=== PATIENT | male | born 1955 | race Caucasian/White ===

== ENCOUNTER 2016-09-16 12:28 | Emergency (ER) | payer OTHER ==
[~2016-09-16] VITALS: Wt 78.0 kg
[~2016-09-16 12:28] MED LIST: FERR325C PO; HYDR-906 PO; OMEP20CA16 PO; ONDA4TAB8 PO; PEG1POWD PO; PROP10TA6 PO; RANI150T9 PO; SUCR1TAB56 PO
[2016-09-16 16:00] LABS: ALBUMIN 3.6 g/dl (3.3-4.9)
[2016-09-16 16:01] LABS: POTASSIUM 4.5 mmol/L (3.5-5.1)
[2016-09-16 16:02] LABS: HEMATOCRIT 38.9 % (42.0-52.0); HEMOGLOBIN 13.5 g/dl (14.0-18.0); MEAN CORPUSCULAR HEMOGLOBIN 32.1 pg (29.0-33.0); MEAN CORPUSCULAR HGB CONC 34.7 g/dl (32.0-37.0); MEAN CORPUSCULAR VOLUME 92.4 fl (82.0-101.0); MEAN PLATELET VOLUME 8.8 fl (7.4-10.4); PLATELET COUNT 57 10^3/UL (140-440); RED BLOOD COUNT 4.21 10^6/ul (4.70-6.10); RED CELL DISTRIBUTION WIDTH 15.3 % (11.5-14.5); UNCORRECTED WBC 4.5 10^3/ul (4.8-10.8); WHITE BLOOD COUNT 4.5 10^3/ul (4.8-10.8)
--- NOTE | 2016-09-16 16:02 | ERD ---
ER Documentation Chief Complaint Date/Time DATE: 09/16/16 TIME: 15:34 Chief Complaint R EY SWELLING X 3 DAYS HPI This is a 60-year-old who male presents to ED with bilateral eye swelling for 3 days. Eye swelling and redness has been constant. Patient denies using eye drops or any other medication for relief. Denies allergies to the environment. Patient has a history of cirrhosis from alcohol and hypertension for 7 years. Patient states his chest and the back of his head have felt warm for 3 days. Complains of bilateral temporal headache. Patient denies history of cardiac abnormality. Patient has mild pain in the right upper quadrant. He was last hospitalized 2 months ago from his cirrhosis. Denies nausea, vomiting, diarrhea , fever, dizziness or fainting ROS All systems reviewed and are negative except as per history of present illness. Medications Home Meds Active Scripts Azithromycin* (Zithromax*) 250 Mg Tablet, 250 MG PO .ZPACK DIRECTED, #6 TAB TAKE 500 MG (2 TABS) THE FIRST DAY THEN 250 MG (1 TAB) DAYS 2-5 Prov:MODE FRIAS PA-C 09/16/16 Polymyxin B Sulfate-TMP* (Polymyxin B-TMP Eye Drops*) 10 Ml Drops, 1 DROP BOTH EYES QID for 7 Days, EA Prov:MODE FRIAS PA-C 09/16/16 Tramadol HCl (Tramadol HCl) 50 Mg Tablet, 50 MG PO Q4 Y for PAIN, #15 TAB Prov:MODE FRIAS PA-C 09/16/16 Ranitidine Hcl* (Zantac*) 150 Mg Tablet, 150 MG PO BID Y for EPIGASTRIC PAIN, # 30 TAB Prov:MODE ALVES 05/18/16 Sucralfate* (Carafate*) 1 Gm Tab, 1 GM PO QID, #30 TAB Prov:MODE ALVES 05/18/16 Peg 3350/Na Sulf,Bicarb,Cl/KCl (Golytely Packet) 1 Each Powd.pack, 1 EACH PO DAILY for CONSTIPATION, #1 Prov:ANGIE PATEL MD 04/24/16 Ondansetron Hcl* (Zofran*) 4 Mg Tablet, 4 MG PO TID, #30 TAB Prov:ANGIE PATEL MD 04/24/16 Hydrocodone/Acetaminophen ([place] 5-325 Tablet) 1 Each Tablet, 1 TAB PO TID Y for PAIN, #12 TAB Prov:ANGIE PATEL MD 04/24/16 Reported Medications Omeprazole* (Omeprazole*) 20 Mg Capsule.dr, 20 MG PO DAILY, #30 CAP 10/01/15 Propranolol Hcl* (Propranolol Hcl*) 10 Mg Tablet, 10 MG PO BID, TAB 10/01/15 Ferrous Sulfate (Iron) 325 Mg Capsr, 325 MG PO BID 11/05/14 Allergies Allergies: Coded Allergies: Penicillins (Verified Allergy, Unknown, rash, 09/16/16) PMhx/Soc History of Surgery: Yes (GALLBALDDER REMOVAL 2008, HERNIA REPAIR 2008) Anesthesia Reaction: No Hx Neurological Disorder: No Hx Respiratory Disorders: No Hx Cardiac Disorders: Yes (htn) Hx Psychiatric Problems: No Hx Miscellaneous Medical Probl: No Hx Alcohol Use: Yes Hx Substance Use: No Hx Tobacco Use: No Smoking Status: Former smoker FmHx Family history is noncontributory to chief complaint Family History: diabetes Physical Exam Vitals Vital Signs Date Time Temp Pulse Resp B/P Pulse Ox O2 Delivery O2 Flow Rate FiO2 09/16/16 12:32 98.0 74 18 161/66 99 Physical Exam INITIAL VITAL SIGNS: Reviewed by me. GENERAL: Alert and interactive. No acute distress. HEAD: Head is normocephalic and atraumatic. EYES: EOMI. Bilateral erythema and conjunctiva injection. ENT: Moist mucosa. NECK: Supple. Full range of motion. RESPIRATORY: Normal respiratory effort. Clear breath sounds bilaterally. No wheezing, rales, or rhonchi. CV: Regular rate and rhythm. Normal S1 S2. No S3 or S4. No murmurs. ABDOMEN: Soft, Slight abdominal distention, no signs of ascites, non-tender. No guarding. No rebound. No masses. EXTREMITIES: No deformity. SKIN: Warm and dry. NEUROLOGIC: Alert and oriented x 4. Speech is normal. Moves all extremities equally. No motor or sensory deficits noted. Result Diagram: 09/16/16 1525 09/16/16 1525 Results 24 hrs Laboratory Tests Test 09/16/16 15:25 Alanine Aminotransferase (ALT/SGPT) 35IU/L Albumin 3.6g/dl Albumin/Globulin Ratio 1.12 Alkaline Phosphatase 81IU/L Anion Gap 16 Anisocytosis 1+ Aspartate Amino Transf (AST/SGOT) 34IU/L Blood Morphology Comment Blood Urea Nitrogen 10mg/dl Calcium Level 8.9mg/dl Carbon Dioxide Level 24mmol/L Chloride Level 105mmol/L Creatinine 0.64mg/dl Direct Bilirubin 0.00mg/dl Eosinophils # 0.110^3/ul Eosinophils % 3.0% Globulin 3.20g/dl Glucose Level 176mg/dl Hematocrit 38.9% Hemoglobin 13.5g/dl Indirect Bilirubin 0.6mg/dl Lipase 122U/L Lymphocytes # 0.910^3/ul Lymphocytes % 20.0% Macrocytosis RARE Mean Corpuscular Hemoglobin 32.1pg Mean Corpuscular Hemoglobin Concent 34.7g/dl Mean Corpuscular Volume 92.4fl Mean Platelet Volume 8.8fl Monocytes # 0.310^3/ul Monocytes % 6.0% Neutrophils # 3.210^3/ul Neutrophils % 71.0% Platelet Count 5710^3/UL Platelet Estimate PLT APPEAR DECREASED Potassium Level 4.5mmol/L Red Blood Count 4.2110^6/ul Red Cell Distribution Width 15.3% Sodium Level 140mmol/L Total Bilirubin 0.6mg/dl Total Protein 6.8g/dl White Blood Count 4.510^3/ul Procedures/MDM EMERGENCY DEPARTMENT COURSE / MEDICAL DECISION MAKING: This is a 60-year-old male who comes to the emergency room secondary to complaints of bilateral eye swelling, and chest "warmness" for 3 days. Patient has a history of cirrhosis and hypertension. The patient was given in the department. On re-evaluation, the patient was feeling improved. Lab results reviewed and showed slightly lowered platelets but no other significant acute abnormalities. Radiology: PROCEDURE: XR Chest. CLINICAL INDICATION: Chest pain TECHNIQUE: Single PA chest COMPARISON: 11/05/2014 FINDINGS: The cardiomediastinal silhouette is within normal limits of size .. Increased air space opacity in the medial aspect of the right lower lobe this may represent atelectasis or infiltrate. Lungs are otherwise clear without pleural effusion or focal consolidation. No pneumothorax. The osseous structures and soft tissues are unremarkable. IMPRESSION: 1. Increased air space opacity in the medial aspect of the right lower lobe. Atelectasis versus infiltrate.. PROCEDURE: US Abdomen (right upper quadrant). CLINICAL INDICATION: Abdominal pain. TECHNIQUE: Multiple real-time longitudinal and transverse images of the right upper quadrant of the abdomen were acquired utilizing a curved array transducer. Images were reviewed on a high-resolution PACS workstation. COMPARISON: Correlation with CT from 04/24/2016 FINDINGS: The liver is normal in size and demonstrates coarsened echotexture without focal mass or intrahepatic biliary dilatation. The gallbladder surgically absent. No intra or extrahepatic biliary dilatation is seen. The common bile duct measures 3.8 mm in maximal dimension. The visualized portions of the pancreas are unremarkable with obscuration of the tail of the pancreas. No free fluid is identified. The right kidney measures 11.0 cm in length. There is normal echogenicity within the right kidney. There is no perinephric fluid collection. No hydronephrosis, mass, or calculus is seen. IMPRESSION: 1. Coarsened hepatic echotexture suggesting chronic hepatic parenchymal disease. 2. Status post cholecystectomy. EKG: Normal sinus rhythm with a rate of 66 bpm. Normal EKG The primary diagnosis is pneumonia. Secondary diagnosis is conjunctivitis. I have low suspicion for cardiac ischemia or cardiopulmonary abnormalities due to normal EKG. I have low suspicion for orbital cellulitis, pancreatitis, or other emergent conditions at this time. Discharge: I have discussed the lab results and diagnostic findings with the patient and answered any questions or concerns. The patient was discharged with a prescription for Polytrim ophthalmic drops. The patient was advised to followup with their PMD in 1-2 days and to return to the Emergency Department if there are any new or worsening symptoms. The patient understood and agreed with the diagnosis, treatment and plan. The patient is stable for discharge at this time. Departure Diagnosis: Primary Impression: Pneumonia Additional Impression: Conjunctivitis Condition: Stable Patient Instructions: Conjunctivitis Caused by Infection Additional Instructions: Follow-up with your primary care physician within 1 week. Return to the emergency department immediately should you have any new or worsening symptoms, uncontrolled fevers, or other unexplained symptoms. Take all medications as directed. MODE FRIAS PA-C Sep 16, 2016 15:46
[2016-09-16 16:03] LABS: BILIRUBIN,INDIRECT 0.6 mg/dl (0-1.1); BILIRUBIN,TOTAL 0.6 mg/dl (0.2-1.3); CREATININE 0.64 mg/dl (0.61-1.24)
[2016-09-16 16:04] LABS: ALBUMIN/GLOBULIN RATIO 1.12; CALCIUM 8.9 mg/dl (8.4-10.2); TOTAL PROTEIN 6.8 g/dl (6.1-8.1)
--- NOTE | 2016-09-16 16:13 | RADRPT ---
PROCEDURE: XR Chest. CLINICAL INDICATION: Chest pain TECHNIQUE: Single PA chest COMPARISON: 11/05/2014 FINDINGS: The cardiomediastinal silhouette is within normal limits of size .. Increased air space opacity in t he medial aspect of the right lower lobe this may represent atelectasis or infiltrate. Lungs are ot herwise clear without pleural effusion or focal consolidation. No pneumothorax. The osseous struct ures and soft tissues are unremarkable. IMPRESSION: 1. Increased air space opacity in the medial aspect of the right lower lobe. Atelectasis versus inf iltrate.. RPTAT:AAJJ Jeramy Barba Physician Date Time Electronically viewed and signed by Physician Rossana on 09/16/2016 16:13 JAQUAN/
[2016-09-16 16:21] LABS: CONDITION 1; LH ANALYZER COMMENTS 1
[2016-09-16 16:51] LABS: EOSINOPHILS # 0.1 10^3/ul (0.0-0.5); LYMPHOCYTES # 0.9 10^3/ul (0.8-2.9); MONOCYTE # 0.3 10^3/ul (0.3-0.9); NEUTROPHIL # 3.2 10^3/ul (1.6-7.5)
--- NOTE | 2016-09-16 16:51 | RADRPT ---
PROCEDURE: US Abdomen (right upper quadrant). CLINICAL INDICATION: Abdominal pain. TECHNIQUE: Multiple real-time longitudinal and transverse images of the right upper quadrant of th e abdomen were acquired utilizing a curved array transducer. Images were reviewed on a high-resoluti on PACS workstation. COMPARISON: Correlation with CT from 04/24/2016 FINDINGS: The liver is normal in size and demonstrates coarsened echotexture without focal mass or intrahepati c biliary dilatation. The gallbladder surgically absent. No intra or extrahepatic biliary dilata tion is seen. The common bile duct measures 3.8 mm in maximal dimension. The visualized portions o f the pancreas are unremarkable with obscuration of the tail of the pancreas. No free fluid is iden tified. The right kidney measures 11.0 cm in length. There is normal echogenicity within the right kidney. There is no perinephric fluid collection. No hydronephrosis, mass, or calculus is seen. IMPRESSION: 1. Coarsened hepatic echotexture suggesting chronic hepatic parenchymal disease. 2. Status post cholecystectomy. RPTAT: JJ .Evans Gutierrez MD, Date Time Electronically viewed and signed by .Evans Gutierrez MD, on 09/16/2016 16:51 .A/
[2016-09-16 16:52] LABS: ANISOCYTOSIS 1+; PLATELET ESTIMATE PLT APPEAR DECREASED
[2016-09-16] MEDS ORDERED: POLY10DR19 BOTH EYES (17:04)
[2016-09-16] MEDS ORDERED: TRAM50TA2 PO (17:04)
[2016-09-16] MEDS ORDERED: AZIT250T94 PO (17:06)
== END 2016-09-16 17:19 | disposition home or self-care (01) ==
LOC: FTE 12:28
DX: J18.9 Pneumonia, unspecified organism (principal); H10.9 Unspecified conjunctivitis; I10 Essential (primary) hypertension; Z87.891 Personal history of nicotine dependence
CPT/HCPCS: 71010; 76705; 80053; 83690; 85025; 93005; Z7502

== ENCOUNTER 2017-02-19 08:46 | Emergency (ER) | payer OTHER ==
[~2017-02-19] VITALS: Ht 175.3 cm; Wt 83.8 kg
[~2017-02-19 08:46] MED LIST changes: +AZIT250T94 PO; +POLY10DR19 BOTH EYES; +TRAM50TA2 PO
[2017-02-19 08:49] VITALS: Ht 175.3 cm; Wt 83.8 kg
[2017-02-19] MEDS ORDERED: ONDANSETRON 4 MG INJ IV STA (08:59)
[2017-02-19] MEDS ORDERED: morphine 4 MG/ML VIAL IV STA (08:59)
[2017-02-19 09:39] LABS: ADD SCAN DIFF NO
[2017-02-19 09:53] LABS: ABNORMAL IP MESSAGE 1; HEMATOCRIT 37.9 % (42.0-52.0); HEMOGLOBIN 13.3 g/dl (14.0-18.0); MEAN CORPUSCULAR HEMOGLOBIN 31.7 pg (29.0-33.0); MEAN CORPUSCULAR HGB CONC 35.1 g/dl (32.0-37.0); MEAN CORPUSCULAR VOLUME 90.2 fl (82.0-101.0); MEAN PLATELET VOLUME 11.5 fl (7.4-10.4); RED CELL DISTRIBUTION WIDTH 14.7 % (11.5-14.5); WHITE BLOOD COUNT 3.1 10^3/ul (4.8-10.8)
--- NOTE | 2017-02-19 09:55 | RADRPT ---
PROCEDURE: CT Abdomen and Pelvis without contrast. CLINICAL INDICATION: Abdominal pain, and distension. TECHNIQUE: CT scan of the abdomen and pelvis without contrast was performed on a multidetector hig h-resolution CT scanner. The patient was scanned without intravenous contrast. Coronal and sagittal reformatted images were obtained from the axial source images. Images were reviewed on a high-resol [employer] PACS workstation. The total exam CTDI equals 15.46 mGy and the total exam DLP equals 1047.91 m Gy-cm. One or more of the following dose reduction techniques were used: Automated exposure control. Adjustment of the mA and/or kV according to patient size. Use of iterative reconstruction technique. COMPARISON: CT abdomen and pelvis 04/24/2016 FINDINGS: CT abdomen: The lung bases are remarkable for subsegmental atelectasis in the right lung base. The heart size i s normal, without pericardial thickening or effusion. There is an atrophic right anterior hepatic lobe with diffuse fatty infiltration and nodular contour in keeping with cirrhosis. There is marked splenomegaly. Small-caliber para esophageal and upper abdominal varices are again noted. Splenorenal shunt appears more prominent on the current study. Th ere is small volume abdominopelvic ascites. The stomach is partially collapsed, but is grossly unremarkable. The pancreas as visualized is norm al. The gallbladder is surgically absent. There is no evidence for biliary dilatation. The adrenal glands are symmetric and normal. The kidneys are symmetrically unremarkable as well. No renal puja culus or obstructive uropathy or mass lesion is seen. The aorta is of normal caliber. There is no retroperitoneal lymphadenopathy. The patricia hepatis reg ion is clear. The bowel and mesentery, as visualized, are equally unremarkable. There is a small hi atal hernia. CT pelvis: There are fat and fluid containing bilateral inguinal scrotal hernias right being more prominent. T he small bowel loops situated within the pelvis are unremarkable. The pelvic organs are normal. Th e pelvic sidewalls and inguinal regions are clear. The sigmoid colon and rectum are remarkable for sigmoid diverticulosis. No mass, lymphadenopathy, or free fluid is seen. No acute inflammation is seen. The surrounding osseous structures are remarkable for degenerative spondylosis of the spine. No osteolytic or osteoblastic lesion is detected. IMPRESSION: 1. Morphologic changes of cirrhosis. 2. Stigmata of portal hypertension with evidence of marked splenomegaly, small volume abdominopelvi c ascites, small-caliber para esophageal and upper abdominal varices. Interval increase in caliber of the splenorenal shunt. 3. Sigmoid diverticulosis without evidence of acute diverticulitis. 4. Fat and fluid containing bilateral inguinal scrotal hernias. 5. Status post cholecystectomy. No biliary ductal dilatation. 6. Small hiatal hernia. RPTAT: BB .Jose Hughes MD, MD Date Time Electronically viewed and signed by .Jose Hughes MD, on 02/19/2017 09:55 .O/
[2017-02-19 10:00] LABS: PLATELET COUNT 24 10^3/UL (140-415)
[2017-02-19 10:05] LABS: INR 1.29; PROTIME 16.2 Sec (12.2-14.2); PT RATIO 1.3
[2017-02-19 10:06] LABS: PARTIAL THROMBOPLASTIN TIME 32.7 Sec (25.0-35.0)
[2017-02-19 10:10] LABS: ALBUMIN 4.2 g/dl (3.3-4.9); ALBUMIN/GLOBULIN RATIO 1.55; CALCIUM 8.3 mg/dl (8.4-10.2); CREATININE 0.6 mg/dl (0.61-1.24); POTASSIUM 3.6 mmol/L (3.5-5.1); TOTAL PROTEIN 6.9 g/dl (6.1-8.1)
[2017-02-19 10:12] LABS: ADD UMIC YES; UR ASCORBIC ACID NEGATIVE (NEGATIVE); UR BILIRUBIN (Dip) NEGATIVE (NEGATIVE); UR BLOOD (Dip) 2+ mg/dL (NEGATIVE); UR CLARITY CLEAR (CLEAR); UR COLOR YELLOW (YELLOW); UR GLUCOSE (Dip) NEGATIVE (NEGATIVE); UR KETONES (Dip) TRACE mg/dL (NEGATIVE); UR LEUKOCYTE ESTERASE (Dip) NEGATIVE Leu/ul (NEGATIVE); UR NITRITE (Dip) NEGATIVE (NEGATIVE); UR RBC 1 /HPF (0-5); UR SPECIFIC GRAVITY (Dip) 1.005 (1.003-1.030); UR TOTAL PROTEIN (Dip) NEGATIVE (NEGATIVE); UR UROBILINOGEN (Dip) NEGATIVE (NEGATIVE)
--- NOTE | 2017-02-19 10:36 | ERD ---
ER Documentation Chief Complaint Date/Time DATE: 02/19/17 TIME: 10:34 Chief Complaint Needs paracentesis HPI This is a 61-year-old male with a history of liver cirrhosis who presents to the emergency room for evaluation of abdominal discomfort, and mild distention. He states his symptoms have been present for 1 weeks duration. He denies fevers associated with this, denies any nausea, vomiting or diarrhea. The patient denies any aggravating or relieving factors for his symptoms and came to the emergency room today for evaluation. Patient does state that he has had a paracentesis in the past and states that he thinks he might need another one. ROS All systems reviewed and are negative except as per history of present illness. Medications Home Meds Active Scripts Azithromycin* (Zithromax*) 250 Mg Tablet, 250 MG PO .ZPACK DIRECTED, #6 TAB TAKE 500 MG (2 TABS) THE FIRST DAY THEN 250 MG (1 TAB) DAYS 2-5 Prov:MODE FRIAS PA-C 09/16/16 Polymyxin B Sulfate-TMP* (Polymyxin B-TMP Eye Drops*) 10 Ml Drops, 1 DROP BOTH EYES QID for 7 Days, EA Prov:MODE FRIAS PA-C 09/16/16 Tramadol HCl (Tramadol HCl) 50 Mg Tablet, 50 MG PO Q4 Y for PAIN, #15 TAB Prov:MODE FRIAS PA-C 09/16/16 Ranitidine Hcl* (Zantac*) 150 Mg Tablet, 150 MG PO BID Y for EPIGASTRIC PAIN, # 30 TAB Prov:MODE ALVES 05/18/16 Sucralfate* (Carafate*) 1 Gm Tab, 1 GM PO QID, #30 TAB Prov:MODE ALVES 05/18/16 Peg 3350/Na Sulf,Bicarb,Cl/KCl (Golytely Packet) 1 Each Powd.pack, 1 EACH PO DAILY for CONSTIPATION, #1 Prov:ANGIE PATEL MD 04/24/16 Ondansetron Hcl* (Zofran*) 4 Mg Tablet, 4 MG PO TID, #30 TAB Prov:ANGIE PATEL MD 04/24/16 Hydrocodone/Acetaminophen ([place] 5-325 Tablet) 1 Each Tablet, 1 TAB PO TID Y for PAIN, #12 TAB Prov:ANGIE PATEL MD 04/24/16 Reported Medications Omeprazole* (Omeprazole*) 20 Mg Capsule.dr, 20 MG PO DAILY, #30 CAP 10/01/15 Propranolol Hcl* (Propranolol Hcl*) 10 Mg Tablet, 10 MG PO BID, TAB 10/01/15 Ferrous Sulfate (Iron) 325 Mg Capsr, 325 MG PO BID 11/05/14 Allergies Allergies: Coded Allergies: Penicillins (Verified Allergy, Unknown, rash, 02/19/17) PMhx/Soc History of Surgery: Yes (GALLBALDDER REMOVAL 2008, HERNIA REPAIR 2008) Anesthesia Reaction: No Hx Neurological Disorder: No Hx Respiratory Disorders: No Hx Cardiac Disorders: Yes (htn) Hx Psychiatric Problems: No Hx Miscellaneous Medical Probl: No Hx Alcohol Use: Yes Hx Substance Use: No Hx Tobacco Use: No Smoking Status: Never smoker Physical Exam Vitals Vital Signs Date Time Temp Pulse Resp B/P Pulse Ox O2 Delivery O2 Flow Rate FiO2 02/19/17 08:49 98.1 82 18 187/89 96 Physical Exam INITIAL VITAL SIGNS: Reviewed by me GENERAL: The patient is well developed and appropriate for usual state of health in no apparent distress HEENT: Pupils equal, round, and reactive to light. EOMI. There is no scleral icterus. NECK: C-spine is soft and supple, there is no meningismus. There is no cervical lymphadenopathy. LUNGS: Clear to auscultation bilaterally. There are no rales, wheezes or rhonchi. HEART: Regular rate and rhythm, no murmurs, clicks, rubs or gallops. ABDOMEN: Epigastric tenderness to palpation, mild distention, otherwise nontender there are bowel sounds in all four quadrants. No rebound or guarding. EXTREMITIES: There is no peripheral cyanosis or edema. No focal swelling or erythema. NEUROLOGICAL: The patient moves all four extremities with 5/5 strength. Cranial nerves II - XII are intact. Normal gait. Alert and oriented SKIN: There is no apparent rash or petechiae. HEME/LYMPHATIC: There is no evidence of excessive bruising or lymphedema. PSYCHIATRIC: The patient does not appear anxious or depressed. Result Diagram: 02/19/17 0920 02/19/17 0920 Results 24 hrs Laboratory Tests Test 02/19/17 09:20 02/19/17 09:30 White Blood Count 3.110^3/ul Red Blood Count 4.2010^6/ul Hemoglobin 13.3g/dl Hematocrit 37.9% Mean Corpuscular Volume 90.2fl Mean Corpuscular Hemoglobin 31.7pg Mean Corpuscular Hemoglobin Concent 35.1g/dl Red Cell Distribution Width 14.7% Platelet Count 2410^3/UL Mean Platelet Volume 11.5fl Prothrombin Time 16.2Sec Prothrombin Time Ratio 1.3 INR International Normalized Ratio 1.29 Activated Partial Thromboplast Time 32.7Sec Sodium Level 137mmol/L Potassium Level 3.6mmol/L Chloride Level 103mmol/L Carbon Dioxide Level 22mmol/L Anion Gap 16 Blood Urea Nitrogen 6mg/dl Creatinine 0.60mg/dl Glucose Level 96mg/dl Calcium Level 8.3mg/dl Total Bilirubin 2.0mg/dl Direct Bilirubin 0.00mg/dl Indirect Bilirubin 2.0mg/dl Aspartate Amino Transf (AST/SGOT) 110IU/L Alanine Aminotransferase (ALT/SGPT) 77IU/L Alkaline Phosphatase 78IU/L Total Protein 6.9g/dl Albumin 4.2g/dl Globulin 2.70g/dl Albumin/Globulin Ratio 1.55 Lipase 96U/L Urine Color YELLOW Urine Clarity CLEAR Urine pH 6.0 Urine Specific [place] 1.005 Urine Ketones TRACEmg/dL Urine Nitrite NEGATIVEmg/dL Urine Bilirubin NEGATIVEmg/dL Urine Urobilinogen NEGATIVEmg/dL Urine Leukocyte Esterase NEGATIVELeu/ul Urine Microscopic RBC 1/HPF Urine Microscopic WBC 0/HPF Urine Hemoglobin 2+mg/dL Urine Glucose NEGATIVEmg/dL Urine Total Protein NEGATIVEmg/dl Current Medications Medications (Trade) Dose Ordered Sig/Landon Route PRN Reason Start Time Stop Time Status Last Admin Dose Admin Morphine Sulfate (morphine) 4 mg ONCE STAT IV 02/19/17 08:59 02/19/17 09:00 DC 02/19/17 09:27 Ondansetron HCl (Zofran Inj) 4 mg ONCE STAT IV 02/19/17 08:59 02/19/17 09:00 DC 02/19/17 09:27 Procedures/MDM CT abdomen pelvis without: 1. Morphologic changes of cirrhosis. 2. Stigmata of portal hypertension with evidence of marked splenomegaly, small volume abdominopelvic ascites, small-caliber para esophageal and upper abdominal varices. Interval increase in caliber of the splenorenal shunt. 3. Sigmoid diverticulosis without evidence of acute diverticulitis. 4. Fat and fluid containing bilateral inguinal scrotal hernias. 5. Status post cholecystectomy. No biliary ductal dilatation. 6. Small hiatal hernia. This 61-year-old male presents to the emergency room for evaluation of abdominal distention. When I evaluated this patient he was only mildly distended and had epigastric tenderness to palpation. Lab work was obtained and lab work does show pancytopenia with thrombocytopenia. CT of the abdomen pelvis was also obtained to rule out an obstruction and a CT of the abdomen and pelvis does not show any obstruction and does not show large amount of ascites which can be drained with paracentesis. This patient is afebrile. His pain is controlled with morphine in the ER and he will be discharged at this time with a prescription for [place] for breakthrough pain. Departure Diagnosis: Primary Impression: Pancytopenia Additional Impressions: Abdominal pain Liver cirrhosis Condition: Stable ARMEN JEONG DO Feb 19, 2017 10:36
[2017-02-19] MEDS ORDERED: HYDR-906 PO (10:37)
[2017-02-19 11:05] VITALS: BP 142/76; PULSE 78; RESP 18; TEMP 98.1
[2017-02-19 12:07] LABS: EOSINOPHILS # 0.2 10^3/ul (0.0-0.5); LYMPHOCYTES # 0.3 10^3/ul (0.8-2.9); MONOCYTE # 0.1 10^3/ul (0.3-0.9); NEUTROPHIL # 2.4 10^3/ul (1.6-7.5); PLATELET ESTIMATE PLT APPEAR DECREASED
== END 2017-02-19 11:10 | disposition home or self-care (01) ==
LOC: E/R 08:46
DX: D61.818 Other pancytopenia (principal); K74.60 Unspecified cirrhosis of liver; I10 Essential (primary) hypertension
CPT/HCPCS: 74176; 80053; 81001; 83690; 85025; 85610; 85730; J2270; J2405; 36415; 96374; 96375

== ENCOUNTER 2018-09-03 09:15 | Emergency (ER) | payer OTHER ==
[~2018-09-03] VITALS: Wt 79.0 kg
[~2018-09-03 09:15] MED LIST changes: +AZIT250T PO; -AZIT250T94 PO; +HYDR-4011 PO; -HYDR-906 PO; +RANI150T35 PO; -RANI150T9 PO
[2018-09-03 09:22] VITALS: BP 146/66; PULSE 77; RESP 18
[2018-09-03] MEDS ORDERED: AZIT250T PO (09:43)
[2018-09-03] MEDS ORDERED: D-ME473S2 PO (09:43)
--- NOTE | 2018-09-03 09:45 | ERD ---
ER Documentation Chief Complaint Chief Complaint COUGH X 2 WEEKS HPI 62-year-old male presents with worsening productive cough for the last 2 weeks. Denies shortness of breath, chest pain, fevers. Denies any leg swelling, hemoptysis. ROS All systems reviewed and are negative except as per history of present illness. Medications Home Meds Active Scripts Dextromethorphan Hb-Promethazine Hcl* (Promethazine DM* Syrup) 473 Ml Syrup, 5 ML PO Q6 PRN for COUGH for 5 Days, ML Prov:MARIOLA HEATH MD 09/03/18 Azithromycin* (Zithromax*) 250 Mg Tablet, 250 MG PO .ZPACK DIRECTED, #6 TAB TAKE 500 MG (2 TABS) THE FIRST DAY THEN 250 MG (1 TAB) DAYS 2-5 Prov:MARIOLA HEATH MD 09/03/18 Hydrocodone/Acetaminophen ([place] 5-325 Tablet) 1 Each Tablet, 1 TAB PO Q6H PRN for PAIN, #20 TAB Prov:ARMEN JEONG DO 02/19/17 Azithromycin* (Zithromax*) 250 Mg Tablet, 250 MG PO .ZPACK DIRECTED, #6 TAB TAKE 500 MG (2 TABS) THE FIRST DAY THEN 250 MG (1 TAB) DAYS 2-5 Prov:MODE FIRAS PA-C 09/16/16 Polymyxin B Sulfate-TMP* (Polymyxin B-TMP Eye Drops*) 10 Ml Drops, 1 DROP BOTH EYES QID for 7 Days, EA Prov:MODE FRIAS PA-C 09/16/16 Tramadol HCl (Tramadol HCl) 50 Mg Tablet, 50 MG PO Q4 PRN for PAIN, #15 TAB Prov:MOED FRIAS PA-C 09/16/16 Ranitidine Hcl* (Zantac*) 150 Mg Tablet, 150 MG PO BID PRN for EPIGASTRIC PAIN, #30 TAB Prov:MODE ALVES 05/18/16 Sucralfate* (Carafate*) 1 Gm Tab, 1 GM PO QID, #30 TAB Prov:MODE ALVES 05/18/16 Peg 3350/Na Sulf,Bicarb,Cl/KCl (Golytely Packet) 1 Each Powd.pack, 1 EACH PO DAILY for CONSTIPATION, #1 Prov:ANGIE PATEL MD 04/24/16 Ondansetron Hcl* (Zofran*) 4 Mg Tablet, 4 MG PO TID, #30 TAB Prov:ANGIE PATEL MD 04/24/16 Hydrocodone/Acetaminophen ([place] 5-325 Tablet) 1 Each Tablet, 1 TAB PO TID PRN for PAIN, #12 TAB Prov:ANGIE PATEL MD 04/24/16 Reported Medications Omeprazole* (Omeprazole*) 20 Mg Capsule.dr, 20 MG PO DAILY, #30 CAP 10/01/15 Propranolol Hcl* (Propranolol Hcl*) 10 Mg Tablet, 10 MG PO BID, TAB 10/01/15 Ferrous Sulfate (Iron) 325 Mg Capsr, 325 MG PO BID 11/05/14 Allergies Allergies: Coded Allergies: Penicillins (Verified Allergy, Unknown, rash, 02/19/17) PMhx/Soc History of Surgery: Yes (GALLBALDDER REMOVAL 2008, HERNIA REPAIR 2008) Anesthesia Reaction: No Hx Neurological Disorder: No Hx Respiratory Disorders: No Hx Cardiac Disorders: Yes (htn) Hx Psychiatric Problems: No Hx Miscellaneous Medical Probl: No Hx Alcohol Use: Yes Hx Substance Use: No Hx Tobacco Use: No FmHx Family History: No diabetes, No coronary disease, No other Physical Exam Vitals Vital Signs Date Temp Pulse Resp B/P (MAP) Pulse Ox O2 O2 Flow FiO2 Time Delivery Rate 09/03/18 98.1 77 18 146/66 99 09:22 (92) Physical Exam Const: No acute distress Head: Atraumatic Eyes: Normal Conjunctiva ENT: Normal External Ears, Nose and Mouth. TMs and oropharynx normal. Neck: Full range of motion. No meningismus. No JVD. Resp: Clear to auscultation bilaterally with no rales, wheezing or retractions. Slight rhonchi. Cardio: Regular rate and rhythm, no murmurs Abd: Soft, non tender, non distended. Normal bowel sounds Skin: No petechiae or rashes Back: No midline or flank tenderness Ext: No cyanosis, or edema. No calf swelling or Homans sign. Neur: Awake and alert Psych: Normal Mood and Affect Procedures/MDM Patient presents with productive cough over the last 2-3 weeks. He has no signs of hypoxemia, rest or distress, signs of abdominal pain, chest pain, pneumonia on exam. Given duration per patient request we will treat empirically with Zit hromax, promethazine DM, primary care follow-up and return precautions. The patient was stable with no new complaints during the ER course. Clinically, there is no current evidence to suggest meningitis, sepsis, acute abdomen, pneumonia, stroke, acute coronary syndrome, pulmonary embolism, aortic dissection or any other emergent condition appearing to require further evaluation or hospitalization. Patient counseled regarding my diagnostic impression and care plan. Prior to discharge all questions answered. Pt agrees with treatment plan and understands strict return precautions. Pt is instructed to follow up with primary care provider within 24-48 hours. Precautionary instructions provided including instructions to return to the ER if not improving or for any worsening or changing symptoms or concerns. Departure Diagnosis: Primary Impression: Cough Condition: Stable Patient Instructions: Bronchitis, Antiobiotic Treatment (Adult) Referrals: [facility] (PCP) Additional Instructions: Recheck for new or worsening symptoms with primary care doctor. MARIOLA HEATH MD Sep 03, 2018 09:45
== END 2018-09-03 10:16 | disposition home or self-care (01) ==
LOC: FTE 09:15
DX: R05 Cough (principal); I10 Essential (primary) hypertension
CPT/HCPCS: 99283

== ENCOUNTER 2019-02-19 15:18 | Inpatient (IN) | payer OTHER ==
[~2019-02-19] VITALS: Ht 170.2 cm; Wt 82.0 kg
[~2019-02-19 15:18] MED LIST changes: +ATEN-51 PO; +D-ME473S2 PO; +FURO20TA3 PO; +LACT20SO2 PO; +MULTI PO; +PANT40TA4 PO; +PROP20TA4 PO; +SPIR50TA PO
--- NOTE | 2019-02-19 15:43 | ERD ---
ER Documentation Chief Complaint Chief Complaint AP SINCE LAST NIGHT HPI 63-year-old male history of hypertension, liver cirrhosis, esophageal varices status post ligation and GI bleed presents to the ED complaining of a 1 day hist ory of crampy, generalized, moderate, nonradiating abdominal pain. He denies nausea, vomiting, diarrhea or constipation. No hematemesis, hematochezia or melanotic stools. No relieving or exacerbating factors. No chest pain, palpitations or shortness of breath. Denies dysuria, polyuria, hematuria or flank pain. No fevers or chills. ROS All systems reviewed and are negative except as per history of present illness. Medications Home Meds Reported Medications Sucralfate* (Carafate*) 1 Gm Tab, 1 GM PO AC MEALS AND BEDTIME, TAB 02/19/19 Spironolactone* (Aldactone*) 50 Mg Tablet, 50 MG PO DAILY, #30 TAB 02/19/19 Pantoprazole* (Pantoprazole*) 40 Mg Tablet.dr, 40 MG PO AC BREAKFAST, TAB 02/19/19 Multivitamins* (Theragran*) 1 Tab Tab, 1 TAB PO DAILY, TAB 02/19/19 Furosemide* (Furosemide*) 20 Mg Tablet, 20 MG PO DAILY, #60 TAB 02/19/19 Atenolol* (Atenolol*) 25 Mg Tablet, 25 MG PO DAILY, #30 TAB 02/19/19 Hydrocodone/Acetaminophen ([place] 5-325 Tablet) 1 Each Tablet, 1 EACH PO Q4H WHILE AWAKE, TAB 02/19/19 Discontinued Reported Medications Omeprazole* (Omeprazole*) 20 Mg Capsule.dr, 20 MG PO DAILY, #30 CAP 10/01/15 Propranolol Hcl* (Propranolol Hcl*) 10 Mg Tablet, 10 MG PO BID, TAB 10/01/15 Ferrous Sulfate (Iron) 325 Mg Capsr, 325 MG PO BID 11/05/14 Discontinued Scripts Dextromethorphan Hb-Promethazine Hcl* (Promethazine DM* Syrup) 473 Ml Syrup, 5 ML PO Q6 PRN for COUGH for 5 Days, ML Prov:MARIOLA HEATH MD 09/03/18 Azithromycin* (Zithromax*) 250 Mg Tablet, 250 MG PO .GT DIRECTED, #6 TAB TAKE 500 MG (2 TABS) THE FIRST DAY THEN 250 MG (1 TAB) DAYS 2-5 Prov:MARIOLA HEATH MD 09/03/18 Hydrocodone/Acetaminophen ([place] 5-325 Tablet) 1 Each Tablet, 1 TAB PO Q6H PRN for PAIN, #20 TAB Prov:ARMEN JEONG DO 02/19/17 Azithromycin* (Zithromax*) 250 Mg Tablet, 250 MG PO .GT DIRECTED, #6 TAB TAKE 500 MG (2 TABS) THE FIRST DAY THEN 250 MG (1 TAB) DAYS 2-5 Prov:MODE FRIAS PA-C 09/16/16 Polymyxin B Sulfate-TMP* (Polymyxin B-TMP Eye Drops*) 10 Ml Drops, 1 DROP BOTH EYES QID for 7 Days, EA Prov:MODE FRIAS PA-C 09/16/16 Tramadol HCl (Tramadol HCl) 50 Mg Tablet, 50 MG PO Q4 PRN for PAIN, #15 TAB Prov:MODE FRIAS PA-C 09/16/16 Ranitidine Hcl* (Zantac*) 150 Mg Tablet, 150 MG PO BID PRN for EPIGASTRIC PAIN, #30 TAB Prov:MODE ALVES 05/18/16 Sucralfate* (Carafate*) 1 Gm Tab, 1 GM PO QID, #30 TAB Prov:MODE ALVES 05/18/16 Peg 3350/Na Sulf,Bicarb,Cl/KCl (Golytely Packet) 1 Each Powd.pack, 1 EACH PO DAILY for CONSTIPATION, #1 Prov:ANGIE PATEL MD 04/24/16 Ondansetron Hcl* (Zofran*) 4 Mg Tablet, 4 MG PO TID, #30 TAB Prov:ANGIE PATEL MD 04/24/16 Hydrocodone/Acetaminophen ([place] 5-325 Tablet) 1 Each Tablet, 1 TAB PO TID PRN for PAIN, #12 TAB Prov:ANGIE PATEL MD 04/24/16 Allergies Allergies: Coded Allergies: Penicillins (Verified Allergy, Unknown, rash, 02/19/19) PMhx/Soc History of Surgery: Yes (GALLBALDDER REMOVAL 2008, HERNIA REPAIR 2008) Anesthesia Reaction: No Hx Neurological Disorder: No Hx Respiratory Disorders: No Hx Cardiac Disorders: Yes (htn) Hx Psychiatric Problems: No Hx Miscellaneous Medical Probl: No Hx Alcohol Use: Yes (stopped 2015) Hx Substance Use: No Hx Tobacco Use: No FmHx No cancer or stroke Physical Exam Vitals Temp: 98.1. Pulse: 105. Respirations: 18. Blood pressure: 163/79. O2 saturation 99% on room air. Physical Exam Const: Alert, moderate distress Head: Atraumatic Eyes: Normal Conjunctiva. Sclera anicteric. ENT: Normal External Ears, Nose and Mouth. Mucous membranes moist. No erythema or exudate. Neck: Full range of motion. Nontender. No JVD. Resp: Breath sounds are minimally decreased at the bases but otherwise clear to auscultation bilaterally without rales rhonchi wheezes. Cardio: Regular rate and rhythm, no murmurs Abd: Soft, distended, diffusely tender without rebound or guarding. No masses. Skin: No petechiae or rashes Back: No midline or CVA tenderness. Ext: No cyanosis, or edema. No calf swelling or tenderness. Neur: Alert and oriented. Cranial nerves II through XII are grossly intact. Motor and sensory equal bilaterally. No focal deficit. Psych: Normal Mood and Affect Result Diagram: 02/24/19 0549 02/24/19 0549 Results 24 hrs Laboratory Tests Test 02/19/19 15:55 02/19/19 15:57 02/19/19 17:12 Phosphorus Level 3.7 mg/dl Magnesium Level 1.4 mg/dl White Blood Count 9.0 10^3/ul Red Blood Count 4.15 10^6/ul Hemoglobin 12.4 g/dl Hematocrit 36.6 % Mean Corpuscular Volume 88.2 fl Mean Corpuscular Hemoglobin 29.9 pg Mean Corpuscular 33.9 g/dl Hemoglobin Concent Red Cell Distribution Width 14.3 % Platelet Count 32 10^3/UL Mean Platelet Volume 12.5 fl Immature Granulocytes % 0.700 % Neutrophils % % Segmented Neutrophils 76 % % (Manual) Band Neutrophils % (Manual) 7 % Lymphocytes % % Lymphocytes % (Manual) 11 % Monocytes % % Monocytes % (Manual) 5 % Eosinophils % % Basophils % % Basophils % (Manual) 1 % Nucleated Red Blood Cells % 0.0 /100WBC Immature Granulocytes # 0.060 10^3/ul Neutrophils # 10^3/ul Neutrophils # (Manual) 6.9 10^3/ul Band Neutrophils # 0.6 10^3/ul Lymphocytes (Manual) 0.9 10^3/ul Lymphocytes # 10^3/ul Monocytes # 10^3/ul Monocytes # (Manual) 0.4 10^3/ul Eosinophils # 10^3/ul Basophils # 10^3/ul Basophils # (Manual) 0.0 10^3/ul Nucleated Red Blood Cells # 10^3/ul Pathologist Review (Hematology) Platelet Estimate SIG DECREASED Urine Color YELLOW Urine Clarity CLEAR Urine pH 5.0 Urine Specific [place] 1.036 Urine Ketones NEGATIVE mg/dL Urine Nitrite NEGATIVE mg/dL Urine Bilirubin NEGATIVE mg/dL Urine Urobilinogen NEGATIVE mg/dL Urine Leukocyte Esterase NEGATIVE Rohini/ul Urine Microscopic RBC 2 /HPF Urine Microscopic WBC 0 /HPF Urine Mucus FEW /HPF Urine Hemoglobin 2+ mg/dL Urine Glucose 3+ mg/dL Urine Total Protein NEGATIVE mg/dl Path Consult LINNEA RUTHERFORD MD Signing Pathologist Sodium Level 137 mmol/L Potassium Level 3.6 mmol/L Chloride Level 107 mmol/L Carbon Dioxide Level 17 mmol/L Anion Gap 13 Blood Urea Nitrogen 13 mg/dl Creatinine 0.76 mg/dl Est Glomerular Filtrat > 60 mL/min Rate mL/min Glucose Level 402 mg/dl Calcium Level 8.8 mg/dl Total Bilirubin 2.1 mg/dl Direct Bilirubin 0.00 mg/dl Indirect Bilirubin 2.1 mg/dl Aspartate Amino 30 IU/L Transf (AST/SGOT) Alanine 37 IU/L Aminotransferase (ALT/SGPT) Alkaline Phosphatase 54 IU/L Total Protein 6.8 g/dl Albumin 3.5 g/dl Globulin 3.30 g/dl Albumin/Globulin Ratio 1.06 Lipase 51 U/L Bedside Glucose 334 mg/dL Current Medications Medications Dose Sig/Landon Start Time Status Last (Trade) Ordered Route PRN Stop Time Admin Dose Reason Admin Morphine 2 mg ONCE STAT 02/19/19 DC 02/19/19 Sulfate IV 15:56 16:19 (morphine) 02/19/19 15:57 Ondansetron 4 mg ONCE STAT 02/19/19 DC 02/19/19 HCl (Zofran IV 15:56 16:19 Inj) 02/19/19 15:57 Sodium 790 ml @ ONCE ONCE 02/19/19 DC 02/19/19 Chloride 790 mls/hr IV 17:00 17:07 02/19/19 17:59 IV Flush 10 ml STK-MED 02/19/19 DC 02/19/19 (NS 10 ml) ONCE .ROUTE 16:40 16:40 02/19/19 16:41 Sodium 100 ml @ ud STK-MED 02/19/19 DC 02/19/19 Chloride ONCE .ROUTE 16:40 16:40 02/19/19 16:41 Iohexol 150 ml STK-MED 02/19/19 DC 02/19/19 (Omnipaque ONCE .ROUTE 16:40 16:40 300mg/ ml) 02/19/19 16:41 Procedures/MDM DOCUMENTS REVIEWED: ED nurse, prior ED, prior records IMAGING: Chest AP portable: Atelectasis at the bases but no effusions or infiltrates. No mediastinal widening. My interpretation. PROCEDURE: Abdominal ultrasound CLINICAL INDICATION: Abdominal pain and distension TECHNIQUE: Axial and longitudinal chin scale images of the four abdominal quadrants COMPARISON: None FINDINGS: Four quadrant abdominal ultrasound demonstrates no evidence of ascites. IMPRESSION: No ascites visualized RPTAT: HH .Mirza Eisenberg MD, MD Date Time Electronically viewed and signed by .Mirza Eisenberg MD, MD on 02/19/2019 16:49 .W/ PROCEDURE: CT abdomen and pelvis with contrast. CLINICAL INDICATION: Abdominal Pain TECHNIQUE: CT scan of the abdomen and pelvis without oral contrast was per formed and is reconstructed at 2.5 mm contiguous axial intervals from the dome of the diaphragm to the inferior pubic rami.. The patient was scanned with intravenous contrast. Sagittal and coronal reformatted images were obtained from the axial source images. The calculated radiation dose measures 971 mGy centimeters. The CTDI measures 14 mGy. Individualized dose optimization technique was used for the performance of this exam. This included 1. Automated exposure control. 2. Adjustment of the mA and / or kV according to the patient's size. 3. Use of iterative reconstructed technique. DICOM images are available. COMPARISON: CT abdomen pelvis August 27, 2017 FINDINGS: The lung bases are clear of any infiltrate or nodule. There is elevation right hemidiaphragm with atelectasis on the diaphragmatic aspect of the right middle lobe and the right lower lobe. Noted are coronary artery calcifications. No effusion is seen. The right lobe of the liver inch shrunken and there is hypertrophy of the left lobe. Noted is a nodular contour to the liver compatible with cirrhosis. There is heterogeneous diminished attenuation. No discrete mass or ductal dilatation is present. The patient is post cholecystectomy and presumed pathologically and there is trace pneumobilia within non dilated ducts. Noted is chronic occlusion of the portal vein with cavernous transformation. There are extensive varices in the upper abdomen consistent with portal hypertension. Noted is marked splenomegaly. No adrenal or pancreatic abnormalities present. Kidneys enhance symmetrically and are of normal size and contour. No hydronephrosis, calculus or mass Is seen. Ureters are of normal course and caliber with no stone. No bladder mass or stone is present. Prostate and seminal vesicles appear normal. There is no aneurysm. No adenopathy is present. No bowel mass or obstruction is present. The appendix is normal. No phlegmon, or pneumoperitoneum is visualized. There is trace ascites. Noted is a right inguinal hernia containing nonobstructed small bowel. The osseous structures are intact. IMPRESSION: No evidence of urolithiasis, obstructive uropathy, diverticulitis or savannah endicitis. Cirrhotic liver. Post cholecystectomy. 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 Extensive upper abdominal and para esophageal varices. Splenomegaly with trace ascites consistent with portal hypertension. Right inguinal hernia containing nonobstructed small bowel. Elevated right hemidiaphragm. Atelectasis diaphragmatic aspect right middle lobe and right lower lobe. Vascular calcifications. .Richard Horvath MD, MD Date Time Electronically viewed and signed by .Richard Horvath MD, on 02/19/2019 17:25 .A/ [employer] DECISION [employer]KIN-year-old male history of hypertension, liver cirrhosis, esophageal varices status post ligation and GI bleed presents to the ED complaining of a 1 day history of abdominal pain. CBC reveals thromboc ytopenia consistent with prior results but no significant anemia or leukocytosis. Chemistry significant for hyperglycemia of 402 mg/dL but no electrolyte abnormalities, renal insufficiency LFTs significant for hyperbilirubinemia or anion gap acidosis. Bilirubin of 2.1 but no transaminitis. Lipase is not elevated or consistent with pancreatitis. Coagulopathy with elevated PT. Chest x-ray negative for pneumonia, congestive heart failure or pleural effusions. Abdominal ultrasound reveals no evidence of significant ascites. CT of the abdomen and pelvis to evaluate for an acute intra-abdominal process including bowel perforation, obstructive uropathy, appendicitis, abdominal aortic aneurysm, colitis and mesenteric ischemia reveals extensive varices, portal vein thrombosis with cavernous transformation and mild ascites but no acute process. Pain decreased with intravenous analgesics and antiemetics. Patient presents with abdominal pain of uncertain etiology. Admit to [facility] for further evaluation and management. PATIENT CARE TRANSITIONED: Time: 18:40, Dr. Brenna Velez. Counseled patient regarding diagnosis, diagnostic results and plan for admission. Departure Diagnosis: Primary Impression: Portal vein thrombosis Additional Impressions: Acute generalized abdominal pain Esophageal varices Esophageal varices type: unspecified type Esophageal varices bleeding: without bleeding Qualified Codes: I85.00 - Esophageal varices without bleeding Liver cirrhosis Hepatic cirrhosis type: alcoholic cirrhosis Ascites presence: with ascites Qualified Codes: K70.31 - Alcoholic cirrhosis of liver with ascites Thrombocytopenia Condition: Serious RICHI TAMEZ MD Feb 19, 2019 15:43
[2019-02-19] MEDS ORDERED: ONDANSETRON 4 MG INJ IV STA (15:56)
[2019-02-19] MEDS ORDERED: morphine 2 MG INJ IV STA (15:56)
[2019-02-19] MEDS ORDERED: SOD CHLORIDE 0.9% 100 ML ONE (16:40)
[2019-02-19] MEDS ORDERED: IOHEXOL 300MG/ML 150 ML BTL ONE (16:40)
[2019-02-19] MEDS ORDERED: SOD CHLORIDE 0.9% 790 ML IV ONE (17:00)
[2019-02-19] MEDS ORDERED: ONDANSETRON 4 MG INJ IV PRN ×2 (19:00→20:00)
[2019-02-19] MEDS ORDERED: ACETAMINOPHEN 325 MG TAB PO PRN ×2 (19:00→20:00)
[2019-02-19] MEDS ORDERED: NACL 0.9% 3 ML SYG IV SCH (20:00)
[2019-02-19] MEDS ORDERED: DEXTROSE 50% 50 ML SYRINGE IV PRN ×2 (20:00)
[2019-02-19] MEDS ORDERED: GLUCOSE GEL 15 GRAM TUBE PO PRN ×2 (20:00)
[2019-02-19] MEDS ORDERED: GLUCOSE GEL 15 GRAM TUBE BUCCAL PRN (20:00)
[2019-02-19] MEDS ORDERED: GLUCAGON 1 MG INJ IM PRN (20:00)
[2019-02-19 21:55] VITALS: Ht 170.2 cm; Wt 82.0 kg
[2019-02-19 22:00] VITALS: BP 145/70; PULSE 71; RESP 18
[2019-02-19] MEDS: morphine 2 MG INJ IV PRN (22:18)
[2019-02-19] MEDS: FAMOTIDINE 20 MG INJ IV SCH (22:44)
[2019-02-20] VITALS (7 sets, daily range): BP systolic 115–142; BP diastolic 64–77; PULSE 69–74; RESP 15–18
[2019-02-20] MEDS: ACCU-CHEK XX SCH (02:00)
[2019-02-20] MEDS: INSULIN ASPART [NOVOLOG] 3 ML PEN SC SCH ×3 (08:43→17:55)
[2019-02-20] MEDS ORDERED: ENOXAPARIN 30 MG/0.3 ML SYG SC SCH (09:00)
[2019-02-20] MEDS: morphine 2 MG INJ IV PRN ×2 (09:02→14:54)
[2019-02-20] MEDS: FAMOTIDINE 20 MG INJ IV SCH ×2 (09:04→21:16)
--- NOTE | 2019-02-20 16:18 | HP ---
Date/Time of Note Date/Time of Note DATE: 02/20/19 TIME: 16:03 Assessment/Plan VTE Prophylaxis Risk score (from [facility] [place]0 risk: 2 SCD applied (from [facility] [place]): Yes Pharmacological prophylaxis: NA/contraindicated Pharm contraindication: liver dx Lines/Catheters IV Catheter Type (from [facility]): Peripheral IV Assessment/Plan Assessment/Plan -Alcoholic liver cirrhosis with ascites, continue atenolol Lasix and spironolactone. Dr. Hernandez is asked to see patient in gastroenterology consultation. -Ascites, will order paracentesis. -Portal hypertension -History of esophageal varices -Anemia, rule out GI bleed, will obtain stool for OB, continue to monitor H&H. Further recommendations based on clinical course. Plan of care discussed with Dr. Cai. Result Diagram: 02/20/19 0551 02/20/19 0551 Results 24hrs Laboratory Tests Test 02/19/19 17:12 02/19/19 22:13 02/20/19 02:14 02/20/19 05:51 Bedside Glucose 334 H 171 127 White Blood Count 4.4 #L Red Blood Count 3.84 L Hemoglobin 11.1 L Hematocrit 34.6 L Mean Corpuscular 90.1 Volume Mean Corpuscular 28.9 L Hemoglobin Mean Corpuscular 32.1 Hemoglobin Concent Red Cell 14.5 Distribution Width Platelet Count 30 L Mean Platelet Volume 13.5 H Immature 0.500 H Granulocytes % Neutrophils % 74.9 Lymphocytes % 16.2 Monocytes % 6.4 Eosinophils % 1.8 Basophils % 0.2 Nucleated Red Blood 0.0 Cells % Immature 0.020 Granulocytes # Neutrophils # 3.3 Lymphocytes # 0.7 L Monocytes # 0.3 Eosinophils # 0.1 Basophils # 0.0 Nucleated Red Blood 0.0 Cells # Sodium Level 139 Potassium Level 3.7 Chloride Level 110 Carbon Dioxide Level 22 Anion Gap 7 Blood Urea Nitrogen 14 Creatinine 0.71 Est Glomerular > 60 Filtrat Rate mL/min Glucose Level 152 # Hemoglobin A1c 5.8 Calcium Level 7.9 L Total Bilirubin 2.2 H Direct Bilirubin 0.00 Indirect Bilirubin 2.2 H Aspartate Amino 23 Transf (AST/SGOT) Alanine 38 Aminotransferase (AL T/SGPT) Alkaline Phosphatase 47 Total Protein 5.7 #L Albumin 2.7 L Globulin 3.00 Albumin/Globulin 0.90 Ratio Test 02/20/19 08:01 02/20/19 11:52 Bedside Glucose 230 H 150 HPI/ROS Admit Date/Time Admit Date/Time Feb 19, 2019 at 18:50 Hx of Present Illness The patient is a 63-year-old gentleman with history of alcoholic liver cirrhosis, hypertension history of esophageal varices status post ligation 4 years ago. Patient presented to emergency room with complaints of significant abdominal pain patient developed on Wednesday and one episode of nonbloody emesis. Patient denies any fever, chills, denies any chest pain denies shortness of breath denies any bilateral lower extremity swelling. 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 Patient stated he has been compliant with his medication. Patient denies hematemesis, denies melena , denies hematochezia. Patient is admitted for further evaluation and management. ROS 12 point review of system is negative except for that mentioned in HPI PMH/Family/Social Past Medical History Medical History: hypertension, other (Alcoholic liver cirrhosis) Medications Current Medications IV Flush (NS 3 ml) 3 ml PER PROTOCOL IV ; Start 02/19/19 at 20:00 Ondansetron HCl (Zofran Inj) 4 mg Q6H PRN IV NAUSEA/VOMITING Last administered on 02/20/19at 09:02; Admin Dose 4 MG; Start 02/19/19 at 20:00 Acetaminophen (Tylenol Tab) 650 mg Q6H PRN PO .PAIN 1-3 OR TEMP; Start 02/19/19 at 20:00 Morphine Sulfate (morphine) 2 mg Q4H PRN IV .SEVERE PAIN 7-10 Last administered on 02/20/19at 14:54; Admin Dose 2 MG; Start 02/19/19 at 20:00 Famotidine (Pepcid Iv) 20 mg Q12 IV Last administered on 02/20/19at 09:04; Admin Dose 20 MG; Start 02/19/19 at 21:00 Enoxaparin Sodium (Lovenox) 30 mg DAILY SC ; Start 02/20/19 at 09:00 Diagnostic Test (Pha) (Accu-Chek) 1 ea 02 XX ; Start 02/20/19 at 02:00 Insulin Aspart (Novolog Insulin Pen) 5 unit WITH MEALS SC Last administered on 02/20/19at 12:07; Admin Dose 5 UNIT; Start 02/20/19 at 07:55 Miscellaneous Information 1 ea NOTE XX ; Start 02/19/19 at 20:00 Glucose (Glutose) 15 gm Q15M PRN PO DECREASED GLUCOSE; Start 02/19/19 at 20:00 Glucose (Glutose) 22.5 gm Q15M PRN PO DECREASED GLUCOSE; Start 02/19/19 at 20:00 Dextrose (D50w Syringe) 25 ml Q15M PRN IV DECREASED GLUCOSE; Start 02/19/19 at 20:00 Dextrose (D50w Syringe) 50 ml Q15M PRN IV DECREASED GLUCOSE; Start 02/19/19 at 20:00 Glucagon (Glucagen) 1 mg Q15M PRN IM DECREASED GLUCOSE; Start 02/19/19 at 20:00 Glucose (Glutose) 15 gm Q15M PRN BUCCAL DECREASED GLUCOSE; Start 02/19/19 at 20:00 Coded Allergies: Penicillins (Verified Allergy, Unknown, rash, 02/19/19) Past Surgical History Past Surgical Hx: cholecystectomy Family History Significant Family History: no pertinent family hx Social History Alcohol Use: other (Former arc of alcohol drinker) Smoking Status: Never smoker Drug Use: none Exam/Review of Systems Vital Signs Vitals Vital Signs Date Temp Pulse Resp B/P (MAP) Pulse Ox O2 O2 Flow FiO2 Time Delivery Rate 02/20/19 98.2 69 18 142/77 96 15:45 (98) 02/19/19 Room Air 22:00 Intake and Output 02/19/19 02/19/19 02/20/19 1515:00 23:00 07:00 OutputOutput Total 300 ml BalanceBalance -300 ml Exam Constitutional: alert, oriented Head: normocephalic Neck: supple Respiratory: clear to auscultation Cardiovascular: regular rate and rhythm Gastrointestinal: soft, distended, tender Musculoskeletal: nl extremities to inspection Extremities: normal pulses Neurological: nl mental status Skin: nl BRENNA Holguin Feb 20, 2019 16:13
[2019-02-20] MEDS: SPIRONOLACTONE 50 MG TAB PO SCH (18:00)
[2019-02-20] MEDS: FUROSEMIDE 20 MG TAB PO SCH (18:00)
[2019-02-20] MEDS: SUCRALFATE 1 GM TAB PO SCH ×2 (18:00→21:16)
[2019-02-21] MEDS: ACCU-CHEK XX SCH (02:00)
[2019-02-21 04:00] VITALS: BP 116/58; PULSE 63; RESP 19
[2019-02-21 07:26] VITALS: BP 146/77; PULSE 62; RESP 17
[2019-02-21] MEDS: FAMOTIDINE 20 MG INJ IV SCH ×2 (08:52→20:35)
[2019-02-21] MEDS: morphine 2 MG INJ IV PRN ×3 (08:52→18:13)
[2019-02-21] MEDS: SPIRONOLACTONE 50 MG TAB PO SCH (08:53)
[2019-02-21] MEDS: ATENOLOL 25 MG TAB PO SCH (08:53)
[2019-02-21] MEDS: SUCRALFATE 1 GM TAB PO SCH ×4 (08:53→20:34)
[2019-02-21] MEDS: FUROSEMIDE 20 MG TAB PO SCH (08:54)
[2019-02-21] MEDS: INSULIN ASPART [NOVOLOG] 3 ML PEN SC SCH ×3 (09:00→17:46)
[2019-02-21] MEDS: PANTOPRAZOLE (EC) 40 MG TAB PO SCH (09:11)
[2019-02-21 11:11] VITALS: BP 116/67; PULSE 56; RESP 16
--- NOTE | 2019-02-21 11:57 | CONS ---
Assessment/Plan Assessment/Plan Hospital Course (Demo Recall) 63 yo male 1. Portal vein thrombosis 2. Alcoholic Liver cirrhosis with portal htn 3. Extensive esophageal varices seen on Ct 4. Anemia, mild -anemia work up 5. Rt inguinal hernia containing non obstructed small bowel. CT abd: No evidence of urolithiasis, obstructive uropathy, diverticulitis or appendicitis. Cirrhotic liver. Post cholecystectomy. 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 Extensive upper abdominal and para esophageal varices. Splenomegaly with trace ascites consistent with portal hypertension. Right inguinal hernia containing nonobstructed small bowel. Elevated right hemidiaphragm. Atelectasis diaphragmatic aspect right middle lobe and right lower lobe. Vascular calcifications. Plan: Vascular surgery consult and anti coagulants for thrombosis AFP, ammonia, anemia work up Continue beta willie, and diuretics PPI Monitor HH and for active GI bleeding Pt examined and plan of care d/w Dr Hernandez Consultation Date/Type/Reason Admit Date/Time Feb 19, 2019 at 18:50 Date/Time of Note DATE: 02/21/19 TIME: 11:35 Hx of Present Illness 63 yo male with alcoholic liver cirrhosis, htn, esophageal varices presented to ER with c/o abdominal pain with one episode of emesis. Pt began having worsening abdominal pain on Wednesday. He vomited once, no coffee ground or hematemesis. BM this am, brown in color, soft. No signs of GI bleeding. Pt states he has not had any issues with ascites for many years. States abd pain is better but now in other areas of his body and abdomen. Denies fevers or chills. Denies dizziness and SOB. Does c/o waking at night due to snoring and he needs to take a deep breath. HH 11.6/34.6. PLatelets 31. Lfts wnl. WBC wnl. Past Medical History Medical History: hypertension, other (Alcoholic liver cirrhosis) Home Meds Reported Medications Sucralfate* (Carafate*) 1 Gm Tab, 1 GM PO AC MEALS AND BEDTIME, TAB 02/19/19 Spironolactone* (Aldactone*) 50 Mg Tablet, 50 MG PO DAILY, #30 TAB 02/19/19 Pantoprazole* (Pantoprazole*) 40 Mg Tablet., 40 MG PO AC BREAKFAST, TAB 02/19/19 Multivitamins* (Theragran*) 1 Tab Tab, 1 TAB PO DAILY, TAB 02/19/19 Furosemide* (Furosemide*) 20 Mg Tablet, 20 MG PO DAILY, #60 TAB 02/19/19 Atenolol* (Atenolol*) 25 Mg Tablet, 25 MG PO DAILY, #30 TAB 02/19/19 Hydrocodone/Acetaminophen ([place] 5-325 Tablet) 1 Each Tablet, 1 EACH PO Q4H WHILE AWAKE, TAB 02/19/19 Discontinued Reported Medications Omeprazole* (Omeprazole*) 20 Mg Capsule.dr, 20 MG PO DAILY, #30 CAP 10/01/15 Propranolol Hcl* (Propranolol Hcl*) 10 Mg Tablet, 10 MG PO BID, TAB 10/01/15 Ferrous Sulfate (Iron) 325 Mg Capsr, 325 MG PO BID 11/05/14 Discontinued Scripts Dextromethorphan Hb-Promethazine Hcl* (Promethazine DM* Syrup) 473 Ml Syrup, 5 ML PO Q6 PRN for COUGH for 5 Days, ML Prov:MARIOLA HEATH MD 09/03/18 Azithromycin* (Zithromax*) 250 Mg Tablet, 250 MG PO .[place]andyPAKATIA DIRECTED, #6 TAB TAKE 500 MG (2 TABS) THE FIRST DAY THEN 250 MG (1 TAB) DAYS 2-5 Prov:MARIOLA HEATH MD 09/03/18 Hydrocodone/Acetaminophen ([place] 5-325 Tablet) 1 Each Tablet, 1 TAB PO Q6H PRN for PAIN, #20 TAB Prov:ARMEN JEONG DO 02/19/17 Azithromycin* (Zithromax*) 250 Mg Tablet, 250 MG PO .[place]ATIA DIRECTED, #6 TAB TAKE 500 MG (2 TABS) THE FIRST DAY THEN 250 MG (1 TAB) DAYS 2-5 Prov:MODE FRIAS PA-C 09/16/16 Polymyxin B Sulfate-TMP* (Polymyxin B-TMP Eye Drops*) 10 Ml Drops, 1 DROP BOTH EYES QID for 7 Days, EA Prov:MODE FRIAS PA-C 09/16/16 Tramadol HCl (Tramadol HCl) 50 Mg Tablet, 50 MG PO Q4 PRN for PAIN, #15 TAB Prov:MODE FRIAS PA-C 09/16/16 Ranitidine Hcl* (Zantac*) 150 Mg Tablet, 150 MG PO BID PRN for EPIGASTRIC PAIN, #30 TAB Prov:MODE ALVES 05/18/16 Sucralfate* (Carafate*) 1 Gm Tab, 1 GM PO QID, #30 TAB Prov:ALEMOPALMODE Thelma 05/18/16 Peg 3350/Na Sulf,Bicarb,Cl/KCl (Golytely Packet) 1 Each Powd.pack, 1 EACH PO DAILY for CONSTIPATION, #1 Prov:ANGIE PATEL MD 04/24/16 Ondansetron Hcl* (Zofran*) 4 Mg Tablet, 4 MG PO TID, #30 TAB Prov:ANGIE PATEL MD 04/24/16 Hydrocodone/Acetaminophen ([place] 5-325 Tablet) 1 Each Tablet, 1 TAB PO TID PRN for PAIN, #12 TAB Prov:ANGIE PATEL MD 04/24/16 Medications Current Medications IV Flush (NS 3 ml) 3 ml PER PROTOCOL IV ; Start 02/19/19 at 20:00 Ondansetron HCl (Zofran Inj) 4 mg Q6H PRN IV NAUSEA/VOMITING Last administered on 02/20/19at 09:02; Admin Dose 4 MG; Start 02/19/19 at 20:00 Acetaminophen (Tylenol Tab) 650 mg Q6H PRN PO .PAIN 1-3 OR TEMP; Start 02/19/19 at 20:00 Morphine Sulfate (morphine) 2 mg Q4H PRN IV .SEVERE PAIN 7-10 Last administered on 02/21/19at 08:52; Admin Dose 2 MG; Start 02/19/19 at 20:00 Famotidine (Pepcid Iv) 20 mg Q12 IV Last administered on 02/21/19at 08:52; Admin Dose 20 MG; Start 02/19/19 at 21:00 Diagnostic Test (Pha) (Accu-Chek) 1 ea 02 XX ; Start 02/20/19 at 02:00 Insulin Aspart (Novolog Insulin Pen) 5 unit WITH MEALS SC Last administered on 02/21/19at 09:00; Admin Dose 5 UNIT; Start 02/20/19 at 07:55 Miscellaneous Information 1 ea NOTE XX ; Start 02/19/19 at 20:00 Glucose (Glutose) 15 gm Q15M PRN PO DECREASED GLUCOSE; Start 02/19/19 at 20:00 Glucose (Glutose) 22.5 gm Q15M PRN PO DECREASED GLUCOSE; Start 02/19/19 at 20:00 Dextrose (D50w Syringe) 25 ml Q15M PRN IV DECREASED GLUCOSE; Start 02/19/19 at 20:00 Dextrose (D50w Syringe) 50 ml Q15M PRN IV DECREASED GLUCOSE; Start 02/19/19 at 20:00 Glucagon (Glucagen) 1 mg Q15M PRN IM DECREASED GLUCOSE; Start 02/19/19 at 20:00 Glucose (Glutose) 15 gm Q15M PRN BUCCAL DECREASED GLUCOSE; Start 02/19/19 at 20:00 Atenolol (Tenormin) 25 mg DAILY PO Last administered on 02/21/19at 08:53; Admin Dose 25 MG; Start 02/21/19 at 09:00 Furosemide (Lasix) 20 mg DAILY PO Last administered on 02/21/19at 08:54; Admin Dose 20 MG; Start 02/20/19 at 16:30 Acetaminophen/ Hydrocodone Bitart ([place] (5/325)) 1 tab Q4H WHILE AWAKE PRN PO PAIN LEVEL 6-10; Start 02/20/19 at 16:30 Pantoprazole (Protonix Tab) 40 mg AC BREAKFAST PO Last administered on 02/21/19at 09:11; Admin Dose 40 MG; Start 02/21/19 at 07:25 Spironolactone (Aldactone) 50 mg DAILY PO Last administered on 02/21/19at 08:53; Admin Dose 50 MG; Start 02/20/19 at 16:30 Sucralfate (Carafate) 1 gm AC MEALS AND BEDTIME PO Last administered on 02/21/19at 11:29; Admin Dose 1 GM; Start 02/20/19 at 17:25 Allergies: Coded Allergies: Penicillins (Verified Allergy, Unknown, rash, 02/19/19) Past Surgical History Past Surgical Hx: cholecystectomy Social History Alcohol Use: other (Former arc of alcohol drinker) Smoking Status: Never smoker Drug Use: none Exam/Review of Systems Exam Vitals Vital Signs Date Temp Pulse Resp B/P (MAP) Pulse Ox O2 O2 Flow FiO2 Time Delivery Rate 02/21/19 97.5 56 16 116/67 98 11:11 (83) 02/19/19 Room Air 22:00 Intake and Output 02/20/19 02/20/19 02/21/19 1515:00 23:00 07:00 IntakeIntake Total 800 ml OutputOutput Total 250 ml 450 ml BalanceBalance -250 ml -450 ml 800 ml Constitutional: alert, oriented, well developed Psych: no complaints Head: normocephalic Eyes: PERRL Respiratory: clear to auscultation, normal air movement Cardiovascular: regular rate and rhythm Gastrointestinal: soft, bowel sounds, tender Musculoskeletal: nl extremities to inspection Extremities: edema (mild pitting edema in BLE) Neurological: nl mental status, nl speech Results Result Diagram: 02/21/19 0554 02/21/19 0554 Results 24hrs Laboratory Tests Test 02/20/19 11:52 02/20/19 17:52 02/21/19 05:54 02/21/19 11:26 Bedside Glucose 150 128 185 White Blood Count 2.7 #L Red Blood Count 3.86 L Hemoglobin 11.6 L Hematocrit 34.6 L Mean Corpuscular 89.6 Volume Mean Corpuscular 30.1 Hemoglobin Mean Corpuscular 33.5 Hemoglobin Concent Red Cell 13.9 Distribution Width Platelet Count 31 L Mean Platelet Volume 12.2 H Immature 0.400 Granulocytes % Neutrophils % 64.6 Lymphocytes % 22.6 Monocytes % 6.9 Eosinophils % 5.1 Basophils % 0.4 Nucleated Red Blood 0.0 Cells % Immature 0.010 Granulocytes # Neutrophils # 1.8 Lymphocytes # 0.6 L Monocytes # 0.2 L Eosinophils # 0.1 Basophils # 0.0 Nucleated Red Blood 0.0 Cells # Prothrombin Time 16.6 H Prothrombin Time 1.3 Ratio INR International 1.33 Normalized Ratio Activated 35.7 H Partial Thromboplast Time Thrombin Time 14.7 Sodium Level 136 Potassium Level 3.6 Chloride Level 107 Carbon Dioxide Level 22 Anion Gap 7 Blood Urea Nitrogen 12 Creatinine 0.74 Est Glomerular > 60 Filtrat Rate mL/min Glucose Level 179 Calcium Level 8.2 L Total Bilirubin 1.1 Direct Bilirubin 0.00 Indirect Bilirubin 1.1 Aspartate Amino 23 Transf (AST/SGOT) Alanine 40 Aminotransferase (AL T/SGPT) Alkaline Phosphatase 50 Total Protein 5.8 L Albumin 2.7 L Globulin 3.10 Albumin/Globulin 0.87 Ratio Medications Medication Current Medications IV Flush (NS 3 ml) 3 ml PER PROTOCOL IV ; Start 02/19/19 at 20:00 Ondansetron HCl (Zofran Inj) 4 mg Q6H PRN IV NAUSEA/VOMITING Last administered on 02/20/19at 09:02; Admin Dose 4 MG; Start 02/19/19 at 20:00 Acetaminophen (Tylenol Tab) 650 mg Q6H PRN PO .PAIN 1-3 OR TEMP; Start 02/19/19 at 20:00 Morphine Sulfate (morphine) 2 mg Q4H PRN IV .SEVERE PAIN 7-10 Last administered on 02/21/19at 08:52; Admin Dose 2 MG; Start 02/19/19 at 20:00 Famotidine (Pepcid Iv) 20 mg Q12 IV Last administered on 02/21/19at 08:52; Admin Dose 20 MG; Start 02/19/19 at 21:00 Diagnostic Test (Pha) (Accu-Chek) 1 ea 02 XX ; Start 02/20/19 at 02:00 Insulin Aspart (Novolog Insulin Pen) 5 unit WITH MEALS SC Last administered on 02/21/19at 09:00; Admin Dose 5 UNIT; Start 02/20/19 at 07:55 Miscellaneous Information 1 ea NOTE XX ; Start 02/19/19 at 20:00 Glucose (Glutose) 15 gm Q15M PRN PO DECREASED GLUCOSE; Start 02/19/19 at 20:00 Glucose (Glutose) 22.5 gm Q15M PRN PO DECREASED GLUCOSE; Start 02/19/19 at 20:00 Dextrose (D50w Syringe) 25 ml Q15M PRN IV DECREASED GLUCOSE; Start 02/19/19 at 20:00 Dextrose (D50w Syringe) 50 ml Q15M PRN IV DECREASED GLUCOSE; Start 02/19/19 at 20:00 Glucagon (Glucagen) 1 mg Q15M PRN IM DECREASED GLUCOSE; Start 02/19/19 at 20:00 Glucose (Glutose) 15 gm Q15M PRN BUCCAL DECREASED GLUCOSE; Start 02/19/19 at 20:00 Atenolol (Tenormin) 25 mg DAILY PO Last administered on 02/21/19at 08:53; Admin Dose 25 MG; Start 02/21/19 at 09:00 Furosemide (Lasix) 20 mg DAILY PO Last administered on 7/16/19at 08:54; Admin Dose 20 MG; Start 02/20/19 at 16:30 Acetaminophen/ Hydrocodone Bitart ([place] (5/325)) 1 tab Q4H WHILE AWAKE PRN PO PAIN LEVEL 6-10; Start 02/20/19 at 16:30 Pantoprazole (Protonix Tab) 40 mg AC BREAKFAST PO Last administered on 02/21/19 09:11; Admin Dose 40 MG; Start 02/21/19 at 07:25 Spironolactone (Aldactone) 50 mg DAILY PO Last administered on 02/21/19 08:53; Admin Dose 50 MG; Start 02/20/19 at 16:30 Sucralfate (Carafate) 1 gm AC MEALS AND BEDTIME PO Last administered on 02/21/19 11:29; Admin Dose 1 GM; Start 02/20/19 at 17:25 BLANCA ARRIOLA Feb 21, 2019 11:47
[2019-02-21 15:11] VITALS: BP 141/66; PULSE 61; RESP 17
[2019-02-21 19:44] VITALS: BP 127/69; PULSE 57; RESP 17
--- NOTE | 2019-02-21 20:15 | PN ---
Date/Time of Note Date/Time of Note DATE: 02/21/19 TIME: 20:07 Assessment/Plan VTE Prophylaxis Risk score (from Ns)>0 risk: 0 SCD applied (from Ns): Yes Pharmacological prophylaxis: NA/contraindicated Pharm contraindication: thrombocytopenia Lines/Catheters [facility] Peripheral IV Assessment/Plan Hospital Course Abdominal ultrasound is negative for ascites, patient complains of abdominal tenderness, continue current pain management. Assessment/Plan -Alcoholic liver cirrhosis, continue atenolol Lasix and spironolactone. Dr. Hernandez is following in gastroenterology consultation. -Portal vein thrombosis. Dr. Ornelas is asked to see patient in vascular surgery consultation. -Thrombocytopenia most likely secondary to liver cirrhosis -Portal hypertension -Esophageal varices -Anemia, rule out GI bleed, will obtain stool for OB, continue to monitor H&H. Further recommendations based on clinical course. Plan of care discussed with Dr. Cai. Result Diagram: 02/21/19 0554 02/21/19 0554 Results 24hrs Laboratory Tests Test 02/21/19 05:54 02/21/19 08:14 02/21/19 11:26 02/21/19 12:14 White Blood Count 2.7 #L Red Blood Count 3.86 L Hemoglobin 11.6 L Hematocrit 34.6 L Mean Corpuscular 89.6 Volume Mean Corpuscular 30.1 Hemoglobin Mean Corpuscular 33.5 Hemoglobin Concent Red Cell 13.9 Distribution Width Platelet Count 31 L Mean Platelet Volume 12.2 H Immature 0.400 Granulocytes % Neutrophils % 64.6 Lymphocytes % 22.6 Monocytes % 6.9 Eosinophils % 5.1 Basophils % 0.4 Nucleated Red Blood 0.0 Cells % Immature 0.010 Granulocytes # Neutrophils # 1.8 Lymphocytes # 0.6 L Monocytes # 0.2 L Eosinophils # 0.1 Basophils # 0.0 Nucleated Red Blood 0.0 Cells # Prothrombin Time 16.6 H Prothrombin Time 1.3 Ratio INR International 1.33 Normalized Ratio Activated 35.7 H Partial Thromboplast Time Thrombin Time 14.7 Sodium Level 136 Potassium Level 3.6 Chloride Level 107 Carbon Dioxide Level 22 Anion Gap 7 Blood Urea Nitrogen 12 Creatinine 0.74 Est Glomerular > 60 Filtrat Rate mL/min Glucose Level 179 Calcium Level 8.2 L Total Bilirubin 1.1 Direct Bilirubin 0.00 Indirect Bilirubin 1.1 Aspartate Amino 23 Transf (AST/SGOT) Alanine 40 Aminotransferase (AL T/SGPT) Alkaline Phosphatase 50 Total Protein 5.8 L Albumin 2.7 L Globulin 3.10 Albumin/Globulin 0.87 Ratio Bedside Glucose 112 185 Absolute 0.055 Reticulocyte Count Percent Reticulocyte 1.4 Count Ferritin 76.5 Ammonia 54 #H Alpha Fetoprotein 1.63 Vitamin B12 Level 937 H Folate 12.7 Test 02/21/19 17:40 Bedside Glucose 128 Exam/Review of Systems Exam Vitals Vital Signs Date Temp Pulse Resp B/P (MAP) Pulse Ox O2 O2 Flow FiO2 Time Delivery Rate 02/21/19 98.6 57 17 127/69 97 19:44 (88) 02/19/19 Room Air 22:00 Intake and Output 02/20/19 02/20/19 02/21/19 1515:00 23:00 07:00 IntakeIntake Total 800 ml OutputOutput Total 250 ml 450 ml BalanceBalance -250 ml -450 ml 800 ml Exam Constitutional: alert, oriented Respiratory: clear to auscultation Cardiovascular: regular rate and rhythm Gastrointestinal: soft, distended, tender Musculoskeletal: nl extremities to inspection Extremities: normal pulses Neurological: nl mental status Skin: nl turgor Results Results 24hrs Laboratory Tests Test 02/21/19 05:54 02/21/19 08:14 02/21/19 11:26 02/21/19 12:14 White Blood Count 2.7 #L Red Blood Count 3.86 L Hemoglobin 11.6 L Hematocrit 34.6 L Mean Corpuscular 89.6 Volume Mean Corpuscular 30.1 Hemoglobin Mean Corpuscular 33.5 Hemoglobin Concent Red Cell 13.9 Distribution Width Platelet Count 31 L Mean Platelet Volume 12.2 H Immature 0.400 Granulocytes % Neutrophils % 64.6 Lymphocytes % 22.6 Monocytes % 6.9 Eosinophils % 5.1 Basophils % 0.4 Nucleated Red Blood 0.0 Cells % Immature 0.010 Granulocytes # Neutrophils # 1.8 Lymphocytes # 0.6 L Monocytes # 0.2 L Eosinophils # 0.1 Basophils # 0.0 Nucleated Red Blood 0.0 Cells # Prothrombin Time 16.6 H Prothrombin Time 1.3 Ratio INR International 1.33 Normalized Ratio Activated 35.7 H Partial Thromboplast Time Thrombin Time 14.7 Sodium Level 136 Potassium Level 3.6 Chloride Level 107 Carbon Dioxide Level 22 Anion Gap 7 Blood Urea Nitrogen 12 Creatinine 0.74 Est Glomerular > 60 Filtrat Rate mL/min Glucose Level 179 Calcium Level 8.2 L Total Bilirubin 1.1 Direct Bilirubin 0.00 Indirect Bilirubin 1.1 Aspartate Amino 23 Transf (AST/SGOT) Alanine 40 Aminotransferase (AL T/SGPT) Alkaline Phosphatase 50 Total Protein 5.8 L Albumin 2.7 L Globulin 3.10 Albumin/Globulin 0.87 Ratio Bedside Glucose 112 185 Absolute 0.055 Reticulocyte Count Percent Reticulocyte 1.4 Count Ferritin 76.5 Ammonia 54 #H Alpha Fetoprotein 1.63 Vitamin B12 Level 937 H Folate 12.7 Test 02/21/19 17:40 Bedside Glucose 128 Medications Medication Current Medications IV Flush (NS 3 ml) 3 ml PER PROTOCOL IV ; Start 02/19/19 at 20:00 Ondansetron HCl (Zofran Inj) 4 mg Q6H PRN IV NAUSEA/VOMITING Last administered on 02/20/19at 09:02; Admin Dose 4 MG; Start 02/19/19 at 20:00 Acetaminophen (Tylenol Tab) 650 mg Q6H PRN PO .PAIN 1-3 OR TEMP; Start 02/19/19 at 20:00 Morphine Sulfate (morphine) 2 mg Q4H PRN IV .SEVERE PAIN 7-10 Last administered on 02/21/19at 18:13; Admin Dose 2 MG; Start 02/19/19 at 20:00 Famotidine (Pepcid Iv) 20 mg Q12 IV Last administered on 02/21/19at 08:52; Admin Dose 20 MG; Start 02/19/19 at 21:00 Diagnostic Test (Pha) (Accu-Chek) 1 ea 02 XX ; Start 02/20/19 at 02:00 Insulin Aspart (Novolog Insulin Pen) 5 unit WITH MEALS SC Last administered on 02/21/19at 17:46; Admin Dose 5 UNIT; Start 02/20/19 at 07:55 Miscellaneous Information 1 ea NOTE XX ; Start 02/19/19 at 20:00 Glucose (Glutose) 15 gm Q15M PRN PO DECREASED GLUCOSE; Start 02/19/19 at 20:00 Glucose (Glutose) 22.5 gm Q15M PRN PO DECREASED GLUCOSE; Start 02/19/19 at 20:00 Dextrose (D50w Syringe) 25 ml Q15M PRN IV DECREASED GLUCOSE; Start 02/19/19 at 20:00 Dextrose (D50w Syringe) 50 ml Q15M PRN IV DECREASED GLUCOSE; Start 02/19/19 at 20:00 Glucagon (Glucagen) 1 mg Q15M PRN IM DECREASED GLUCOSE; Start 02/19/19 at 20:00 Glucose (Glutose) 15 gm Q15M PRN BUCCAL DECREASED GLUCOSE; Start 02/19/19 at 20:00 Atenolol (Tenormin) 25 mg DAILY PO Last administered on 02/21/19at 08:53; Admin Dose 25 MG; Start 02/21/19 at 09:00 Furosemide (Lasix) 20 mg DAILY PO Last administered on 02/21/19at 08:54; Admin Dose 20 MG; Start 02/20/19 at 16:30 Acetaminophen/ Hydrocodone Bitart ([place] (5/325)) 1 tab Q4H WHILE AWAKE PRN PO PAIN LEVEL 6-10; Start 02/20/19 at 16:30 Pantoprazole (Protonix Tab) 40 mg AC BREAKFAST PO Last administered on 02/21/19at 09:11; Admin Dose 40 MG; Start 02/21/19 at 07:25 Spironolactone (Aldactone) 50 mg DAILY PO Last administered on 02/21/19 08:53; Admin Dose 50 MG; Start 02/20/19 at 16:30 Sucralfate (Carafate) 1 gm AC MEALS AND BEDTIME PO Last administered on 02/21/19at 17:49; Admin Dose 1 GM; Start 02/20/19 at 17:25 BRENNA SPEARS Feb 21, 2019 20:15
[2019-02-21 23:50] VITALS: BP 123/69; PULSE 59; RESP 17
[2019-02-22] MEDS: ACCU-CHEK XX SCH (02:00)
[2019-02-22 03:21] VITALS: BP 136/63; PULSE 60; RESP 17
[2019-02-22] MEDS: PANTOPRAZOLE (EC) 40 MG TAB PO SCH (06:10)
[2019-02-22] MEDS: SUCRALFATE 1 GM TAB PO SCH ×2 (06:10→11:32)
[2019-02-22 07:15] VITALS: BP 116/65; RESP 19
[2019-02-22] MEDS: morphine 2 MG INJ IV PRN (07:52)
[2019-02-22] MEDS: INSULIN ASPART [NOVOLOG] 3 ML PEN SC SCH ×3 (08:02→18:19)
[2019-02-22] MEDS: SPIRONOLACTONE 50 MG TAB PO SCH (09:01)
[2019-02-22] MEDS: FAMOTIDINE 20 MG INJ IV SCH (09:01)
[2019-02-22] MEDS: FUROSEMIDE 20 MG TAB PO SCH (09:01)
[2019-02-22] MEDS: ATENOLOL 25 MG TAB PO SCH (09:02)
[2019-02-22 11:27] VITALS: BP 130/63; PULSE 61; RESP 20
[2019-02-22] MEDS: HYDROCODONE/APAP (5/325) TAB PO PRN ×2 (11:35→18:10)
--- NOTE | 2019-02-22 12:51 | PN ---
Date/Time of Note Date/Time of Note DATE: 02/22/19 TIME: 12:50 Assessment/Plan VTE Prophylaxis Risk score (from Ns)>0 risk: 0 SCD applied (from [facility] [place]): Yes Pharmacological prophylaxis: NA/contraindicated Pharm contraindication: thrombocytopenia Lines/Catheters IV C[facility]ter Type (from [facility]): Peripheral IV Assessment/Plan Hospital Course Patient remains hemodynamically stable, is adequately controlled, pending vascular surgery evaluation and hematology. Assessment/Plan -Alcoholic liver cirrhosis, continue atenolol Lasix and spironolactone. Dr. Hernandez is following in gastroenterology consultation. -Portal vein thrombosis. Dr. Ornelas is asked to see patient in vascular surgery consultation. No anticoagulation due to thrombocytopenia. -Pancytopenia. Dr. Meier is asked to see patient in hematology consultation. -Portal hypertension -Esophageal varices -Anemia, rule out GI bleed, f/up on obtain stool for OB, continue to monitor H&H. Further recommendations based on clinical course. Plan of care discussed with Dr. Cai. Result Diagram: 02/22/1914 02/22/1914 Results 24hrs Laboratory Tests Test 02/21/19 17:40 02/22/19 02:51 02/22/19 06:14 02/22/19 07:54 Bedside Glucose 128 141 134 White Blood Count 2.8 L Red Blood Count 3.88 L Hemoglobin 11.5 L Hematocrit 33.7 L Mean Corpuscular 86.9 Volume Mean Corpuscular 29.6 Hemoglobin Mean Corpuscular 34.1 Hemoglobin Concent Red Cell 13.9 Distribution Width Platelet Count 41 #L Mean Platelet Volume 13.5 H Immature 0.400 Granulocytes % Neutrophils % 64.6 Lymphocytes % 21.8 Monocytes % 8.2 Eosinophils % 4.6 Basophils % 0.4 Nucleated Red Blood 0.0 Cells % Immature 0.010 Granulocytes # Neutrophils # 1.8 Lymphocytes # 0.6 L Monocytes # 0.2 L Eosinophils # 0.1 Basophils # 0.0 Nucleated Red Blood 0.0 Cells # Sodium Level 137 Potassium Level 4.1 Chloride Level 108 Carbon Dioxide Level 22 Anion Gap 7 Blood Urea Nitrogen 13 Creatinine 0.76 Est Glomerular > 60 Filtrat Rate mL/min Glucose Level 172 Calcium Level 8.4 Total Bilirubin 0.9 Direct Bilirubin 0.00 Indirect Bilirubin 0.9 Aspartate Amino 26 Transf (AST/SGOT) Alanine 33 Aminotransferase (AL T/SGPT) Alkaline Phosphatase 47 Total Protein 6.0 L Albumin 2.8 L Globulin 3.20 Albumin/Globulin 0.87 Ratio Test 02/22/19 11:31 Bedside Glucose 120 Exam/Review of Systems Exam Vitals Vital Signs Date Temp Pulse Resp B/P (MAP) Pulse Ox O2 O2 Flow FiO2 Time Delivery Rate 02/22/19 98.1 61 20 130/63 95 11:27 (85) 02/19/19 Room Air 22:00 Intake and Output 02/21/19 02/21/19 02/22/19 1515:00 23:00 07:00 IntakeIntake Total 600 ml 300 ml 800 ml OutputOutput Total 200 ml BalanceBalance 400 ml 300 ml 800 ml Exam Constitutional: alert, oriented Respiratory: clear to auscultation Cardiovascular: regular rate and rhythm Gastrointestinal: soft, distended, tender Musculoskeletal: nl extremities to inspection Extremities: normal pulses Neurological: nl mental status Skin: nl turgor Results Results 24hrs Laboratory Tests Test 02/21/19 17:40 02/22/19 02:51 02/22/19 06:14 02/22/19 07:54 Bedside Glucose 128 141 134 White Blood Count 2.8 L Red Blood Count 3.88 L Hemoglobin 11.5 L Hematocrit 33.7 L Mean Corpuscular 86.9 Volume Mean Corpuscular 29.6 Hemoglobin Mean Corpuscular 34.1 Hemoglobin Concent Red Cell 13.9 Distribution Width Platelet Count 41 #L Mean Platelet Volume 13.5 H Immature 0.400 Granulocytes % Neutrophils % 64.6 Lymphocytes % 21.8 Monocytes % 8.2 Eosinophils % 4.6 Basophils % 0.4 Nucleated Red Blood 0.0 Cells % Immature 0.010 Granulocytes # Neutrophils # 1.8 Lymphocytes # 0.6 L Monocytes # 0.2 L Eosinophils # 0.1 Basophils # 0.0 Nucleated Red Blood 0.0 Cells # Sodium Level 137 Potassium Level 4.1 Chloride Level 108 Carbon Dioxide Level 22 Anion Gap 7 Blood Urea Nitrogen 13 Creatinine 0.76 Est Glomerular > 60 Filtrat Rate mL/min Glucose Level 172 Calcium Level 8.4 Total Bilirubin 0.9 Direct Bilirubin 0.00 Indirect Bilirubin 0.9 Aspartate Amino 26 Transf (AST/SGOT) Alanine 33 Aminotransferase (AL T/SGPT) Alkaline Phosphatase 47 Total Protein 6.0 L Albumin 2.8 L Globulin 3.20 Albumin/Globulin 0.87 Ratio Test 02/22/19 11:31 Bedside Glucose 120 Medications Medication Current Medications IV Flush (NS 3 ml) 3 ml PER PROTOCOL IV ; Start 02/19/19 at 20:00 Ondansetron HCl (Zofran Inj) 4 mg Q6H PRN IV NAUSEA/VOMITING Last administered on 02/20/19at 09:02; Admin Dose 4 MG; Start 02/19/19 at 20:00 Acetaminophen (Tylenol Tab) 650 mg Q6H PRN PO .PAIN 1-3 OR TEMP; Start 02/19/19 at 20:00 Morphine Sulfate (morphine) 2 mg Q4H PRN IV .SEVERE PAIN 7-10 Last administered on 02/22/19at 07:52; Admin Dose 2 MG; Start 02/19/19 at 20:00 Famotidine (Pepcid Iv) 20 mg Q12 IV Last administered on 02/22/19at 09:01; Admin Dose 20 MG; Start 02/19/19 at 21:00 Diagnostic Test (Pha) (Accu-Chek) 1 ea 02 XX ; Start 02/20/19 at 02:00 Insulin Aspart (Novolog Insulin Pen) 5 unit WITH MEALS SC Last administered on 02/22/19at 12:30; Admin Dose 5 UNIT; Start 02/20/19 at 07:55 Miscellaneous Information 1 ea NOTE XX ; Start 02/19/19 at 20:00 Glucose (Glutose) 15 gm Q15M PRN PO DECREASED GLUCOSE; Start 02/19/19 at 20:00 Glucose (Glutose) 22.5 gm Q15M PRN PO DECREASED GLUCOSE; Start 02/19/19 at 20:00 Dextrose (D50w Syringe) 25 ml Q15M PRN IV DECREASED GLUCOSE; Start 02/19/19 at 20:00 Dextrose (D50w Syringe) 50 ml Q15M PRN IV DECREASED GLUCOSE; Start 02/19/19 at 20:00 Glucagon (Glucagen) 1 mg Q15M PRN IM DECREASED GLUCOSE; Start 02/19/19 at 20:00 Glucose (Glutose) 15 gm Q15M PRN BUCCAL DECREASED GLUCOSE; Start 02/19/19 at 20:00 Atenolol (Tenormin) 25 mg DAILY PO Last administered on 02/22/19at 09:02; Admin Dose 25 MG; Start 02/21/19 at 09:00 Furosemide (Lasix) 20 mg DAILY PO Last administered on 02/22/19 09:01; Admin Dose 20 MG; Start 02/20/19 at 16:30 Acetaminophen/ Hydrocodone Bitart ([place] (5/325)) 1 tab Q4H WHILE AWAKE PRN PO PAIN LEVEL 6-10 Last administered on 02/22/19 11:35; Admin Dose 1 TAB; Start 02/20/19 at 16:30 Pantoprazole (Protonix Tab) 40 mg AC BREAKFAST PO Last administered on 02/22/19 06:10; Admin Dose 40 MG; Start 02/21/19 at 07:25 Spironolactone (Aldactone) 50 mg DAILY PO Last administered on 02/22/19 09:01; Admin Dose 50 MG; Start 02/20/19 at 16:30 Sucralfate (Carafate) 1 gm AC MEALS AND BEDTIME PO Last administered on 02/22/19 11:32; Admin Dose 1 GM; Start 02/20/19 at 17:25 BRENNA SPEARS Feb 22, 2019 12:51
[2019-02-22 15:16] VITALS: BP 135/65; PULSE 59; RESP 20
--- NOTE | 2019-02-22 15:20 | CONS ---
Assessment/Plan Assessment/Plan Assessment/Plan (Daily) Hospital Course (Demo Recall) 63 yo male 1. Portal vein thrombosis 2. Alcoholic Liver cirrhosis with portal htn 3. Extensive esophageal varices seen on Ct 4. Anemia, mild -anemia work up 5. Rt inguinal hernia containing non obstructed small bowel. CT abd: No evidence of urolithiasis, obstructive uropathy, diverticulitis or appendicitis. Cirrhotic liver. Post cholecystectomy. 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 Extensive upper abdominal and para esophageal varices. Sp lenomegaly with trace ascites consistent with portal hypertension. Right inguinal hernia containing nonobstructed small bowel. Elevated right hemidiaphragm. Atelectasis diaphragmatic aspect right middle lobe and right lower lobe. Vascular calcifications. Plan: Vascular surgery consult and anti coagulants for thrombosis AFP, ammonia, anemia work up Continue beta willie, and diuretics. Patient needs nonselective beta-willie. Atenolol has been stopped and patient is started on Inderal PPI Monitor HH and for active GI bleeding Patient will require banding procedure he had banding done by me at [facility]. Consultation Date/Type/Reason Admit Date/Time Feb 19, 2019 at 18:50 Initial Consult Date Date/Time of Note DATE: 02/22/19 TIME: 15:18 24 HR Interval Summary Free Text/Dictation Complaints of abdominal pain Constitutional: improved Exam/Review of Systems Exam Vitals Vital Signs Date Temp Pulse Resp B/P (MAP) Pulse Ox O2 O2 Flow FiO2 Time Delivery Rate 02/22/19 98.7 59 20 135/65 99 15:16 (88) 02/19/19 Room Air 22:00 Intake and Output 02/21/19 02/21/19 02/22/19 1515:00 23:00 07:00 IntakeIntake Total 600 ml 300 ml 800 ml OutputOutput Total 200 ml BalanceBalance 400 ml 300 ml 800 ml Constitutional: alert, oriented Psych: no complaints Respiratory: congested cough Gastrointestinal: soft, nl liver, spleen, non-tender Musculoskeletal: nl extremities to inspection Results Result Diagram: 02/22/19 0614 02/22/19 0614 Results 24hrs Laboratory Tests Test 02/21/19 17:40 02/22/19 02:51 02/22/19 06:14 02/22/19 07:54 Bedside Glucose 128 141 134 White Blood Count 2.8 L Red Blood Count 3.88 L Hemoglobin 11.5 L Hematocrit 33.7 L Mean Corpuscular 86.9 Volume Mean Corpuscular 29.6 Hemoglobin Mean Corpuscular 34.1 Hemoglobin Concent Red Cell 13.9 Distribution Width Platelet Count 41 #L Mean Platelet Volume 13.5 H Immature 0.400 Granulocytes % Neutrophils % 64.6 Lymphocytes % 21.8 Monocytes % 8.2 Eosinophils % 4.6 Basophils % 0.4 Nucleated Red Blood 0.0 Cells % Immature 0.010 Granulocytes # Neutrophils # 1.8 Lymphocytes # 0.6 L Monocytes # 0.2 L Eosinophils # 0.1 Basophils # 0.0 Nucleated Red Blood 0.0 Cells # Sodium Level 137 Potassium Level 4.1 Chloride Level 108 Carbon Dioxide Level 22 Anion Gap 7 Blood Urea Nitrogen 13 Creatinine 0.76 Est Glomerular > 60 Filtrat Rate mL/min Glucose Level 172 Calcium Level 8.4 Total Bilirubin 0.9 Direct Bilirubin 0.00 Indirect Bilirubin 0.9 Aspartate Amino 26 Transf (AST/SGOT) Alanine 33 Aminotransferase (AL T/SGPT) Alkaline Phosphatase 47 Total Protein 6.0 L Albumin 2.8 L Globulin 3.20 Albumin/Globulin 0.87 Ratio Test 02/22/19 11:31 Bedside Glucose 120 Medications Medication Current Medications IV Flush (NS 3 ml) 3 ml PER PROTOCOL IV ; Start 02/19/19 at 20:00 Ondansetron HCl (Zofran Inj) 4 mg Q6H PRN IV NAUSEA/VOMITING Last administered on 02/20/19at 09:02; Admin Dose 4 MG; Start 02/19/19 at 20:00 Acetaminophen (Tylenol Tab) 650 mg Q6H PRN PO .PAIN 1-3 OR TEMP; Start 02/19/19 at 20:00 Morphine Sulfate (morphine) 2 mg Q4H PRN IV .SEVERE PAIN 7-10 Last administered on 02/22/19at 07:52; Admin Dose 2 MG; Start 02/19/19 at 20:00 Diagnostic Test (Pha) (Accu-Chek) 1 ea 02 XX ; Start 02/20/19 at 02:00 Insulin Aspart (Novolog Insulin Pen) 5 unit WITH MEALS SC Last administered on 02/22/19at 12:30; Admin Dose 5 UNIT; Start 02/20/19 at 07:55 Miscellaneous Information 1 ea NOTE XX ; Start 02/19/19 at 20:00 Glucose (Glutose) 15 gm Q15M PRN PO DECREASED GLUCOSE; Start 02/19/19 at 20:00 Glucose (Glutose) 22.5 gm Q15M PRN PO DECREASED GLUCOSE; Start 02/19/19 at 20:00 Dextrose (D50w Syringe) 25 ml Q15M PRN IV DECREASED GLUCOSE; Start 02/19/19 at 20:00 Dextrose (D50w Syringe) 50 ml Q15M PRN IV DECREASED GLUCOSE; Start 02/19/19 at 20:00 Glucagon (Glucagen) 1 mg Q15M PRN IM DECREASED GLUCOSE; Start 02/19/19 at 20:00 Glucose (Glutose) 15 gm Q15M PRN BUCCAL DECREASED GLUCOSE; Start 02/19/19 at 20:00 Furosemide (Lasix) 20 mg DAILY PO Last administered on 02/22/19at 09:01; Admin Dose 20 MG; Start 02/20/19 at 16:30 Acetaminophen/ Hydrocodone Bitart ([place] (5/325)) 1 tab Q4H WHILE AWAKE PRN PO PAIN LEVEL 6-10 Last administered on 02/22/19at 11:35; Admin Dose 1 TAB; Start 02/20/19 at 16:30 Pantoprazole (Protonix Tab) 40 mg AC BREAKFAST PO Last administered on 02/22/19at 06:10; Admin Dose 40 MG; Start 02/21/19 at 07:25 Spironolactone (Aldactone) 50 mg DAILY PO Last administered on 02/22/19at 09:01; Admin Dose 50 MG; Start 02/20/19 at 16:30 Propranolol HCl (Inderal) 20 mg BID PO ; Start 02/22/19 at 21:00; Status UNSOCO BERKOWITZ MD Feb 22, 2019 15:19
--- NOTE | 2019-02-22 15:33 | CONS ---
Assessment/Plan Assessment/Plan Hospital Course (Demo Recall) #Portal vein thrombosis - 2/2 ETOH Cirrhosis #Etoh cirrhosis #Thrombocytopenia #Esophageal varices -AT this time there is no indication for portal vein thrombosis. This is a chronic thrombosis secondary to long standing cirrhosis. Furthermore the patient has already developed collateral veins around this thrombosed vein. Also pt is severe thrombocytopenic and any anticoagulation could put him at increased risk for GI bleed. -continue current management for cirrhosis and varices Consultation Date/Type/Reason Admit Date/Time Feb 19, 2019 at 18:50 Date of Consultation: Feb 22, 2019 Type of Consult hematology Reason for Consultation portal vein thrombosis Requesting Provider: JACK ANNA MD Date/Time of Note DATE: 02/22/19 TIME: 15:28 Hx of Present Illness 63-year-old male with multiple medical problems including alcoholic liver cirrhosis, hypertension history of esophageal varices status post ligation 4 years ago. Patient presented with abdominal pain. CT of the abdomen which revealed cirrhotic liver, occluded main portal vein with cavernous transformation, extensive upper abdominal and paraesophageal varices, splenomegaly with trace of ascites consistent with portal hypertension, and the right inguinal hernia containing nonobstructed small bowel, no evidence of urolithiasis, obstructive uropathy, diverticulitis or appendicitis. We have been consulted for portal vein thrombosis Constitutional: no complaints, diaphoresis Eyes: no complaints ENT: no complaints Respiratory: no complaints Cardiovascular: lightheadedness Gastrointestinal: pain Genitourinary: no complaints Musculoskeletal: back pain, bone/joint pain Skin: no complaints Neurologic: no complaints Past Medical History Medical History: hypertension, other (Alcoholic liver cirrhosis) Home Meds Reported Medications Sucralfate* (Carafate*) 1 Gm Tab, 1 GM PO AC MEALS AND BEDTIME, TAB 02/19/19 Spironolactone* (Aldactone*) 50 Mg Tablet, 50 MG PO DAILY, #30 TAB 02/19/19 Pantoprazole* (Pantoprazole*) 40 Mg Tablet.dr, 40 MG PO AC BREAKFAST, TAB 02/19/19 Multivitamins* (Theragran*) 1 Tab Tab, 1 TAB PO DAILY, TAB 02/19/19 Furosemide* (Furosemide*) 20 Mg Tablet, 20 MG PO DAILY, #60 TAB 02/19/19 Atenolol* (Atenolol*) 25 Mg Tablet, 25 MG PO DAILY, #30 TAB 02/19/19 Hydrocodone/Acetaminophen ([place] 5-325 Tablet) 1 Each Tablet, 1 EACH PO Q4H WHILE AWAKE, TAB 02/19/19 Discontinued Reported Medications Omeprazole* (Omeprazole*) 20 Mg Capsule.dr, 20 MG PO DAILY, #30 CAP 10/01/15 Propranolol Hcl* (Propranolol Hcl*) 10 Mg Tablet, 10 MG PO BID, TAB 10/01/15 Ferrous Sulfate (Iron) 325 Mg Capsr, 325 MG PO BID 11/05/14 Discontinued Scripts Dextromethorphan Hb-Promethazine Hcl* (Promethazine DM* Syrup) 473 Ml Syrup, 5 ML PO Q6 PRN for COUGH for 5 Days, ML Prov:MARIOLA HEATH MD 09/03/18 Azithromycin* (Zithromax*) 250 Mg Tablet, 250 MG PO .ZPACK DIRECTED, #6 TAB TAKE 500 MG (2 TABS) THE FIRST DAY THEN 250 MG (1 TAB) DAYS 2-5 Prov:MARIOLA HEATH MD 09/03/18 Hydrocodone/Acetaminophen ([place] 5-325 Tablet) 1 Each Tablet, 1 TAB PO Q6H PRN for PAIN, #20 TAB Prov:ARMEN JEONG DO 02/19/17 Azithromycin* (Zithromax*) 250 Mg Tablet, 250 MG PO .ZPACK DIRECTED, #6 TAB TAKE 500 MG (2 TABS) THE FIRST DAY THEN 250 MG (1 TAB) DAYS 2-5 Prov:MODE FRIAS PA-C 09/16/16 Polymyxin B Sulfate-TMP* (Polymyxin B-TMP Eye Drops*) 10 Ml Drops, 1 DROP BOTH EYES QID for 7 Days, EA Prov:MODE FRIAS PA-C 09/16/16 Tramadol HCl (Tramadol HCl) 50 Mg Tablet, 50 MG PO Q4 PRN for PAIN, #15 TAB Prov:MODE FRIAS PA-C 09/16/16 Ranitidine Hcl* (Zantac*) 150 Mg Tablet, 150 MG PO BID PRN for EPIGASTRIC PAIN, #30 TAB Prov:MODE ALVES 05/18/16 Sucralfate* (Carafate*) 1 Gm Tab, 1 GM PO QID, #30 TAB Prov:MODE ALVES 05/18/16 Peg 3350/Na Sulf,Bicarb,Cl/KCl (Golytely Packet) 1 Each Powd.pack, 1 EACH PO DAILY for CONSTIPATION, #1 Prov:ANGIE PATEL MD 04/24/16 Ondansetron Hcl* (Zofran*) 4 Mg Tablet, 4 MG PO TID, #30 TAB Prov:ANGIE PATEL MD 04/24/16 Hydrocodone/Acetaminophen ([place] 5-325 Tablet) 1 Each Tablet, 1 TAB PO TID PRN for PAIN, #12 TAB Prov:ANGIE PATEL MD 04/24/16 Medications Current Medications IV Flush (NS 3 ml) 3 ml PER PROTOCOL IV ; Start 02/19/19 at 20:00 Ondansetron HCl (Zofran Inj) 4 mg Q6H PRN IV NAUSEA/VOMITING Last administered on 02/20/19at 09:02; Admin Dose 4 MG; Start 02/19/19 at 20:00 Acetaminophen (Tylenol Tab) 650 mg Q6H PRN PO .PAIN 1-3 OR TEMP; Start 02/19/19 at 20:00 Morphine Sulfate (morphine) 2 mg Q4H PRN IV .SEVERE PAIN 7-10 Last administered on 02/22/19at 07:52; Admin Dose 2 MG; Start 02/19/19 at 20:00 Diagnostic Test (Pha) (Accu-Chek) 1 ea 02 XX ; Start 02/20/19 at 02:00 Insulin Aspart (Novolog Insulin Pen) 5 unit WITH MEALS SC Last administered on 02/22/19at 12:30; Admin Dose 5 UNIT; Start 02/20/19 at 07:55 Miscellaneous Information 1 ea NOTE XX ; Start 02/19/19 at 20:00 Glucose (Glutose) 15 gm Q15M PRN PO DECREASED GLUCOSE; Start 02/19/19 at 20:00 Glucose (Glutose) 22.5 gm Q15M PRN PO DECREASED GLUCOSE; Start 02/19/19 at 20:00 Dextrose (D50w Syringe) 25 ml Q15M PRN IV DECREASED GLUCOSE; Start 02/19/19 at 20:00 Dextrose (D50w Syringe) 50 ml Q15M PRN IV DECREASED GLUCOSE; Start 02/19/19 at 20:00 Glucagon (Glucagen) 1 mg Q15M PRN IM DECREASED GLUCOSE; Start 02/19/19 at 20:00 Glucose (Glutose) 15 gm Q15M PRN BUCCAL DECREASED GLUCOSE; Start 02/19/19 at 20:00 Furosemide (Lasix) 20 mg DAILY PO Last administered on 02/22/19at 09:01; Admin Dose 20 MG; Start 02/20/19 at 16:30 Acetaminophen/ Hydrocodone Bitart ([place] (5/325)) 1 tab Q4H WHILE AWAKE PRN PO PAIN LEVEL 6-10 Last administered on 02/22/19at 11:35; Admin Dose 1 TAB; Start 02/20/19 at 16:30 Pantoprazole (Protonix Tab) 40 mg AC BREAKFAST PO Last administered on 02/22/19at 06:10; Admin Dose 40 MG; Start 02/21/19 at 07:25 Spironolactone (Aldactone) 50 mg DAILY PO Last administered on 02/22/19at 09:01; Admin Dose 50 MG; Start 02/20/19 at 16:30 Propranolol HCl (Inderal) 20 mg BID PO ; Start 02/22/19 at 21:00 Allergies: Coded Allergies: Penicillins (Verified Allergy, Unknown, rash, 02/19/19) Past Surgical History Past Surgical Hx: cholecystectomy Social History Alcohol Use: other (Former arc of alcohol drinker) Smoking Status: Never smoker Drug Use: none Exam/Review of Systems Exam Vitals Vital Signs Date Temp Pulse Resp B/P (MAP) Pulse Ox O2 O2 Flow FiO2 Time Delivery Rate 02/22/19 98.7 59 20 135/65 99 15:16 (88) 02/19/19 Room Air 22:00 Intake and Output 02/21/19 02/21/19 02/22/19 1515:00 23:00 07:00 IntakeIntake Total 600 ml 300 ml 800 ml OutputOutput Total 200 ml BalanceBalance 400 ml 300 ml 800 ml Constitutional: alert Psych: anxiety Head: normocephalic Eyes: nl conjunctiva ENMT: nl external ears & nose Neck: supple Respiratory: clear to auscultation Cardiovascular: regular rate and rhythm Gastrointestinal: soft Musculoskeletal: nl extremities to inspection Extremities: normal pulses Results Result Diagram: 7/17/19 0614 7/17/19 0614 Results 24hrs Laboratory Tests Test 02/21/19 17:40 02/22/19 02:51 02/22/19 06:14 02/22/19 07:54 Bedside Glucose 128 141 134 White Blood Count 2.8 L Red Blood Count 3.88 L Hemoglobin 11.5 L Hematocrit 33.7 L Mean Corpuscular 86.9 Volume Mean Corpuscular 29.6 Hemoglobin Mean Corpuscular 34.1 Hemoglobin Concent Red Cell 13.9 Distribution Width Platelet Count 41 #L Mean Platelet Volume 13.5 H Immature 0.400 Granulocytes % Neutrophils % 64.6 Lymphocytes % 21.8 Monocytes % 8.2 Eosinophils % 4.6 Basophils % 0.4 Nucleated Red Blood 0.0 Cells % Immature 0.010 Granulocytes # Neutrophils # 1.8 Lymphocytes # 0.6 L Monocytes # 0.2 L Eosinophils # 0.1 Basophils # 0.0 Nucleated Red Blood 0.0 Cells # Sodium Level 137 Potassium Level 4.1 Chloride Level 108 Carbon Dioxide Level 22 Anion Gap 7 Blood Urea Nitrogen 13 Creatinine 0.76 Est Glomerular > 60 Filtrat Rate mL/min Glucose Level 172 Calcium Level 8.4 Total Bilirubin 0.9 Direct Bilirubin 0.00 Indirect Bilirubin 0.9 Aspartate Amino 26 Transf (AST/SGOT) Alanine 33 Aminotransferase (AL T/SGPT) Alkaline Phosphatase 47 Total Protein 6.0 L Albumin 2.8 L Globulin 3.20 Albumin/Globulin 0.87 Ratio Test 02/22/19 11:31 Bedside Glucose 120 Medications Medication Current Medications IV Flush (NS 3 ml) 3 ml PER PROTOCOL IV ; Start 02/19/19 at 20:00 Ondansetron HCl (Zofran Inj) 4 mg Q6H PRN IV NAUSEA/VOMITING Last administered on 02/20/19at 09:02; Admin Dose 4 MG; Start 02/19/19 at 20:00 Acetaminophen (Tylenol Tab) 650 mg Q6H PRN PO .PAIN 1-3 OR TEMP; Start 02/19/19 at 20:00 Morphine Sulfate (morphine) 2 mg Q4H PRN IV .SEVERE PAIN 7-10 Last administered on 02/22/19at 07:52; Admin Dose 2 MG; Start 02/19/19 at 20:00 Diagnostic Test (Pha) (Accu-Chek) 1 ea 02 XX ; Start 02/20/19 at 02:00 Insulin Aspart (Novolog Insulin Pen) 5 unit WITH MEALS SC Last administered on 02/22/19at 12:30; Admin Dose 5 UNIT; Start 02/20/19 at 07:55 Miscellaneous Information 1 ea NOTE XX ; Start 02/19/19 at 20:00 Glucose (Glutose) 15 gm Q15M PRN PO DECREASED GLUCOSE; Start 02/19/19 at 20:00 Glucose (Glutose) 22.5 gm Q15M PRN PO DECREASED GLUCOSE; Start 02/19/19 at 20:00 Dextrose (D50w Syringe) 25 ml Q15M PRN IV DECREASED GLUCOSE; Start 02/19/19 at 20:00 Dextrose (D50w Syringe) 50 ml Q15M PRN IV DECREASED GLUCOSE; Start 02/19/19 at 20:00 Glucagon (Glucagen) 1 mg Q15M PRN IM DECREASED GLUCOSE; Start 02/19/19 at 20:00 Glucose (Glutose) 15 gm Q15M PRN BUCCAL DECREASED GLUCOSE; Start 02/19/19 at 20:00 Furosemide (Lasix) 20 mg DAILY PO Last administered on 02/22/19at 09:01; Admin Dose 20 MG; Start 02/20/19 at 16:30 Acetaminophen/ Hydrocodone Bitart ([place] (5/325)) 1 tab Q4H WHILE AWAKE PRN PO PAIN LEVEL 6-10 Last administered on 02/22/19at 11:35; Admin Dose 1 TAB; Start 02/20/19 at 16:30 Pantoprazole (Protonix Tab) 40 mg AC BREAKFAST PO Last administered on 02/22/19at 06:10; Admin Dose 40 MG; Start 02/21/19 at 07:25 Spironolactone (Aldactone) 50 mg DAILY PO Last administered on 02/22/19at 09:01; Admin Dose 50 MG; Start 02/20/19 at 16:30 Propranolol HCl (Inderal) 20 mg BID PO ; Start 02/22/19 at 21:00 SYED BAUTISTA M.D. Feb 22, 2019 15:33
[2019-02-22 20:10] VITALS: BP 132/66; PULSE 58; RESP 18
[2019-02-22] MEDS: PROPRANOLOL 20 MG TAB PO SCH (21:15)
[2019-02-23] VITALS (7 sets, daily range): BP systolic 115–133; BP diastolic 58–69; PULSE 55–64; RESP 18–20
[2019-02-23] MEDS: ACCU-CHEK XX SCH (02:00)
[2019-02-23] MEDS: PANTOPRAZOLE (EC) 40 MG TAB PO SCH (06:15)
[2019-02-23] MEDS: INSULIN ASPART [NOVOLOG] 3 ML PEN SC SCH ×3 (07:55→17:10)
[2019-02-23] MEDS: FUROSEMIDE 20 MG TAB PO SCH (08:26)
[2019-02-23] MEDS: SPIRONOLACTONE 50 MG TAB PO SCH (08:28)
[2019-02-23] MEDS: PROPRANOLOL 20 MG TAB PO SCH ×2 (08:28→21:48)
--- NOTE | 2019-02-23 09:44 | PN ---
Date/Time of Note Date/Time of Note DATE: 02/23/19 TIME: 09:44 Assessment/Plan Lines/Catheters IV Catheter Type (from Nrsg): Peripheral IV Assessment/Plan Chief Complaint/Hosp Course no current vascular intervention is needed Continue with supportive care Subjective 24 Hr Interval Summary Constitutional: no complaints, BM, flatus Pain Control: well controlled Exam/Review of Systems Vital Signs Vitals Vital Signs Date Temp Pulse Resp B/P (MAP) Pulse Ox O2 O2 Flow FiO2 Time Delivery Rate 02/24/19 98.0 56 18 125/63 98 Room Air 07:34 (83) Intake and Output 02/23/19 02/23/19 02/24/19 1515:00 23:00 07:00 IntakeIntake Total 240 ml 500 ml OutputOutput Total 4 ml BalanceBalance 236 ml 500 ml Exam Constitutional: alert, oriented Psych: no complaints Head: normocephalic, atraumatic Neck: supple, non-tender Respiratory: normal air movement Cardiovascular: regular rate and rhythm Gastrointestinal: soft, bowel sounds, distended, splenomegaly Musculoskeletal: nl extremities to inspection Extremities: edema Results Result Diagram: 02/24/19 0549 02/24/19 0549 MEENU YIN MD Feb 23, 2019 09:44
--- NOTE | 2019-02-23 14:01 | CONS ---
Assessment/Plan Assessment/Plan Hospital Course (Demo Recall) #Portal vein thrombosis - 2/2 ETOH Cirrhosis #Etoh cirrhosis #Thrombocytopenia #Esophageal varices -AT this time there is no indication for portal vein thrombosis. This is a chronic thrombosis secondary to long standing cirrhosis. Furthermore the patient has already developed collateral veins around this thrombosed vein. Also pt is severe thrombocytopenic and any anticoagulation could put him at increased risk for GI bleed. -continue current management for cirrhosis and varices Consultation Date/Type/Reason Admit Date/Time Feb 19, 2019 at 18:50 Initial Consult Date 02/22/19 Type of Consult hematology Reason for Consultation portal vein thrombosis Requesting Provider: JACK ANNA MD Date/Time of Note DATE: 02/23/19 TIME: 14:00 24 HR Interval Summary Free Text/Dictation no acute overnight events Exam/Review of Systems Exam Vitals Vital Signs Date Temp Pulse Resp B/P (MAP) Pulse Ox O2 O2 Flow FiO2 Time Delivery Rate 02/23/19 98.0 64 19 127/69 94 11:35 (88) 02/19/19 Room Air 22:00 Intake and Output 02/22/19 02/22/19 02/23/19 1515:00 23:00 07:00 IntakeIntake Total 720 ml 300 ml 600 ml OutputOutput Total 1 ml BalanceBalance 719 ml 300 ml 600 ml Constitutional: alert, oriented Psych: no complaints Head: normocephalic Eyes: nl conjunctiva ENMT: nl external ears & nose Neck: supple Respiratory: clear to auscultation Cardiovascular: regular rate and rhythm, nl pulses Gastrointestinal: soft Extremities: normal pulses Results Result Diagram: 02/23/19 0549 02/23/19 0549 Results 24hrs Laboratory Tests Test 02/22/19 17:37 02/23/19 02:03 02/23/19 05:49 02/23/19 08:21 Bedside Glucose 114 171 106 White Blood Count 2.9 L Red Blood Count 3.92 L Hemoglobin 11.8 L Hematocrit 34.0 L Mean Corpuscular 86.7 Volume Mean Corpuscular 30.1 Hemoglobin Mean Corpuscular 34.7 Hemoglobin Concent Red Cell 13.6 Distribution Width Platelet Count 49 L Mean Platelet Volume 12.4 H Immature 0.700 H Granulocytes % Neutrophils % 60.6 Lymphocytes % 24.7 Monocytes % 8.2 Eosinophils % 5.5 Basophils % 0.3 Nucleated Red Blood 0.0 Cells % Immature 0.020 Granulocytes # Neutrophils # 1.8 Lymphocytes # 0.7 L Monocytes # 0.2 L Eosinophils # 0.2 Basophils # 0.0 Nucleated Red Blood 0.0 Cells # Sodium Level 137 Potassium Level 4.0 Chloride Level 107 Carbon Dioxide Level 23 Anion Gap 7 Blood Urea Nitrogen 15 Creatinine 0.78 Est Glomerular > 60 Filtrat Rate mL/min Glucose Level 122 # Calcium Level 8.5 Test 02/23/19 12:24 Bedside Glucose 129 Medications Medication Current Medications IV Flush (NS 3 ml) 3 ml PER PROTOCOL IV ; Start 02/19/19 at 20:00 Ondansetron HCl (Zofran Inj) 4 mg Q6H PRN IV NAUSEA/VOMITING Last administered on 02/20/19at 09:02; Admin Dose 4 MG; Start 02/19/19 at 20:00 Acetaminophen (Tylenol Tab) 650 mg Q6H PRN PO .PAIN 1-3 OR TEMP; Start 02/19/19 at 20:00 Morphine Sulfate (morphine) 2 mg Q4H PRN IV .SEVERE PAIN 7-10 Last administered on 02/22/19at 07:52; Admin Dose 2 MG; Start 02/19/19 at 20:00 Diagnostic Test (Pha) (Accu-Chek) 1 ea 02 XX ; Start 02/20/19 at 02:00 Insulin Aspart (Novolog Insulin Pen) 5 unit WITH MEALS SC Last administered on 02/22/19at 18:19; Admin Dose 5 UNIT; Start 02/20/19 at 07:55 Miscellaneous Information 1 ea NOTE XX ; Start 02/19/19 at 20:00 Glucose (Glutose) 15 gm Q15M PRN PO DECREASED GLUCOSE; Start 02/19/19 at 20:00 Glucose (Glutose) 22.5 gm Q15M PRN PO DECREASED GLUCOSE; Start 02/19/19 at 20:00 Dextrose (D50w Syringe) 25 ml Q15M PRN IV DECREASED GLUCOSE; Start 02/19/19 at 20:00 Dextrose (D50w Syringe) 50 ml Q15M PRN IV DECREASED GLUCOSE; Start 02/19/19 at 20:00 Glucagon (Glucagen) 1 mg Q15M PRN IM DECREASED GLUCOSE; Start 02/19/19 at 20:00 Glucose (Glutose) 15 gm Q15M PRN BUCCAL DECREASED GLUCOSE; Start 02/19/19 at 20:00 Furosemide (Lasix) 20 mg DAILY PO Last administered on 02/23/19at 08:26; Admin Dose 20 MG; Start 02/20/19 at 16:30 Acetaminophen/ Hydrocodone Bitart ([place] (5/325)) 1 tab Q4H WHILE AWAKE PRN PO PAIN LEVEL 6-10 Last administered on 02/22/19at 18:10; Admin Dose 1 TAB; Start 02/20/19 at 16:30 Pantoprazole (Protonix Tab) 40 mg AC BREAKFAST PO Last administered on 02/23/19at 06:15; Admin Dose 40 MG; Start 02/21/19 at 07:25 Spironolactone (Aldactone) 50 mg DAILY PO Last administered on 02/23/19 08:28; Admin Dose 50 MG; Start 02/20/19 at 16:30 Propranolol HCl (Inderal) 20 mg BID PO Last administered on 02/23/19 08:28; Admin Dose 20 MG; Start 02/22/19 at 21:00 SYED BAUTISTA M.D. Feb 23, 2019 14:01
--- NOTE | 2019-02-23 14:38 | PN ---
Date/Time of Note Date/Time of Note DATE: 02/23/19 TIME: 14:18 Assessment/Plan VTE Prophylaxis Risk score (from Ns)>0 risk: 2 SCD applied (from Ns): Yes Pharmacological prophylaxis: NA/contraindicated Pharm contraindication: thrombocytopenia Lines/Catheters IV [facility] Peripheral IV Assessment/Plan Hospital Course Patient is complains of abdominal pain, able to tolerate very small amount of full liquid diet, sugar is well controlled, continue current care. Assessment/Plan -Alcoholic liver cirrhosis, continue propranolol, Lasix, and spironolactone. Dr. Hernandez is following in gastroenterology consultation. -Portal vein thrombosis, chronic, no indication for vascular interventions. No anticoagulation due to thrombocytopenia. Dr. Ornelas is following in vascular surgery consultation. -Pancytopenia. Dr. Meier is following in hematology consultation. -Portal hypertension -Esophageal varices -Anemia, rule out GI bleed, f/up on obtain stool for OB, continue to monitor H&H. Further recommendations based on clinical course. Plan of care discussed with Dr. Cai. Result Diagram: 02/23/19 0549 02/23/19 0549 Results 24hrs Laboratory Tests Test 02/22/19 17:37 02/23/19 02:03 02/23/19 05:49 02/23/19 08:21 Bedside Glucose 114 171 106 White Blood Count 2.9 L Red Blood Count 3.92 L Hemoglobin 11.8 L Hematocrit 34.0 L Mean Corpuscular 86.7 Volume Mean Corpuscular 30.1 Hemoglobin Mean Corpuscular 34.7 Hemoglobin Concent Red Cell 13.6 Distribution Width Platelet Count 49 L Mean Platelet Volume 12.4 H Immature 0.700 H Granulocytes % Neutrophils % 60.6 Lymphocytes % 24.7 Monocytes % 8.2 Eosinophils % 5.5 Basophils % 0.3 Nucleated Red Blood 0.0 Cells % Immature 0.020 Granulocytes # Neutrophils # 1.8 Lymphocytes # 0.7 L Monocytes # 0.2 L Eosinophils # 0.2 Basophils # 0.0 Nucleated Red Blood 0.0 Cells # Sodium Level 137 Potassium Level 4.0 Chloride Level 107 Carbon Dioxide Level 23 Anion Gap 7 Blood Urea Nitrogen 15 Creatinine 0.78 Est Glomerular > 60 Filtrat Rate mL/min Glucose Level 122 # Calcium Level 8.5 Test 02/23/19 12:24 Bedside Glucose 129 Exam/Review of Systems Exam Vitals Vital Signs Date Temp Pulse Resp B/P (MAP) Pulse Ox O2 O2 Flow FiO2 Time Delivery Rate 02/23/19 98.0 64 19 127/69 94 11:35 (88) 02/19/19 Room Air 22:00 Intake and Output 02/22/19 02/22/19 02/23/19 1515:00 23:00 07:00 IntakeIntake Total 720 ml 300 ml 600 ml OutputOutput Total 1 ml BalanceBalance 719 ml 300 ml 600 ml Exam Constitutional: alert, oriented Respiratory: clear to auscultation Cardiovascular: regular rate and rhythm Gastrointestinal: soft, distended, tender Musculoskeletal: nl extremities to inspection Extremities: normal pulses Neurological: nl mental status Skin: nl turgor Results Results 24hrs Laboratory Tests Test 02/22/19 17:37 02/23/19 02:03 02/23/19 05:49 02/23/19 08:21 Bedside Glucose 114 171 106 White Blood Count 2.9 L Red Blood Count 3.92 L Hemoglobin 11.8 L Hematocrit 34.0 L Mean Corpuscular 86.7 Volume Mean Corpuscular 30.1 Hemoglobin Mean Corpuscular 34.7 Hemoglobin Concent Red Cell 13.6 Distribution Width Platelet Count 49 L Mean Platelet Volume 12.4 H Immature 0.700 H Granulocytes % Neutrophils % 60.6 Lymphocytes % 24.7 Monocytes % 8.2 Eosinophils % 5.5 Basophils % 0.3 Nucleated Red Blood 0.0 Cells % Immature 0.020 Granulocytes # Neutrophils # 1.8 Lymphocytes # 0.7 L Monocytes # 0.2 L Eosinophils # 0.2 Basophils # 0.0 Nucleated Red Blood 0.0 Cells # Sodium Level 137 Potassium Level 4.0 Chloride Level 107 Carbon Dioxide Level 23 Anion Gap 7 Blood Urea Nitrogen 15 Creatinine 0.78 Est Glomerular > 60 Filtrat Rate mL/min Glucose Level 122 # Calcium Level 8.5 Test 02/23/19 12:24 Bedside Glucose 129 Medications Medication Current Medications IV Flush (NS 3 ml) 3 ml PER PROTOCOL IV ; Start 02/19/19 at 20:00 Ondansetron HCl (Zofran Inj) 4 mg Q6H PRN IV NAUSEA/VOMITING Last administered on 02/20/19at 09:02; Admin Dose 4 MG; Start 02/19/19 at 20:00 Acetaminophen (Tylenol Tab) 650 mg Q6H PRN PO .PAIN 1-3 OR TEMP; Start 02/19/19 at 20:00 Morphine Sulfate (morphine) 2 mg Q4H PRN IV .SEVERE PAIN 7-10 Last administered on 02/22/19at 07:52; Admin Dose 2 MG; Start 02/19/19 at 20:00 Diagnostic Test (Pha) (Accu-Chek) 1 ea 02 XX ; Start 02/20/19 at 02:00 Insulin Aspart (Novolog Insulin Pen) 5 unit WITH MEALS SC Last administered on 02/22/19at 18:19; Admin Dose 5 UNIT; Start 02/20/19 at 07:55 Miscellaneous Information 1 ea NOTE XX ; Start 02/19/19 at 20:00 Glucose (Glutose) 15 gm Q15M PRN PO DECREASED GLUCOSE; Start 02/19/19 at 20:00 Glucose (Glutose) 22.5 gm Q15M PRN PO DECREASED GLUCOSE; Start 02/19/19 at 20:00 Dextrose (D50w Syringe) 25 ml Q15M PRN IV DECREASED GLUCOSE; Start 02/19/19 at 20:00 Dextrose (D50w Syringe) 50 ml Q15M PRN IV DECREASED GLUCOSE; Start 02/19/19 at 20:00 Glucagon (Glucagen) 1 mg Q15M PRN IM DECREASED GLUCOSE; Start 02/19/19 at 20:00 Glucose (Glutose) 15 gm Q15M PRN BUCCAL DECREASED GLUCOSE; Start 02/19/19 at 20:00 Furosemide (Lasix) 20 mg DAILY PO Last administered on 02/23/19at 08:26; Admin Dose 20 MG; Start 02/20/19 at 16:30 Acetaminophen/ Hydrocodone Bitart ([place] (5/325)) 1 tab Q4H WHILE AWAKE PRN PO PAIN LEVEL 6-10 Last administered on 02/22/19at 18:10; Admin Dose 1 TAB; Start 02/20/19 at 16:30 Pantoprazole (Protonix Tab) 40 mg AC BREAKFAST PO Last administered on 02/23/19at 06:15; Admin Dose 40 MG; Start 02/21/19 at 07:25 Spironolactone (Aldactone) 50 mg DAILY PO Last administered on 02/23/19at 08:28; Admin Dose 50 MG; Start 02/20/19 at 16:30 Propranolol HCl (Inderal) 20 mg BID PO Last administered on 02/23/19at 08:28; Admin Dose 20 MG; Start 02/22/19 at 21:00 BRENNA SPEARS Feb 23, 2019 14:30
[2019-02-23] MEDS: HYDROCODONE/APAP (5/325) TAB PO PRN (17:00)
--- NOTE | 2019-02-23 17:50 | CONS ---
Assessment/Plan Assessment/Plan Assessment/Plan (Daily) Assessment/Plan (Daily) Hospital Course (Demo Recall) 63 yo male 1. Portal vein thrombosis 2. Alcoholic Liver cirrhosis with portal htn 3. Extensive esophageal varices seen on Ct 4. Anemia, mild -anemia work up 5. Rt inguinal hernia containing non obstructed small bowel. CT abd: No evidence of urolithiasis, obstructive uropathy, diverticulitis or appendicitis. Cirrhotic liver. Post cholecystectomy. 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 Extensive upper abdominal and para esophageal varices. Splenomegaly with trace ascites consistent with portal hypertension. Right inguinal hernia containing nonobstructed small bowel. Elevated right hemidiaphragm. Atelectasis diaphragmatic aspect right middle lobe and right lower lobe. Vascular calcifications. Plan: Vascular surgery consult and anti coagulants for thrombosis AFP, ammonia, anemia work up Continue beta willie, and diuretics. Patient needs nonselective beta-willie. Atenolol has been stopped and patient is started on Inderal PPI Monitor HH and for active GI bleeding Patient will require banding procedure he had banding done by me at [facility]. Patient is scheduled for banding procedure tomorrow Consultation Date/Type/Reason Admit Date/Time Feb 19, 2019 at 18:50 Initial Consult Date Requesting Provider: JACK ANNA MD Date/Time of Note DATE: 02/23/19 TIME: 17:49 24 HR Interval Summary Constitutional: no complaints, improved Exam/Review of Systems Exam Vitals Vital Signs Date Temp Pulse Resp B/P (MAP) Pulse Ox O2 O2 Flow FiO2 Time Delivery Rate 02/23/19 98.8 60 19 124/63 94 15:04 (83) 02/19/19 Room Air 22:00 Intake and Output 02/22/19 02/22/19 02/23/19 1515:00 23:00 07:00 IntakeIntake Total 720 ml 300 ml 600 ml OutputOutput Total 1 ml BalanceBalance 719 ml 300 ml 600 ml Constitutional: alert, oriented, well developed Psych: no complaints, nl mood/affect Head: normocephalic, atraumatic Eyes: nl conjunctiva, EOMI, nl lids, nl sclera, PERRL ENMT: nl external ears & nose, nl lips & teeth, nl nasal mucosa & septum Neck: supple, non-tender Respiratory: clear to auscultation, normal air movement Cardiovascular: regular rate and rhythm, nl pulses Gastrointestinal: soft, nl liver, spleen, non-tender Musculoskeletal: nl extremities to inspection, nl gait and stance Extremities: normal pulses Neurological: ESTHETICS INSTRUCTOR II-XII intact, nl mental status, nl speech, nl strength Skin: nl turgor; No rash or lesions Lymph: nl lymph nodes Results Result Diagram: 02/23/19 0549 02/23/19 0549 Results 24hrs Laboratory Tests Test 02/23/19 02:03 02/23/19 05:49 02/23/19 08:21 02/23/19 12:24 Bedside Glucose 171 106 129 White Blood Count 2.9 L Red Blood Count 3.92 L Hemoglobin 11.8 L Hematocrit 34.0 L Mean Corpuscular 86.7 Volume Mean Corpuscular 30.1 Hemoglobin Mean Corpuscular 34.7 Hemoglobin Concent Red Cell 13.6 Distribution Width Platelet Count 49 L Mean Platelet Volume 12.4 H Immature 0.700 H Granulocytes % Neutrophils % 60.6 Lymphocytes % 24.7 Monocytes % 8.2 Eosinophils % 5.5 Basophils % 0.3 Nucleated Red Blood 0.0 Cells % Immature 0.020 Granulocytes # Neutrophils # 1.8 Lymphocytes # 0.7 L Monocytes # 0.2 L Eosinophils # 0.2 Basophils # 0.0 Nucleated Red Blood 0.0 Cells # Sodium Level 137 Potassium Level 4.0 Chloride Level 107 Carbon Dioxide Level 23 Anion Gap 7 Blood Urea Nitrogen 15 Creatinine 0.78 Est Glomerular > 60 Filtrat Rate mL/min Glucose Level 122 # Calcium Level 8.5 Test 02/23/19 17:09 Bedside Glucose 136 Medications Medication Current Medications IV Flush (NS 3 ml) 3 ml PER PROTOCOL IV ; Start 02/19/19 at 20:00 Ondansetron HCl (Zofran Inj) 4 mg Q6H PRN IV NAUSEA/VOMITING Last administered on 02/20/19at 09:02; Admin Dose 4 MG; Start 02/19/19 at 20:00 Acetaminophen (Tylenol Tab) 650 mg Q6H PRN PO .PAIN 1-3 OR TEMP; Start 02/19/19 at 20:00 Morphine Sulfate (morphine) 2 mg Q4H PRN IV .SEVERE PAIN 7-10 Last administered on 02/22/19at 07:52; Admin Dose 2 MG; Start 02/19/19 at 20:00 Diagnostic Test (Pha) (Accu-Chek) 1 ea 02 XX ; Start 02/20/19 at 02:00 Insulin Aspart (Novolog Insulin Pen) 5 unit WITH MEALS SC Last administered on 02/22/19 18:19; Admin Dose 5 UNIT; Start 02/20/19 at 07:55 Miscellaneous Information 1 ea NOTE XX ; Start 02/19/19 at 20:00 Glucose (Glutose) 15 gm Q15M PRN PO DECREASED GLUCOSE; Start 02/19/19 at 20:00 Glucose (Glutose) 22.5 gm Q15M PRN PO DECREASED GLUCOSE; Start 02/19/19 at 20:00 Dextrose (D50w Syringe) 25 ml Q15M PRN IV DECREASED GLUCOSE; Start 02/19/19 at 20:00 Dextrose (D50w Syringe) 50 ml Q15M PRN IV DECREASED GLUCOSE; Start 02/19/19 at 20:00 Glucagon (Glucagen) 1 mg Q15M PRN IM DECREASED GLUCOSE; Start 02/19/19 at 20:00 Glucose (Glutose) 15 gm Q15M PRN BUCCAL DECREASED GLUCOSE; Start 02/19/19 at 20:00 Furosemide (Lasix) 20 mg DAILY PO Last administered on 02/23/19at 08:26; Admin Dose 20 MG; Start 02/20/19 at 16:30 Acetaminophen/ Hydrocodone Bitart ([place] (5/325)) 1 tab Q4H WHILE AWAKE PRN PO PAIN LEVEL 6-10 Last administered on 02/23/19at 17:00; Admin Dose 1 TAB; Start 02/20/19 at 16:30 Pantoprazole (Protonix Tab) 40 mg AC BREAKFAST PO Last administered on 02/23/19at 06:15; Admin Dose 40 MG; Start 02/21/19 at 07:25 Spironolactone (Aldactone) 50 mg DAILY PO Last administered on 02/23/19 08:28; Admin Dose 50 MG; Start 02/20/19 at 16:30 Propranolol HCl (Inderal) 20 mg BID PO Last administered on 02/23/19 08:28; Admin Dose 20 MG; Start 02/22/19 at 21:00 SOCO GALLOWAY MD Feb 23, 2019 17:50
[2019-02-24] VITALS (14 sets, daily range): BP systolic 91–140; BP diastolic 33–82; PULSE 54–64; RESP 12–47
[2019-02-24] MEDS: ACCU-CHEK XX SCH (02:00)
[2019-02-24] MEDS: PANTOPRAZOLE (EC) 40 MG TAB PO SCH (07:25)
[2019-02-24] MEDS: INSULIN ASPART [NOVOLOG] 3 ML PEN SC SCH ×3 (07:55→17:58)
[2019-02-24] MEDS: PROPRANOLOL 20 MG TAB PO SCH ×2 (08:03→21:32)
[2019-02-24] MEDS: SPIRONOLACTONE 50 MG TAB PO SCH (08:03)
[2019-02-24] MEDS: morphine 2 MG INJ IV PRN (08:04)
[2019-02-24] MEDS: FUROSEMIDE 20 MG TAB PO SCH (08:04)
--- NOTE | 2019-02-24 09:25 | PN ---
Date/Time of Note Date/Time of Note DATE: 02/24/19 TIME: 09:24 Assessment/Plan Lines/Catheters IV Catheter Type (from Nrsg): Peripheral IV Assessment/Plan Chief Complaint/Hosp Course no current vascular intervention is needed Continue with supportive care Subjective 24 Hr Interval Summary Constitutional: no complaints, ambulates, BM, flatus Pain Control: well controlled Exam/Review of Systems Vital Signs Vitals Vital Signs Date Temp Pulse Resp B/P (MAP) Pulse Ox O2 O2 Flow FiO2 Time Delivery Rate 02/24/19 98.0 56 18 125/63 98 Room Air 07:34 (83) Intake and Output 02/23/19 02/23/19 02/24/19 1515:00 23:00 07:00 IntakeIntake Total 240 ml 500 ml OutputOutput Total 4 ml BalanceBalance 236 ml 500 ml Exam Constitutional: alert, oriented Psych: no complaints Head: normocephalic, atraumatic ENMT: mucosa pink and moist Neck: supple, non-tender Respiratory: clear to auscultation Cardiovascular: regular rate and rhythm Gastrointestinal: soft, non-tender, ascites, splenomegaly Musculoskeletal: nl extremities to inspection Extremities: edema Results Result Diagram: 02/24/19 0549 02/24/19 0549 MEENU YIN MD Feb 24, 2019 09:25
--- NOTE | 2019-02-24 10:03 | CONS ---
DATE OF ADMISSION: 02/19/2019 DATE OF CONSULTATION: 02/22/2019 TYPE OF CONSULTATION: Vascular surgery. Dear Doctors: Mr. Salvador Chandra is a 63-year-old gentleman with history of alcoholic liver cirrhosis and plethora of medical conditions and esophageal varices, status post ligation 4 years ago, that presented to [facility] secondary to severe abdominal pain that developed on Wednesday with episodes o f emesis. During his workup, the patient underwent CT scan of the abdomen and pelvis, which identifi ed the patient having portal vein thrombosis with splenomegaly and ascites. Vascular surgical consul t has been obtained for further evaluation. At the moment, the patient denies shortness of breath, c hest pain, nausea, vomiting, fever or chills. The patient does have abdominal pain. REVIEW OF SYSTEMS: A 14-point review performed and negative except what is mentioned in the HPI. PAST MEDICAL HISTORY: Entails alcoholic liver cirrhosis, hypertension, extensive esophageal varices, right inguinal hernia containing non-obstructed small bowel, portal hypertension. PAST SURGICAL HISTORY: Cholecystectomy, extensive esophageal varices, splenomegaly. FAMILY HISTORY: Hypertension. SOCIAL HISTORY: Former alcohol drinker. Denies smoking. Denies illicit drug abuse. PHYSICAL EXAMINATION: GENERAL: Alert and oriented x3. In no apparent distress. HEENT: Normocephalic, atraumatic. Poor dentures. NECK: Supple, no carotid bruit. PULMONARY: Coarse breath sounds bilaterally. CARDIOVASCULAR: S1, S2 present. No murmurs. ABDOMEN: Softly distended, mild abdominal pain in the epigastric area. Fluid shift and superficial veins. Bowel sounds positive. RIGHT LOWER EXTREMITY: Palpable femoral pulse, nonpalpable pedal pulse. Motor, sensory intact. Cap refill 3 seconds. Edema. LEFT LOWER EXTREMITY: Palpable femoral pulse, nonpalpable pedal pulse. Motor, sensory intact. Cap refill 3 seconds. Edema. ASSESSMENT AND PLAN: 1. Portal vein thrombosis: It seems the patient has had longstanding history of alcoholic liver cir rhosis with findings of portal vein thrombosis. The findings appear to be chronic, as the patient galvez s developed large collateral tributaries that have compensated for this change. At the moment given the patient's thrombocytopenia and history of large esophageal varices, no indication to anticoagulat e this patient, as the patient is also an increased risk for gastrointestinal bleed. At the moment, would recommend to continue with conservative management and recommendations per our gastroenterology colleagues. 2. We will continue to monitor patient's progress with our team. 3. Discussed findings, plan and management with the patient with a certified bath steward/stewardess. He underst ands all that is involved. Optimize vascular status (BP meds, diet, nutrition, exercise). Thank you for allowing us to partake in the care of your patient. Please call with any questions. Dictated By: MEENU LOCK/YESICA Conf#: [id number] DID#: [id number] CC: MELITON FLEMING MD;*EndCC*
--- NOTE | 2019-02-24 10:26 | CONS ---
Assessment/Plan Assessment/Plan Hospital Course (Demo Recall) #Portal vein thrombosis - 2/2 ETOH Cirrhosis #Etoh cirrhosis #Thrombocytopenia #Esophageal varices -AT this time there is no indication for portal vein thrombosis. This is a chronic thrombosis secondary to long standing cirrhosis. Furthermore the patient has already developed collateral veins around this thrombosed vein. Also pt is severe thrombocytopenic and any anticoagulation could put him at increased risk for GI bleed. -continue current management for cirrhosis and varices -f/u EGD Consultation Date/Type/Reason Admit Date/Time Feb 19, 2019 at 18:50 Initial Consult Date 02/22/19 Type of Consult hematology Reason for Consultation portal vein thrombosis Requesting Provider: JACK ANNA MD Date/Time of Note DATE: 02/24/19 TIME: 10:24 24 HR Interval Summary Free Text/Dictation pt due for EGD today. still with abdominal pain Exam/Review of Systems Exam Vitals Vital Signs Date Temp Pulse Resp B/P (MAP) Pulse Ox O2 O2 Flow FiO2 Time Delivery Rate 02/24/19 98.0 56 18 125/63 98 Room Air 07:34 (83) Intake and Output 02/23/19 02/23/19 02/24/19 1515:00 23:00 07:00 IntakeIntake Total 240 ml 500 ml OutputOutput Total 4 ml BalanceBalance 236 ml 500 ml Constitutional: alert, oriented Psych: no complaints, anxiety Head: normocephalic Eyes: nl conjunctiva ENMT: nl external ears & nose Neck: supple Respiratory: clear to auscultation Cardiovascular: regular rate and rhythm Gastrointestinal: soft Musculoskeletal: nl extremities to inspection Results Result Diagram: 02/24/19 0549 02/24/19 0549 Results 24hrs Laboratory Tests Test 02/23/19 12:24 02/23/19 17:09 02/24/19 02:56 02/24/19 05:49 Bedside Glucose 129 136 124 White Blood Count 4.2 #L Red Blood Count 4.34 L Hemoglobin 12.8 L Hematocrit 37.8 L Mean Corpuscular 87.1 Volume Mean Corpuscular 29.5 Hemoglobin Mean Corpuscular 33.9 Hemoglobin Concent Red Cell 13.8 Distribution Width Platelet Count 55 L Mean Platelet Volume 12.3 H Immature 0.700 H Granulocytes % Neutrophils % 63.6 Lymphocytes % 22.2 Monocytes % 8.0 Eosinophils % 5.3 Basophils % 0.2 Nucleated Red Blood 0.0 Cells % Immature 0.030 Granulocytes # Neutrophils # 2.6 Lymphocytes # 0.9 Monocytes # 0.3 Eosinophils # 0.2 Basophils # 0.0 Nucleated Red Blood 0.0 Cells # Sodium Level 137 Potassium Level 4.0 Chloride Level 108 Carbon Dioxide Level 21 Anion Gap 8 Blood Urea Nitrogen 16 Creatinine 0.73 Est Glomerular > 60 Filtrat Rate mL/min Glucose Level 111 Calcium Level 8.9 Test 02/24/19 08:03 Bedside Glucose 114 Medications Medication Current Medications IV Flush (NS 3 ml) 3 ml PER PROTOCOL IV ; Start 02/19/19 at 20:00 Ondansetron HCl (Zofran Inj) 4 mg Q6H PRN IV NAUSEA/VOMITING Last administered on 02/20/19at 09:02; Admin Dose 4 MG; Start 02/19/19 at 20:00 Acetaminophen (Tylenol Tab) 650 mg Q6H PRN PO .PAIN 1-3 OR TEMP; Start 02/19/19 at 20:00 Morphine Sulfate (morphine) 2 mg Q4H PRN IV .SEVERE PAIN 7-10 Last administered on 02/24/19at 08:04; Admin Dose 2 MG; Start 02/19/19 at 20:00 Diagnostic Test (Pha) (Accu-Chek) 1 ea 02 XX ; Start 02/20/19 at 02:00 Insulin Aspart (Novolog Insulin Pen) 5 unit WITH MEALS SC Last administered on 02/22/19at 18:19; Admin Dose 5 UNIT; Start 02/20/19 at 07:55 Miscellaneous Information 1 ea NOTE XX ; Start 02/19/19 at 20:00 Glucose (Glutose) 15 gm Q15M PRN PO DECREASED GLUCOSE; Start 02/19/19 at 20:00 Glucose (Glutose) 22.5 gm Q15M PRN PO DECREASED GLUCOSE; Start 02/19/19 at 20:00 Dextrose (D50w Syringe) 25 ml Q15M PRN IV DECREASED GLUCOSE; Start 02/19/19 at 20:00 Dextrose (D50w Syringe) 50 ml Q15M PRN IV DECREASED GLUCOSE; Start 02/19/19 at 20:00 Glucagon (Glucagen) 1 mg Q15M PRN IM DECREASED GLUCOSE; Start 02/19/19 at 20:00 Glucose (Glutose) 15 gm Q15M PRN BUCCAL DECREASED GLUCOSE; Start 02/19/19 at 20:00 Furosemide (Lasix) 20 mg DAILY PO Last administered on 02/23/19at 08:26; Admin Dose 20 MG; Start 02/20/19 at 16:30 Acetaminophen/ Hydrocodone Bitart ([place] (5/325)) 1 tab Q4H WHILE AWAKE PRN PO PAIN LEVEL 6-10 Last administered on 02/23/19at 17:00; Admin Dose 1 TAB; Start 02/20/19 at 16:30 Pantoprazole (Protonix Tab) 40 mg AC BREAKFAST PO Last administered on 02/23/19at 06:15; Admin Dose 40 MG; Start 02/21/19 at 07:25 Spironolactone (Aldactone) 50 mg DAILY PO Last administered on 02/23/19at 08:28; Admin Dose 50 MG; Start 02/20/19 at 16:30 Propranolol HCl (Inderal) 20 mg BID PO Last administered on 02/23/19at 21:48; Admin Dose 20 MG; Start 02/22/19 at 21:00 SYED BAUTISTA M.D. Feb 24, 2019 10:25
--- NOTE | 2019-02-24 11:47 | PREAC ---
Date/Time of Note Date/Time of Note DATE: 02/24/19 TIME: 11:44 Anesthesia Eval and Record Evaluation Time Pre-Procedure Interview DATE: 02/24/19 TIME: 11:44 Age 63 Sex male NPO: 8 hrs Preoperative diagnosis abdominal pain Planned procedure EGD Past Medical History Past Medical History: Includes Cardio: HTN (METS>4, denies CP/SOB) Endo: Diabetes Hepatic: Cirrhosis (2/2ETOH with Portal HTN) Heme: Thrombocytopenia Surgery & Anesthesia Issues No known issue Meds Anticoagulation: No Beta Dedrick within 24 hr: Yes Reported Medications Sucralfate* (Carafate*) 1 Gm Tab, 1 GM PO AC MEALS AND BEDTIME, TAB 02/19/19 Spironolactone* (Aldactone*) 50 Mg Tablet, 50 MG PO DAILY, #30 TAB 02/19/19 Pantoprazole* (Pantoprazole*) 40 Mg Tablet.dr, 40 MG PO AC BREAKFAST, TAB 02/19/19 Multivitamins* (Theragran*) 1 Tab Tab, 1 TAB PO DAILY, TAB 02/19/19 Furosemide* (Furosemide*) 20 Mg Tablet, 20 MG PO DAILY, #60 TAB 02/19/19 Atenolol* (Atenolol*) 25 Mg Tablet, 25 MG PO DAILY, #30 TAB 02/19/19 Hydrocodone/Acetaminophen ([place] 5-325 Tablet) 1 Each Tablet, 1 EACH PO Q4H WHILE AWAKE, TAB 02/19/19 Discontinued Reported Medications Omeprazole* (Omeprazole*) 20 Mg Capsule.dr, 20 MG PO DAILY, #30 CAP 10/01/15 Propranolol Hcl* (Propranolol Hcl*) 10 Mg Tablet, 10 MG PO BID, TAB 10/01/15 Ferrous Sulfate (Iron) 325 Mg Capsr, 325 MG PO BID 11/05/14 Discontinued Scripts Dextromethorphan Hb-Promethazine Hcl* (Promethazine DM* Syrup) 473 Ml Syrup, 5 ML PO Q6 PRN for COUGH for 5 Days, ML Prov:MARIOLA HEATH MD 09/03/18 Azithromycin* (Zithromax*) 250 Mg Tablet, 250 MG PO .KandyPACK DIRECTED, #6 TAB TAKE 500 MG (2 TABS) THE FIRST DAY THEN 250 MG (1 TAB) DAYS 2-5 Prov:MARIOLA HEATH MD 09/03/18 Hydrocodone/Acetaminophen ([place] 5-325 Tablet) 1 Each Tablet, 1 TAB PO Q6H PRN for PAIN, #20 TAB Prov:ARMEN JEONG DO 02/19/17 Azithromycin* (Zithromax*) 250 Mg Tablet, 250 MG PO .GT DIRECTED, #6 TAB TAKE 500 MG (2 TABS) THE FIRST DAY THEN 250 MG (1 TAB) DAYS 2-5 Prov:MODE FRIAS PA-C 09/16/16 Polymyxin B Sulfate-TMP* (Polymyxin B-TMP Eye Drops*) 10 Ml Drops, 1 DROP BOTH EYES QID for 7 Days, EA Prov:MODE FRIAS PA-C 09/16/16 Tramadol HCl (Tramadol HCl) 50 Mg Tablet, 50 MG PO Q4 PRN for PAIN, #15 TAB Prov:MODE FRAIS PA-C 09/16/16 Ranitidine Hcl* (Zantac*) 150 Mg Tablet, 150 MG PO BID PRN for EPIGASTRIC PAIN, #30 TAB Prov:MODE ALVES 05/18/16 Sucralfate* (Carafate*) 1 Gm Tab, 1 GM PO QID, #30 TAB Prov:MODE ALVES 05/18/16 Peg 3350/Na Sulf,Bicarb,Cl/KCl (Golytely Packet) 1 Each Powd.pack, 1 EACH PO DAILY for CONSTIPATION, #1 Prov:ANGIE PATEL MD 04/24/16 Ondansetron Hcl* (Zofran*) 4 Mg Tablet, 4 MG PO TID, #30 TAB Prov:ANGIE PATEL MD 04/24/16 Hydrocodone/Acetaminophen ([place] 5-325 Tablet) 1 Each Tablet, 1 TAB PO TID PRN for PAIN, #12 TAB Prov:ANGIE PATEL MD 04/24/16 Current Medications IV Flush (NS 3 ml) 3 ml PER PROTOCOL IV ; Start 02/19/19 at 20:00 Ondansetron HCl (Zofran Inj) 4 mg Q6H PRN IV NAUSEA/VOMITING Last administered on 02/20/19at 09:02; Admin Dose 4 MG; Start 02/19/19 at 20:00 Acetaminophen (Tylenol Tab) 650 mg Q6H PRN PO .PAIN 1-3 OR TEMP; Start 02/19/19 at 20:00 Morphine Sulfate (morphine) 2 mg Q4H PRN IV .SEVERE PAIN 7-10 Last administered on 02/24/19at 08:04; Admin Dose 2 MG; Start 02/19/19 at 20:00 Diagnostic Test (Pha) (Accu-Chek) 1 ea 02 XX ; Start 02/20/19 at 02:00 Insulin Aspart (Novolog Insulin Pen) 5 unit WITH MEALS SC Last administered on 02/22/19at 18:19; Admin Dose 5 UNIT; Start 02/20/19 at 07:55 Miscellaneous Information 1 ea NOTE XX ; Start 02/19/19 at 20:00 Glucose (Glutose) 15 gm Q15M PRN PO DECREASED GLUCOSE; Start 02/19/19 at 20:00 Glucose (Glutose) 22.5 gm Q15M PRN PO DECREASED GLUCOSE; Start 02/19/19 at 20:00 Dextrose (D50w Syringe) 25 ml Q15M PRN IV DECREASED GLUCOSE; Start 02/19/19 at 20:00 Dextrose (D50w Syringe) 50 ml Q15M PRN IV DECREASED GLUCOSE; Start 02/19/19 at 20:00 Glucagon (Glucagen) 1 mg Q15M PRN IM DECREASED GLUCOSE; Start 02/19/19 at 20:00 Glucose (Glutose) 15 gm Q15M PRN BUCCAL DECREASED GLUCOSE; Start 02/19/19 at 20:00 Furosemide (Lasix) 20 mg DAILY PO Last administered on 02/23/19at 08:26; Admin Dose 20 MG; Start 02/20/19 at 16:30 Acetaminophen/ Hydrocodone Bitart ([place] (5/325)) 1 tab Q4H WHILE AWAKE PRN PO PAIN LEVEL 6-10 Last administered on 02/23/19at 17:00; Admin Dose 1 TAB; Start at 16:30 Pantoprazole (Protonix Tab) 40 mg AC BREAKFAST PO Last administered on 02/23/19at 06:15; Admin Dose 40 MG; Start 02/21/19 at 07:25 Spironolactone (Aldactone) 50 mg DAILY PO Last administered on 02/23/19at 08:28; Admin Dose 50 MG; Start 02/20/19 at 16:30 Propranolol HCl (Inderal) 20 mg BID PO Last administered on 02/23/19at 21:48; Admin Dose 20 MG; Start 02/22/19 at 21:00 Meds reviewed: Yes Allergies Coded Allergies: Penicillins (Verified Allergy, Unknown, rash, 02/19/19) Allergies Reviewed: Yes Labs/Studies Labs Reviewed: Reviewed by anesthesiologist Result Diagram: 02/24/19 0549 02/24/19 0549 Laboratory Tests 02/24/19 05:49 test: N/A Studies: CXR (NAD) Pre-procedure Exam Last vitals Vital Signs Date Temp Pulse Resp B/P (MAP) Pulse Ox O2 O2 Flow FiO2 Time Delivery Rate 02/24/19 98.0 56 18 125/63 98 Room Air 07:34 (83) Airway: Adequate mouth opening Mallampati: Mallampati III Teeth: Abnormal (poor dentition, multiple missing, none loose) Lung: Abnormal (diminished) Heart: Normal ASA Physical Status ASA physical status: 3 Emergency: None Planned Anesthetic General/MAC: MAC Pre-operative Attestations Prior to commencing anesthesia and surgery, the patient was re-evaluated, there was verification of: *The patient's identity *The results of appropriate recent lab work and preoperative vital signs *The above evaluation not changing prior to induction *Anesthetic plan, risk benefits, alternative and complications discussed with patient/family; questions answered; patient/family understands, accepts and w ishes to proceed. HALIMA ANTHONY CRNA Feb 24, 2019 11:47
[2019-02-24] MEDS ORDERED: CIPROFLOXACIN 400MG/D5W 200 ML ONE (12:19)
[2019-02-24] MEDS ORDERED: PROPOFOL 20 ML ONE ×2 (12:23→12:39)
--- NOTE | 2019-02-24 12:41 | PAC ---
Date/Time of Note Date/Time of Note DATE: 02/24/19 TIME: 12:40 Post-Anesthesia Notes Post-Anesthesia Note Last documented vital signs Vital Signs Date Temp Pulse Resp B/P (MAP) Pulse Ox O2 O2 Flow FiO2 Time Delivery Rate 02/24/19 54 12 132/82 98 Room Air 12:05 (99) 02/24/19 10 12:00 02/24/19 98.0 12:34 Activity: WNL Respiratory function: WNL Cardiovascular function: WNL Mental status: Baseline Pain reasonably controlled: Yes Hydration appropriate: Yes Nausea/Vomiting absent: Yes MARIA R VALENZUELA MD Feb 24, 2019 12:41
--- NOTE | 2019-02-24 23:15 | PN ---
Date/Time of Note Date/Time of Note DATE: 02/24/19 TIME: 23:13 Assessment/Plan VTE Prophylaxis Risk score (from [facility])>0 risk: 2 SCD applied (from [facility]): No SCD contraindicated: other Pharmacological prophylaxis: other Pharm contraindication: other Lines/Catheters IV C[facility]ter Type (from [facility] Saline Lock Assessment/Plan Assessment/Plan -Alcoholic liver cirrhosis, continue propranolol, Lasix, and spironolactone. Dr. Hernandez is following in gastroenterology consultation. -Portal vein thrombosis, chronic, no indication for vascular interventions. No anticoagulation due to thrombocytopenia. Dr. Ornelas is following in vascular surgery consultation. -Pancytopenia. Dr. Meier is following in hematology consultation. -Portal hypertension -Esophageal varices -Anemia, rule out GI bleed, f/up on obtain stool for OB, continue to monitor H&H. Further recommendations based on clinical course. Plan of care discussed with Dr. Cai. Result Diagram: 02/24/19 0549 02/24/19 0549 Results 24hrs Laboratory Tests Test 02/24/19 02:56 02/24/19 05:49 02/24/19 08:03 02/24/19 17:55 Bedside Glucose 124 114 131 White Blood Count 4.2 #L Red Blood Count 4.34 L Hemoglobin 12.8 L Hematocrit 37.8 L Mean Corpuscular 87.1 Volume Mean Corpuscular 29.5 Hemoglobin Mean Corpuscular 33.9 Hemoglobin Concent Red Cell 13.8 Distribution Width Platelet Count 55 L Mean Platelet Volume 12.3 H Immature 0.700 H Granulocytes % Neutrophils % 63.6 Lymphocytes % 22.2 Monocytes % 8.0 Eosinophils % 5.3 Basophils % 0.2 Nucleated Red Blood 0.0 Cells % Immature 0.030 Granulocytes # Neutrophils # 2.6 Lymphocytes # 0.9 Monocytes # 0.3 Eosinophils # 0.2 Basophils # 0.0 Nucleated Red Blood 0.0 Cells # Sodium Level 137 Potassium Level 4.0 Chloride Level 108 Carbon Dioxide Level 21 Anion Gap 8 Blood Urea Nitrogen 16 Creatinine 0.73 Est Glomerular > 60 Filtrat Rate mL/min Glucose Level 111 Calcium Level 8.9 Test 02/24/19 21:24 Bedside Glucose 155 Subjective 24 Hr Interval Summary Free Text/Dictation 0930 AM Plan for EGD today no events last night Eyes: no complaints ENT: no complaints Respiratory: no complaints Cardiovascular: no complaints Gastrointestinal: pain Genitourinary: no complaints Musculoskeletal: no complaints Skin: no complaints Neurologic: no complaints Lymphatic: no complaints Exam/Review of Systems Exam Vitals Vital Signs Date Temp Pulse Resp B/P (MAP) Pulse Ox O2 O2 Flow FiO2 Time Delivery Rate 02/24/19 97.8 64 18 128/70 96 19:15 (89) 02/24/19 Room Air 15:33 02/24/19 10 12:00 Intake and Output 02/23/19 02/23/19 02/24/19 1515:00 23:00 07:00 IntakeIntake Total 240 ml 500 ml OutputOutput Total 4 ml BalanceBalance 236 ml 500 ml Constitutional: alert, well developed Psych: no complaints Head: normocephalic Eyes: nl lids, nl sclera ENMT: nl external ears & nose Neck: non-tender Respiratory: clear to auscultation Cardiovascular: nl pulses, other (s1s2) Gastrointestinal: soft, tender (diffuse) Musculoskeletal: nl extremities to inspection Extremities: normal pulses Neurological: nl speech, other (alert) Lymph: nontender Results Results 24hrs Laboratory Tests Test 02/24/19 02:56 02/24/19 05:49 02/24/19 08:03 02/24/19 17:55 Bedside Glucose 124 114 131 White Blood Count 4.2 #L Red Blood Count 4.34 L Hemoglobin 12.8 L Hematocrit 37.8 L Mean Corpuscular 87.1 Volume Mean Corpuscular 29.5 Hemoglobin Mean Corpuscular 33.9 Hemoglobin Concent Red Cell 13.8 Distribution Width Platelet Count 55 L Mean Platelet Volume 12.3 H Immature 0.700 H Granulocytes % Neutrophils % 63.6 Lymphocytes % 22.2 Monocytes % 8.0 Eosinophils % 5.3 Basophils % 0.2 Nucleated Red Blood 0.0 Cells % Immature 0.030 Granulocytes # Neutrophils # 2.6 Lymphocytes # 0.9 Monocytes # 0.3 Eosinophils # 0.2 Basophils # 0.0 Nucleated Red Blood 0.0 Cells # Sodium Level 137 Potassium Level 4.0 Chloride Level 108 Carbon Dioxide Level 21 Anion Gap 8 Blood Urea Nitrogen 16 Creatinine 0.73 Est Glomerular > 60 Filtrat Rate mL/min Glucose Level 111 Calcium Level 8.9 Test 02/24/19 21:24 Bedside Glucose 155 Medications Medication Current Medications IV Flush (NS 3 ml) 3 ml PER PROTOCOL IV ; Start 02/19/19 at 20:00 Ondansetron HCl (Zofran Inj) 4 mg Q6H PRN IV NAUSEA/VOMITING Last administered on 02/20/19at 09:02; Admin Dose 4 MG; Start 02/19/19 at 20:00 Acetaminophen (Tylenol Tab) 650 mg Q6H PRN PO .PAIN 1-3 OR TEMP; Start 02/19/19 at 20:00 Morphine Sulfate (morphine) 2 mg Q4H PRN IV .SEVERE PAIN 7-10 Last administered on 02/24/19at 08:04; Admin Dose 2 MG; Start 02/19/19 at 20:00 Diagnostic Test (Pha) (Accu-Chek) 1 ea 02 XX ; Start 02/20/19 at 02:00 Insulin Aspart (Novolog Insulin Pen) 5 unit WITH MEALS SC Last administered on 02/24/19at 17:58; Admin Dose 5 UNIT; Start 02/20/19 at 07:55 Miscellaneous Information 1 ea NOTE XX ; Start 02/19/19 at 20:00 Glucose (Glutose) 15 gm Q15M PRN PO DECREASED GLUCOSE; Start 02/19/19 at 20:00 Glucose (Glutose) 22.5 gm Q15M PRN PO DECREASED GLUCOSE; Start 02/19/19 at 20:00 Dextrose (D50w Syringe) 25 ml Q15M PRN IV DECREASED GLUCOSE; Start 02/19/19 at 20:00 Dextrose (D50w Syringe) 50 ml Q15M PRN IV DECREASED GLUCOSE; Start 02/19/19 at 20:00 Glucagon (Glucagen) 1 mg Q15M PRN IM DECREASED GLUCOSE; Start 02/19/19 at 20:00 Glucose (Glutose) 15 gm Q15M PRN BUCCAL DECREASED GLUCOSE; Start 02/19/19 at 20:00 Furosemide (Lasix) 20 mg DAILY PO Last administered on 02/23/19at 08:26; Admin Dose 20 MG; Start 02/20/19 at 16:30 Acetaminophen/ Hydrocodone Bitart ([place] (5/325)) 1 tab Q4H WHILE AWAKE PRN PO PAIN LEVEL 6-10 Last administered on 02/23/19at 17:00; Admin Dose 1 TAB; Start 02/20/19 at 16:30 Pantoprazole (Protonix Tab) 40 mg AC BREAKFAST PO Last administered on 02/23/19 06:15; Admin Dose 40 MG; Start 02/21/19 at 07:25 Spironolactone (Aldactone) 50 mg DAILY PO Last administered on 02/23/19at 08:28; Admin Dose 50 MG; Start 02/20/19 at 16:30 Propranolol HCl (Inderal) 20 mg BID PO Last administered on 02/24/19at 21:32; Admin Dose 20 MG; Start 02/22/19 at 21:00 PATRICK LYN Feb 24, 2019 23:15
[2019-02-25 00:10] VITALS: BP 111/64; PULSE 60; RESP 18
[2019-02-25] MEDS: ACCU-CHEK XX SCH (02:00)
[2019-02-25 04:10] VITALS: BP 118/62; PULSE 59; RESP 18
[2019-02-25] MEDS: PANTOPRAZOLE (EC) 40 MG TAB PO SCH (06:25)
[2019-02-25] MEDS: HYDROCODONE/APAP (5/325) TAB PO PRN ×2 (06:28→19:59)
[2019-02-25 07:17] VITALS: BP 113/67; PULSE 56; RESP 20
--- NOTE | 2019-02-25 07:22 | CONS ---
Assessment/Plan Assessment/Plan Hospital Course (Demo Recall) 63 yo male 1. Portal vein thrombosis, chronic -per Dr Meier note, pt has developed collateral circulation around thrombosis and risk of GI bleed high, no anticoagulant therapy 2. Alcoholic Liver cirrhosis with portal htn -ammonia slightly elevated 3. Extensive esophageal varices seen on Ct, s/p banding by Dr Hernandez 4. Acute Anemia, mild 5. Rt inguinal hernia containing non obstructed small bowel. 6. Acute gastritis 7. Polyps Plan: Continue present care NH3 in am Continue beta willie, and diuretics PPI Monitor HH and for active GI bleeding Pt examined and plan of care d/w Dr Hernandez Consultation Date/Type/Reason Admit Date/Time Feb 19, 2019 at 18:50 Initial Consult Date 02/22/19 Requesting Provider: JACK ANNA MD Date/Time of Note DATE: 02/25/19 TIME: 07:18 24 HR Interval Summary Free Text/Dictation Pt had banding of esophageal varices yesterday. No signs of GI bleeding. HH stable with mild anemia. Mental status wnl. Continues to have c/o abd pain. Exam/Review of Systems Exam Vitals Vital Signs Date Temp Pulse Resp B/P (MAP) Pulse Ox O2 O2 Flow FiO2 Time Delivery Rate 02/25/19 97.9 56 20 113/67 96 07:17 (82) 02/24/19 Room Air 15:33 02/24/19 10 12:00 Intake and Output 02/24/19 02/24/19 02/25/19 1515:00 23:00 07:00 IntakeIntake Total 200 ml BalanceBalance 200 ml Constitutional: alert, oriented Head: normocephalic Eyes: PERRL Respiratory: normal air movement Cardiovascular: regular rate and rhythm Gastrointestinal: soft, bowel sounds, tender Neurological: nl mental status Results Result Diagram: 02/25/19 0559 02/24/19 0549 Results 24hrs Laboratory Tests Test 02/24/19 08:03 02/24/19 17:55 02/24/19 21:24 02/25/19 02:38 Bedside Glucose 114 131 155 94 Test 02/25/19 05:59 White Blood Count 4.9 Red Blood Count 4.32 L Hemoglobin 12.9 L Hematocrit 37.9 L Mean Corpuscular 87.7 Volume Mean Corpuscular 29.9 Hemoglobin Mean Corpuscular 34.0 Hemoglobin Concent Red Cell 13.7 Distribution Width Platelet Count 55 L Mean Platelet Volume 11.8 H Immature 0.200 Granulocytes % Neutrophils % 63.0 Lymphocytes % 24.3 Monocytes % 7.6 Eosinophils % 4.7 Basophils % 0.2 Nucleated Red Blood 0.0 Cells % Immature 0.010 Granulocytes # Neutrophils # 3.1 Lymphocytes # 1.2 Monocytes # 0.4 Eosinophils # 0.2 Basophils # 0.0 Nucleated Red Blood 0.0 Cells # Medications Medication Current Medications IV Flush (NS 3 ml) 3 ml PER PROTOCOL IV ; Start 02/19/19 at 20:00 Ondansetron HCl (Zofran Inj) 4 mg Q6H PRN IV NAUSEA/VOMITING Last administered on 02/20/19at 09:02; Admin Dose 4 MG; Start 02/19/19 at 20:00 Acetaminophen (Tylenol Tab) 650 mg Q6H PRN PO .PAIN 1-3 OR TEMP; Start 02/19/19 at 20:00 Morphine Sulfate (morphine) 2 mg Q4H PRN IV .SEVERE PAIN 7-10 Last administered on 02/24/19at 08:04; Admin Dose 2 MG; Start 02/19/19 at 20:00 Diagnostic Test (Pha) (Accu-Chek) 1 ea 02 XX ; Start 02/20/19 at 02:00 Insulin Aspart (Novolog Insulin Pen) 5 unit WITH MEALS SC Last administered on 02/24/19at 17:58; Admin Dose 5 UNIT; Start 02/20/19 at 07:55 Miscellaneous Information 1 ea NOTE XX ; Start 02/19/19 at 20:00 Glucose (Glutose) 15 gm Q15M PRN PO DECREASED GLUCOSE; Start 02/19/19 at 20:00 Glucose (Glutose) 22.5 gm Q15M PRN PO DECREASED GLUCOSE; Start 02/19/19 at 20:00 Dextrose (D50w Syringe) 25 ml Q15M PRN IV DECREASED GLUCOSE; Start 02/19/19 at 20:00 Dextrose (D50w Syringe) 50 ml Q15M PRN IV DECREASED GLUCOSE; Start 02/19/19 at 20:00 Glucagon (Glucagen) 1 mg Q15M PRN IM DECREASED GLUCOSE; Start 02/19/19 at 20:00 Glucose (Glutose) 15 gm Q15M PRN BUCCAL DECREASED GLUCOSE; Start 02/19/19 at 20:00 Furosemide (Lasix) 20 mg DAILY PO Last administered on 02/23/19 08:26; Admin Dose 20 MG; Start 02/20/19 at 16:30 Acetaminophen/ Hydrocodone Bitart ([place] (5/325)) 1 tab Q4H WHILE AWAKE PRN PO PAIN LEVEL 6-10 Last administered on 02/25/19 06:28; Admin Dose 1 TAB; Start 02/20/19 at 16:30 Pantoprazole (Protonix Tab) 40 mg AC BREAKFAST PO Last administered on 02/25/19 06:25; Admin Dose 40 MG; Start 02/21/19 at 07:25 Spironolactone (Aldactone) 50 mg DAILY PO Last administered on 02/23/19 08:28; Admin Dose 50 MG; Start 02/20/19 at 16:30 Propranolol HCl (Inderal) 20 mg BID PO Last administered on 02/24/19 21:32; Admin Dose 20 MG; Start 02/22/19 at 21:00 BLANCA ARRIOLA Feb 25, 2019 07:21
[2019-02-25] MEDS: INSULIN ASPART [NOVOLOG] 3 ML PEN SC SCH ×3 (07:44→17:11)
[2019-02-25] MEDS: SPIRONOLACTONE 50 MG TAB PO SCH (08:41)
[2019-02-25] MEDS: PROPRANOLOL 20 MG TAB PO SCH ×2 (08:41→21:06)
[2019-02-25] MEDS: FUROSEMIDE 20 MG TAB PO SCH (08:41)
[2019-02-25 11:12] VITALS: BP 119/72; PULSE 55; RESP 20
--- NOTE | 2019-02-25 12:07 | PN ---
Date/Time of Note Date/Time of Note DATE: 02/25/19 TIME: 12:05 Assessment/Plan VTE Prophylaxis Risk score (from [facility])>0 risk: 3 SCD applied (from [facility]): No SCD contraindicated: other Pharmacological prophylaxis: other Pharm contraindication: other Lines/Catheters IV Catheter Type (from [facility]): Saline Lock Assessment/Plan Assessment/Plan - Gastritis- SP egd yesterday- - per GI -Alcoholic liver cirrhosis, continue propranolol, Lasix, and spironolactone. Dr. Hernandez is following in gastroenterology consultation. -Portal vein thrombosis, chronic, no indication for vascular interventions. No anticoagulation due to thrombocytopenia. Dr. Ornelas is following in vascular surgery consultation. -Pancytopenia. Dr. Meier is following in hematology consultation. -Portal hypertension -Esophageal varices -Anemia, rule out GI bleed, f/up on obtain stool for OB, continue to monitor H&H. Further recommendations based on clinical course. Plan of care discussed with Dr. Cai. Result Diagram: 02/25/1959 02/25/19 0559 Results 24hrs Laboratory Tests Test 02/24/19 17:55 02/24/19 21:24 02/25/19 02:38 02/25/19 05:59 Bedside Glucose 131 155 94 White Blood Count 4.9 Red Blood Count 4.32 L Hemoglobin 12.9 L Hematocrit 37.9 L Mean Corpuscular 87.7 Volume Mean Corpuscular 29.9 Hemoglobin Mean Corpuscular 34.0 Hemoglobin Concent Red Cell 13.7 Distribution Width Platelet Count 55 L Mean Platelet Volume 11.8 H Immature 0.200 Granulocytes % Neutrophils % 63.0 Lymphocytes % 24.3 Monocytes % 7.6 Eosinophils % 4.7 Basophils % 0.2 Nucleated Red Blood 0.0 Cells % Immature 0.010 Granulocytes # Neutrophils # 3.1 Lymphocytes # 1.2 Monocytes # 0.4 Eosinophils # 0.2 Basophils # 0.0 Nucleated Red Blood 0.0 Cells # Sodium Level 139 Potassium Level 4.3 Chloride Level 109 Carbon Dioxide Level 22 Anion Gap 8 Blood Urea Nitrogen 16 Creatinine 0.68 Est Glomerular > 60 Filtrat Rate mL/min Glucose Level 102 Calcium Level 8.8 Test 02/25/19 07:41 02/25/19 11:20 Bedside Glucose 122 133 Subjective 24 Hr Interval Summary Free Text/Dictation Gastritis- SP egd yesterday- Eyes: no complaints ENT: no complaints Respiratory: no complaints Cardiovascular: no complaints Gastrointestinal: pain Genitourinary: no complaints Musculoskeletal: no complaints Skin: no complaints Neurologic: no complaints Lymphatic: no complaints Psychological: nl mood/affect Immunologic: no complaints Exam/Review of Systems Exam Vitals Vital Signs Date Temp Pulse Resp B/P (MAP) Pulse Ox O2 O2 Flow FiO2 Time Delivery Rate 02/25/19 98.0 55 20 119/72 97 11:12 (88) 02/24/19 Room Air 15:33 02/24/19 10 12:00 Intake and Output 02/24/19 02/24/19 02/25/19 1515:00 23:00 07:00 IntakeIntake Total 200 ml 250 ml OutputOutput Total 240 ml BalanceBalance 200 ml 10 ml Constitutional: alert, oriented, well developed Psych: nl mood/affect Eyes: nl lids, nl sclera ENMT: nl external ears & nose Neck: non-tender Respiratory: clear to auscultation Cardiovascular: nl pulses, other (S1S2) Gastrointestinal: soft Musculoskeletal: nl extremities to inspection Extremities: normal pulses Neurological: nl speech Lymph: nontender Results Results 24hrs Laboratory Tests Test 02/24/19 17:55 02/24/19 21:24 02/25/19 02:38 02/25/19 05:59 Bedside Glucose 131 155 94 White Blood Count 4.9 Red Blood Count 4.32 L Hemoglobin 12.9 L Hematocrit 37.9 L Mean Corpuscular 87.7 Volume Mean Corpuscular 29.9 Hemoglobin Mean Corpuscular 34.0 Hemoglobin Concent Red Cell 13.7 Distribution Width Platelet Count 55 L Mean Platelet Volume 11.8 H Immature 0.200 Granulocytes % Neutrophils % 63.0 Lymphocytes % 24.3 Monocytes % 7.6 Eosinophils % 4.7 Basophils % 0.2 Nucleated Red Blood 0.0 Cells % Immature 0.010 Granulocytes # Neutrophils # 3.1 Lymphocytes # 1.2 Monocytes # 0.4 Eosinophils # 0.2 Basophils # 0.0 Nucleated Red Blood 0.0 Cells # Sodium Level 139 Potassium Level 4.3 Chloride Level 109 Carbon Dioxide Level 22 Anion Gap 8 Blood Urea Nitrogen 16 Creatinine 0.68 Est Glomerular > 60 Filtrat Rate mL/min Glucose Level 102 Calcium Level 8.8 Test 02/25/19 07:41 02/25/19 11:20 Bedside Glucose 122 133 Medications Medication Current Medications IV Flush (NS 3 ml) 3 ml PER PROTOCOL IV ; Start 02/19/19 at 20:00 Ondansetron HCl (Zofran Inj) 4 mg Q6H PRN IV NAUSEA/VOMITING Last administered on 02/20/19at 09:02; Admin Dose 4 MG; Start 02/19/19 at 20:00 Acetaminophen (Tylenol Tab) 650 mg Q6H PRN PO .PAIN 1-3 OR TEMP; Start 02/19/19 at 20:00 Morphine Sulfate (morphine) 2 mg Q4H PRN IV .SEVERE PAIN 7-10 Last administered on 02/24/19 08:04; Admin Dose 2 MG; Start 02/19/19 at 20:00 Diagnostic Test (Pha) (Accu-Chek) 1 ea 02 XX ; Start 02/20/19 at 02:00 Insulin Aspart (Novolog Insulin Pen) 5 unit WITH MEALS SC Last administered on 02/25/19at 11:25; Admin Dose 5 UNIT; Start 02/20/19 at 07:55 Miscellaneous Information 1 ea NOTE XX ; Start 02/19/19 at 20:00 Glucose (Glutose) 15 gm Q15M PRN PO DECREASED GLUCOSE; Start 02/19/19 at 20:00 Glucose (Glutose) 22.5 gm Q15M PRN PO DECREASED GLUCOSE; Start 02/19/19 at 20:00 Dextrose (D50w Syringe) 25 ml Q15M PRN IV DECREASED GLUCOSE; Start 02/19/19 at 20:00 Dextrose (D50w Syringe) 50 ml Q15M PRN IV DECREASED GLUCOSE; Start 02/19/19 at 20:00 Glucagon (Glucagen) 1 mg Q15M PRN IM DECREASED GLUCOSE; Start 02/19/19 at 20:00 Glucose (Glutose) 15 gm Q15M PRN BUCCAL DECREASED GLUCOSE; Start 02/19/19 at 20:00 Furosemide (Lasix) 20 mg DAILY PO Last administered on 02/25/19at 08:41; Admin Dose 20 MG; Start 02/20/19 at 16:30 Acetaminophen/ Hydrocodone Bitart ([place] (5/325)) 1 tab Q4H WHILE AWAKE PRN PO PAIN LEVEL 6-10 Last administered on 02/25/19at 06:28; Admin Dose 1 TAB; Start 02/20/19 at 16:30 Pantoprazole (Protonix Tab) 40 mg AC BREAKFAST PO Last administered on 02/25/19 06:25; Admin Dose 40 MG; Start 02/21/19 at 07:25 Spironolactone (Aldactone) 50 mg DAILY PO Last administered on 02/25/19 08:41; Admin Dose 50 MG; Start 02/20/19 at 16:30 Propranolol HCl (Inderal) 20 mg BID PO Last administered on 02/25/19 08:41; Admin Dose 20 MG; Start 02/22/19 at 21:00 PATRICK LYN Feb 25, 2019 12:07
[2019-02-25 15:03] VITALS: BP 113/63; PULSE 57; RESP 20
[2019-02-25 20:18] VITALS: BP 129/66; PULSE 57; RESP 18
[2019-02-26] VITALS: BP 125/70; PULSE 59; RESP 18
[2019-02-26] MEDS: ACCU-CHEK XX SCH (01:15)
[2019-02-26 04:20] VITALS: BP 106/56; PULSE 53; RESP 18
[2019-02-26 07:19] VITALS: BP 122/66; PULSE 54; RESP 20
[2019-02-26] MEDS: INSULIN ASPART [NOVOLOG] 3 ML PEN SC SCH ×3 (07:39→17:14)
[2019-02-26] MEDS: PANTOPRAZOLE (EC) 40 MG TAB PO SCH (07:51)
[2019-02-26] MEDS: SPIRONOLACTONE 50 MG TAB PO SCH (08:07)
[2019-02-26] MEDS: FUROSEMIDE 20 MG TAB PO SCH (08:07)
[2019-02-26] MEDS: PROPRANOLOL 20 MG TAB PO SCH ×2 (08:08→21:16)
[2019-02-26 11:31] VITALS: BP 124/67; PULSE 58; RESP 20
[2019-02-26 15:24] VITALS: BP 131/72; PULSE 56; RESP 20
--- NOTE | 2019-02-26 16:15 | CONS ---
Assessment/Plan Assessment/Plan Assessment/Plan (Daily) Assessment/Plan Hospital Course (Demo Recall) 63 yo male 1. Portal vein thrombosis, chronic -per Dr Meier note, pt has developed collateral circulation around thrombosis and risk of GI bleed high, no anticoagulant therapy 2. Alcoholic Liver cirrhosis with portal htn -ammonia slightly elevated 3. Extensive esophageal varices seen on Ct, s/p banding by Dr Hernandez 4. Acute Anemia, mild 5. Rt inguinal hernia containing non obstructed small bowel. 6. Acute gastritis 7. Polyps Plan: Continue present care NH3 in am Continue beta willie, and diuretics PPI Monitor HH and for active GI bleeding Consultation Date/Type/Reason Admit Date/Time Feb 19, 2019 at 18:50 Initial Consult Date Requesting Provider: JACK ANNA MD Date/Time of Note DATE: 02/26/19 TIME: 16:15 24 HR Interval Summary Constitutional: no complaints, improved Exam/Review of Systems Exam Vitals Vital Signs Date Temp Pulse Resp B/P (MAP) Pulse Ox O2 O2 Flow FiO2 Time Delivery Rate 02/26/19 98.0 56 20 131/72 96 15:24 (91) 02/24/19 Room Air 15:33 02/24/19 10 12:00 Intake and Output 02/25/19 02/25/19 02/26/19 1515:00 23:00 07:00 IntakeIntake Total 1200 ml 240 ml OutputOutput Total 500 ml BalanceBalance 700 ml 240 ml Constitutional: alert, oriented, well developed Psych: no complaints, nl mood/affect Head: normocephalic, atraumatic Eyes: nl conjunctiva, EOMI, nl lids, nl sclera, PERRL ENMT: nl external ears & nose, nl lips & teeth, nl nasal mucosa & septum Neck: supple, non-tender Respiratory: clear to auscultation, normal air movement Cardiovascular: regular rate and rhythm, nl pulses Gastrointestinal: soft, nl liver, spleen, non-tender Musculoskeletal: nl extremities to inspection, nl gait and stance Extremities: normal pulses Neurological: VERIFY REP II-XII intact, nl mental status, nl speech, nl strength Skin: nl turgor; No rash or lesions Lymph: nl lymph nodes Results Result Diagram: 02/25/19 0559 02/25/19 0559 Results 24hrs Laboratory Tests Test 02/25/19 17:06 02/26/19 05:29 02/26/19 07:36 02/26/19 11:20 Bedside Glucose 102 95 144 Ammonia 77 H Medications Medication Current Medications IV Flush (NS 3 ml) 3 ml PER PROTOCOL IV ; Start 02/19/19 at 20:00 Ondansetron HCl (Zofran Inj) 4 mg Q6H PRN IV NAUSEA/VOMITING Last administered on 02/20/19at 09:02; Admin Dose 4 MG; Start 02/19/19 at 20:00 Acetaminophen (Tylenol Tab) 650 mg Q6H PRN PO .PAIN 1-3 OR TEMP; Start 02/19/19 at 20:00 Morphine Sulfate (morphine) 2 mg Q4H PRN IV .SEVERE PAIN 7-10 Last administered on 02/24/19at 08:04; Admin Dose 2 MG; Start 02/19/19 at 20:00 Diagnostic Test (Pha) (Accu-Chek) 1 ea 02 XX ; Start 02/20/19 at 02:00 Insulin Aspart (Novolog Insulin Pen) 5 unit WITH MEALS SC Last administered on 02/26/19at 11:22; Admin Dose 5 UNIT; Start 02/20/19 at 07:55 Miscellaneous Information 1 ea NOTE XX ; Start 02/19/19 at 20:00 Glucose (Glutose) 15 gm Q15M PRN PO DECREASED GLUCOSE; Start 02/19/19 at 20:00 Glucose (Glutose) 22.5 gm Q15M PRN PO DECREASED GLUCOSE; Start 02/19/19 at 20:00 Dextrose (D50w Syringe) 25 ml Q15M PRN IV DECREASED GLUCOSE; Start 02/19/19 at 20:00 Dextrose (D50w Syringe) 50 ml Q15M PRN IV DECREASED GLUCOSE; Start 02/19/19 at 20:00 Glucagon (Glucagen) 1 mg Q15M PRN IM DECREASED GLUCOSE; Start 02/19/19 at 20:00 Glucose (Glutose) 15 gm Q15M PRN BUCCAL DECREASED GLUCOSE; Start 02/19/19 at 20:00 Furosemide (Lasix) 20 mg DAILY PO Last administered on 02/26/19at 08:07; Admin Dose 20 MG; Start 02/20/19 at 16:30 Acetaminophen/ Hydrocodone Bitart ([place] (5/325)) 1 tab Q4H WHILE AWAKE PRN PO PAIN LEVEL 6-10 Last administered on 02/25/19 19:59; Admin Dose 1 TAB; Start 02/20/19 at 16:30 Pantoprazole (Protonix Tab) 40 mg AC BREAKFAST PO Last administered on 02/26/19at 07:51; Admin Dose 40 MG; Start 02/21/19 at 07:25 Spironolactone (Aldactone) 50 mg DAILY PO Last administered on 02/26/19 08:07; Admin Dose 50 MG; Start 02/20/19 at 16:30 Propranolol HCl (Inderal) 20 mg BID PO Last administered on 02/26/19 08:08; Admin Dose 20 MG; Start 02/22/19 at 21:00 SOCO HERNANDEZ MD Feb 26, 2019 16:15
[2019-02-26 20:24] VITALS: BP 126/66; PULSE 60; RESP 20
[2019-02-26] MEDS: HYDROCODONE/APAP (5/325) TAB PO PRN (21:16)
[2019-02-27] VITALS (7 sets, daily range): BP systolic 108–128; BP diastolic 55–75; PULSE 53–62; RESP 18–20
[2019-02-27] MEDS: ACCU-CHEK XX SCH (02:00)
[2019-02-27] MEDS: PANTOPRAZOLE (EC) 40 MG TAB PO SCH (08:02)
[2019-02-27] MEDS: FUROSEMIDE 20 MG TAB PO SCH (08:16)
[2019-02-27] MEDS: SPIRONOLACTONE 50 MG TAB PO SCH (08:16)
[2019-02-27] MEDS: PROPRANOLOL 20 MG TAB PO SCH ×2 (08:17→22:07)
[2019-02-27] MEDS: INSULIN ASPART [NOVOLOG] 3 ML PEN SC SCH ×3 (08:43→17:46)
--- NOTE | 2019-02-27 13:15 | CONS ---
Assessment/Plan Assessment/Plan Hospital Course (Demo Recall) #Portal vein thrombosis - 2/2 ETOH Cirrhosis #Etoh cirrhosis #Thrombocytopenia #Esophageal varices Ct, s/p banding by Dr Hernandez -AT this time there is no indication for portal vein thrombosis. This is a chronic thrombosis secondary to long standing cirrhosis. Furthermore the patient has already developed collateral veins around this thrombosed vein. Also pt is severe thrombocytopenic and any anticoagulation could put him at increased risk for GI bleed. -continue current management for cirrhosis and varices Consultation Date/Type/Reason Admit Date/Time Feb 19, 2019 at 18:50 Initial Consult Date 02/22/19 Type of Consult hematology Reason for Consultation portal vein thrombosis Requesting Provider: JACK ANNA MD Date/Time of Note DATE: 02/27/19 TIME: 13:12 24 HR Interval Summary Free Text/Dictation no acute overnight events Exam/Review of Systems Exam Vitals Vital Signs Date Temp Pulse Resp B/P (MAP) Pulse Ox O2 O2 Flow FiO2 Time Delivery Rate 02/27/19 97.8 56 20 121/65 93 11:03 (83) 02/27/19 Room Air 04:31 02/24/19 10 12:00 Intake and Output 02/26/19 02/26/19 02/27/19 1515:00 23:00 07:00 IntakeIntake Total 950 ml 400 ml BalanceBalance 950 ml 400 ml Constitutional: alert, oriented Psych: no complaints Head: normocephalic Eyes: nl conjunctiva ENMT: nl external ears & nose Neck: supple Respiratory: clear to auscultation Cardiovascular: regular rate and rhythm Gastrointestinal: soft Musculoskeletal: nl extremities to inspection Results Result Diagram: 02/27/19 0602 02/27/19 0602 Results 24hrs Laboratory Tests Test 02/26/19 17:11 02/26/19 21:21 02/27/19 06:02 02/27/19 08:03 Bedside Glucose 124 117 97 White Blood Count 4.1 L Red Blood Count 4.36 L Hemoglobin 12.9 L Hematocrit 37.8 L Mean Corpuscular 86.7 Volume Mean Corpuscular 29.6 Hemoglobin Mean Corpuscular 34.1 Hemoglobin Concent Red Cell 13.9 Distribution Width Platelet Count 58 L Mean Platelet Volume 12.5 H Immature 0.200 Granulocytes % Neutrophils % 59.4 Lymphocytes % 27.4 Monocytes % 7.6 Eosinophils % 4.9 Basophils % 0.5 Nucleated Red Blood 0.0 Cells % Immature 0.010 Granulocytes # Neutrophils # 2.4 Lymphocytes # 1.1 Monocytes # 0.3 Eosinophils # 0.2 Basophils # 0.0 Nucleated Red Blood 0.0 Cells # Sodium Level 136 Potassium Level 4.0 Chloride Level 108 Carbon Dioxide Level 23 Anion Gap 5 Blood Urea Nitrogen 16 Creatinine 0.70 Est Glomerular > 60 Filtrat Rate mL/min Glucose Level 109 Calcium Level 8.5 Test 02/27/19 11:50 Bedside Glucose 125 Medications Medication Current Medications IV Flush (NS 3 ml) 3 ml PER PROTOCOL IV ; Start 02/19/19 at 20:00 Ondansetron HCl (Zofran Inj) 4 mg Q6H PRN IV NAUSEA/VOMITING Last administered on 02/20/19at 09:02; Admin Dose 4 MG; Start 02/19/19 at 20:00 Acetaminophen (Tylenol Tab) 650 mg Q6H PRN PO .PAIN 1-3 OR TEMP; Start 02/19/19 at 20:00 Morphine Sulfate (morphine) 2 mg Q4H PRN IV .SEVERE PAIN 7-10 Last administered on 02/24/19at 08:04; Admin Dose 2 MG; Start 02/19/19 at 20:00 Diagnostic Test (Pha) (Accu-Chek) 1 ea 02 XX ; Start 02/20/19 at 02:00 Insulin Aspart (Novolog Insulin Pen) 5 unit WITH MEALS SC Last administered on 02/27/19at 11:58; Admin Dose 5 UNIT; Start 02/20/19 at 07:55 Miscellaneous Information 1 ea NOTE XX ; Start 02/19/19 at 20:00 Glucose (Glutose) 15 gm Q15M PRN PO DECREASED GLUCOSE; Start 02/19/19 at 20:00 Glucose (Glutose) 22.5 gm Q15M PRN PO DECREASED GLUCOSE; Start 02/19/19 at 20:00 Dextrose (D50w Syringe) 25 ml Q15M PRN IV DECREASED GLUCOSE; Start 02/19/19 at 20:00 Dextrose (D50w Syringe) 50 ml Q15M PRN IV DECREASED GLUCOSE; Start 02/19/19 at 20:00 Glucagon (Glucagen) 1 mg Q15M PRN IM DECREASED GLUCOSE; Start 02/19/19 at 20:00 Glucose (Glutose) 15 gm Q15M PRN BUCCAL DECREASED GLUCOSE; Start 02/19/19 at 20:00 Furosemide (Lasix) 20 mg DAILY PO Last administered on 02/27/19 08:16; Admin Dose 20 MG; Start 02/20/19 at 16:30 Acetaminophen/ Hydrocodone Bitart ([place] (5/325)) 1 tab Q4H WHILE AWAKE PRN PO PAIN LEVEL 6-10 Last administered on 02/26/19at 21:16; Admin Dose 1 TAB; Start 02/20/19 at 16:30 Pantoprazole (Protonix Tab) 40 mg AC BREAKFAST PO Last administered on 02/27/19 08:02; Admin Dose 40 MG; Start 02/21/19 at 07:25 Spironolactone (Aldactone) 50 mg DAILY PO Last administered on 02/27/19 08:16; Admin Dose 50 MG; Start 02/20/19 at 16:30 Propranolol HCl (Inderal) 20 mg BID PO Last administered on 02/27/19 08:17; Admin Dose 20 MG; Start 02/22/19 at 21:00 SYED BAUTISTA M.D. Feb 27, 2019 13:15
--- NOTE | 2019-02-27 14:40 | PN ---
Date/Time of Note Date/Time of Note DATE: 02/27/19 TIME: 14:37 Assessment/Plan VTE Prophylaxis Risk score (from Ns)>0 risk: 3 SCD applied (from Ns): Yes Pharmacological prophylaxis: NA/contraindicated Pharm contraindication: thrombocytopenia Lines/Catheters [facility] Saline Lock Assessment/Plan Hospital Course Patient is complains of abdominal pain, able to tolerate diet without nausea and vomiting Assessment/Plan -Alcoholic liver cirrhosis, continue propranolol, Lasix, and spironolactone. Dr. Hernandez is following in gastroenterology consultation. -Portal vein thrombosis, chronic, no indication for vascular interventions. No anticoagulation due to thrombocytopenia. Dr. Ornelas is following in vascular surgery consultation. -Pancytopenia. Dr. Meier is following in hematology consultation. -Portal hypertension -Esophageal varices, status post banding by Dr. Hernandez during EGD. -Anemia, rule out GI bleed, f/up on obtain stool for OB, continue to monitor H&H. Further recommendations based on clinical course. Plan of care discussed with Dr. Cai. Result Diagram: 02/27/19 0602 02/27/19 0602 Results 24hrs Laboratory Tests Test 02/26/19 17:11 02/26/19 21:21 02/27/19 06:02 02/27/19 08:03 Bedside Glucose 124 117 97 White Blood Count 4.1 L Red Blood Count 4.36 L Hemoglobin 12.9 L Hematocrit 37.8 L Mean Corpuscular 86.7 Volume Mean Corpuscular 29.6 Hemoglobin Mean Corpuscular 34.1 Hemoglobin Concent Red Cell 13.9 Distribution Width Platelet Count 58 L Mean Platelet Volume 12.5 H Immature 0.200 Granulocytes % Neutrophils % 59.4 Lymphocytes % 27.4 Monocytes % 7.6 Eosinophils % 4.9 Basophils % 0.5 Nucleated Red Blood 0.0 Cells % Immature 0.010 Granulocytes # Neutrophils # 2.4 Lymphocytes # 1.1 Monocytes # 0.3 Eosinophils # 0.2 Basophils # 0.0 Nucleated Red Blood 0.0 Cells # Sodium Level 136 Potassium Level 4.0 Chloride Level 108 Carbon Dioxide Level 23 Anion Gap 5 Blood Urea Nitrogen 16 Creatinine 0.70 Est Glomerular > 60 Filtrat Rate mL/min Glucose Level 109 Calcium Level 8.5 Test 02/27/19 11:50 Bedside Glucose 125 Exam/Review of Systems Exam Vitals Vital Signs Date Temp Pulse Resp B/P (MAP) Pulse Ox O2 O2 Flow FiO2 Time Delivery Rate 02/27/19 97.8 56 20 121/65 93 11:03 (83) 02/27/19 Room Air 04:31 02/24/19 10 12:00 Intake and Output 02/26/19 02/26/19 02/27/19 1515:00 23:00 07:00 IntakeIntake Total 950 ml 400 ml BalanceBalance 950 ml 400 ml Exam Constitutional: alert, oriented Respiratory: clear to auscultation Cardiovascular: regular rate and rhythm Gastrointestinal: soft, distended, tender Musculoskeletal: nl extremities to inspection Extremities: normal pulses Neurological: nl mental status Skin: nl turgor Results Results 24hrs Laboratory Tests Test 02/26/19 17:11 02/26/19 21:21 02/27/19 06:02 02/27/19 08:03 Bedside Glucose 124 117 97 White Blood Count 4.1 L Red Blood Count 4.36 L Hemoglobin 12.9 L Hematocrit 37.8 L Mean Corpuscular 86.7 Volume Mean Corpuscular 29.6 Hemoglobin Mean Corpuscular 34.1 Hemoglobin Concent Red Cell 13.9 Distribution Width Platelet Count 58 L Mean Platelet Volume 12.5 H Immature 0.200 Granulocytes % Neutrophils % 59.4 Lymphocytes % 27.4 Monocytes % 7.6 Eosinophils % 4.9 Basophils % 0.5 Nucleated Red Blood 0.0 Cells % Immature 0.010 Granulocytes # Neutrophils # 2.4 Lymphocytes # 1.1 Monocytes # 0.3 Eosinophils # 0.2 Basophils # 0.0 Nucleated Red Blood 0.0 Cells # Sodium Level 136 Potassium Level 4.0 Chloride Level 108 Carbon Dioxide Level 23 Anion Gap 5 Blood Urea Nitrogen 16 Creatinine 0.70 Est Glomerular > 60 Filtrat Rate mL/min Glucose Level 109 Calcium Level 8.5 Test 02/27/19 11:50 Bedside Glucose 125 Medications Medication Current Medications IV Flush (NS 3 ml) 3 ml PER PROTOCOL IV ; Start 02/19/19 at 20:00 Ondansetron HCl (Zofran Inj) 4 mg Q6H PRN IV NAUSEA/VOMITING Last administered on 02/20/19at 09:02; Admin Dose 4 MG; Start 02/19/19 at 20:00 Acetaminophen (Tylenol Tab) 650 mg Q6H PRN PO .PAIN 1-3 OR TEMP; Start 02/19/19 at 20:00 Morphine Sulfate (morphine) 2 mg Q4H PRN IV .SEVERE PAIN 7-10 Last administered on 02/24/19at 08:04; Admin Dose 2 MG; Start 02/19/19 at 20:00 Diagnostic Test (Pha) (Accu-Chek) 1 ea 02 XX ; Start 02/20/19 at 02:00 Insulin Aspart (Novolog Insulin Pen) 5 unit WITH MEALS SC Last administered on 02/27/19at 11:58; Admin Dose 5 UNIT; Start 02/20/19 at 07:55 Miscellaneous Information 1 ea NOTE XX ; Start 02/19/19 at 20:00 Glucose (Glutose) 15 gm Q15M PRN PO DECREASED GLUCOSE; Start 02/19/19 at 20:00 Glucose (Glutose) 22.5 gm Q15M PRN PO DECREASED GLUCOSE; Start 02/19/19 at 20:00 Dextrose (D50w Syringe) 25 ml Q15M PRN IV DECREASED GLUCOSE; Start 02/19/19 at 20:00 Dextrose (D50w Syringe) 50 ml Q15M PRN IV DECREASED GLUCOSE; Start 02/19/19 at 20:00 Glucagon (Glucagen) 1 mg Q15M PRN IM DECREASED GLUCOSE; Start 02/19/19 at 20:00 Glucose (Glutose) 15 gm Q15M PRN BUCCAL DECREASED GLUCOSE; Start 02/19/19 at 20:00 Furosemide (Lasix) 20 mg DAILY PO Last administered on 02/27/19at 08:16; Admin Dose 20 MG; Start 02/20/19 at 16:30 Acetaminophen/ Hydrocodone Bitart ([place] (5/325)) 1 tab Q4H WHILE AWAKE PRN PO PAIN LEVEL 6-10 Last administered on 02/26/19at 21:16; Admin Dose 1 TAB; Start 02/20/19 at 16:30 Pantoprazole (Protonix Tab) 40 mg AC BREAKFAST PO Last administered on 02/27/19at 08:02; Admin Dose 40 MG; Start 02/21/19 at 07:25 Spironolactone (Aldactone) 50 mg DAILY PO Last administered on 02/27/19at 08:16; Admin Dose 50 MG; Start 02/20/19 at 16:30 Propranolol HCl (Inderal) 20 mg BID PO Last administered on 02/27/19at 08:17; Admin Dose 20 MG; Start 02/22/19 at 21:00 BRENNA SPEARS Feb 27, 2019 14:40
[2019-02-27] MEDS: LACTULOSE 30ML CUP PO SCH ×2 (15:12→22:08)
--- NOTE | 2019-02-27 19:13 | CONS ---
Assessment/Plan Assessment/Plan Assessment/Plan (Daily) Assessment/Plan Hospital Course (Demo Recall) 63 yo male 1. Portal vein thrombosis, chronic -per Dr Meier note, pt has developed collateral circulation around thrombosis and risk of GI bleed high, no anticoagulant therapy 2. Alcoholic Liver cirrhosis with portal htn -ammonia slightly elevated 3. Extensive esophageal varices seen on Ct, s/p banding by Dr Hernandez 4. Acute Anemia, mild 5. Rt inguinal hernia containing non obstructed small bowel. 6. Acute gastritis 7. Polyps Plan: Continue present care NH3 in am Continue beta willie, and diuretics PPI Monitor HH and for active GI bleeding Consultation Date/Type/Reason Admit Date/Time Feb 19, 2019 at 18:50 Initial Consult Date Requesting Provider: JACK ANNA MD Date/Time of Note DATE: 02/27/19 TIME: 19:13 24 HR Interval Summary Constitutional: no complaints, improved Exam/Review of Systems Exam Vitals Vital Signs Date Temp Pulse Resp B/P (MAP) Pulse Ox O2 O2 Flow FiO2 Time Delivery Rate 02/27/19 98.0 53 20 124/64 95 15:06 (84) 02/27/19 Room Air 04:31 02/24/19 10 12:00 Intake and Output 02/26/19 02/26/19 02/27/19 1515:00 23:00 07:00 IntakeIntake Total 950 ml 400 ml BalanceBalance 950 ml 400 ml Constitutional: alert, oriented, well developed Psych: no complaints, nl mood/affect Head: normocephalic, atraumatic Eyes: nl conjunctiva, EOMI, nl lids, nl sclera, PERRL ENMT: nl external ears & nose, nl lips & teeth, nl nasal mucosa & septum Neck: supple, non-tender Respiratory: clear to auscultation, normal air movement Cardiovascular: regular rate and rhythm, nl pulses Gastrointestinal: soft, nl liver, spleen, non-tender Musculoskeletal: nl extremities to inspection, nl gait and stance Extremities: normal pulses Neurological: STORE ASSISTANT II-XII intact, nl mental status, nl speech, nl strength Skin: nl turgor; No rash or lesions Lymph: nl lymph nodes Results Result Diagram: 02/27/19 0602 02/27/19 0602 Results 24hrs Laboratory Tests Test 02/26/19 21:21 02/27/19 06:02 02/27/19 08:03 02/27/19 11:50 Bedside Glucose 117 97 125 White Blood Count 4.1 L Red Blood Count 4.36 L Hemoglobin 12.9 L Hematocrit 37.8 L Mean Corpuscular 86.7 Volume Mean Corpuscular 29.6 Hemoglobin Mean Corpuscular 34.1 Hemoglobin Concent Red Cell 13.9 Distribution Width Platelet Count 58 L Mean Platelet Volume 12.5 H Immature 0.200 Granulocytes % Neutrophils % 59.4 Lymphocytes % 27.4 Monocytes % 7.6 Eosinophils % 4.9 Basophils % 0.5 Nucleated Red Blood 0.0 Cells % Immature 0.010 Granulocytes # Neutrophils # 2.4 Lymphocytes # 1.1 Monocytes # 0.3 Eosinophils # 0.2 Basophils # 0.0 Nucleated Red Blood 0.0 Cells # Sodium Level 136 Potassium Level 4.0 Chloride Level 108 Carbon Dioxide Level 23 Anion Gap 5 Blood Urea Nitrogen 16 Creatinine 0.70 Est Glomerular > 60 Filtrat Rate mL/min Glucose Level 109 Calcium Level 8.5 Test 02/27/19 17:37 Bedside Glucose 104 Medications Medication Current Medications IV Flush (NS 3 ml) 3 ml PER PROTOCOL IV ; Start 02/19/19 at 20:00 Ondansetron HCl (Zofran Inj) 4 mg Q6H PRN IV NAUSEA/VOMITING Last administered on 02/20/19at 09:02; Admin Dose 4 MG; Start 02/19/19 at 20:00 Acetaminophen (Tylenol Tab) 650 mg Q6H PRN PO .PAIN 1-3 OR TEMP; Start 02/19/19 at 20:00 Morphine Sulfate (morphine) 2 mg Q4H PRN IV .SEVERE PAIN 7-10 Last administered on 02/24/19at 08:04; Admin Dose 2 MG; Start 02/19/19 at 20:00 Diagnostic Test (Pha) (Accu-Chek) 1 ea 02 XX ; Start 02/20/19 at 02:00 Insulin Aspart (Novolog Insulin Pen) 5 unit WITH MEALS SC Last administered on 02/27/19at 17:46; Admin Dose 5 UNIT; Start 02/20/19 at 07:55 Miscellaneous Information 1 ea NOTE XX ; Start 02/19/19 at 20:00 Glucose (Glutose) 15 gm Q15M PRN PO DECREASED GLUCOSE; Start 02/19/19 at 20:00 Glucose (Glutose) 22.5 gm Q15M PRN PO DECREASED GLUCOSE; Start 02/19/19 at 20:00 Dextrose (D50w Syringe) 25 ml Q15M PRN IV DECREASED GLUCOSE; Start 02/19/19 at 20:00 Dextrose (D50w Syringe) 50 ml Q15M PRN IV DECREASED GLUCOSE; Start 02/19/19 at 20:00 Glucagon (Glucagen) 1 mg Q15M PRN IM DECREASED GLUCOSE; Start 02/19/19 at 20:00 Glucose (Glutose) 15 gm Q15M PRN BUCCAL DECREASED GLUCOSE; Start 02/19/19 at 20:00 Furosemide (Lasix) 20 mg DAILY PO Last administered on 02/27/19at 08:16; Admin Dose 20 MG; Start 02/20/19 at 16:30 Acetaminophen/ Hydrocodone Bitart ([place] (5/325)) 1 tab Q4H WHILE AWAKE PRN PO PAIN LEVEL 6-10 Last administered on 02/26/19at 21:16; Admin Dose 1 TAB; Start 02/20/19 at 16:30 Pantoprazole (Protonix Tab) 40 mg AC BREAKFAST PO Last administered on 02/27/19 08:02; Admin Dose 40 MG; Start 02/21/19 at 07:25 Spironolactone (Aldactone) 50 mg DAILY PO Last administered on 02/27/19at 08:16; Admin Dose 50 MG; Start 02/20/19 at 16:30 Propranolol HCl (Inderal) 20 mg BID PO Last administered on 02/27/19 08:17; Admin Dose 20 MG; Start 02/22/19 at 21:00 Lactulose (Enulose) 10 gm Q8 PO Last administered on 02/27/19at 15:12; Admin Dose 10 GM; Start 02/27/19 at 15:00 SOCO HERNANDEZ MD Feb 27, 2019 19:13
--- NOTE | 2019-02-27 20:59 | PN ---
Date/Time of Note Date/Time of Note DATE: 02/27/19 TIME: 20:58 Assessment/Plan Lines/Catheters IV Catheter Type (from Nrs): Saline Lock Assessment/Plan Chief Complaint/Hosp Course no current vascular intervention is needed Continue with supportive care Subjective 24 Hr Interval Summary Constitutional: no complaints, BM, flatus Pain Control: well controlled Exam/Review of Systems Vital Signs Vitals Vital Signs Date Temp Pulse Resp B/P (MAP) Pulse Ox O2 O2 Flow FiO2 Time Delivery Rate 02/27/19 98.1 57 18 126/67 96 20:10 (86) 02/27/19 Room Air 04:31 02/24/19 10 12:00 Intake and Output 02/26/19 02/26/19 02/27/19 1515:00 23:00 07:00 IntakeIntake Total 950 ml 400 ml BalanceBalance 950 ml 400 ml Exam Constitutional: alert Psych: no complaints Head: normocephalic, atraumatic ENMT: mucosa pink and moist Neck: supple, non-tender Respiratory: normal air movement Cardiovascular: regular rate and rhythm, edema Gastrointestinal: soft, distended, splenomegaly Musculoskeletal: swelling Extremities: edema Results Result Diagram: 02/27/19 0602 02/27/19 0602 MEENU YIN MD Feb 27, 2019 20:59
[2019-02-28 00:19] VITALS: BP 133/71; PULSE 55; RESP 18
[2019-02-28] MEDS: ACCU-CHEK XX SCH (02:00)
[2019-02-28 04:16] VITALS: BP 122/68; PULSE 55; RESP 18
[2019-02-28] MEDS: LACTULOSE 30ML CUP PO SCH ×2 (07:01→13:26)
[2019-02-28] MEDS: PANTOPRAZOLE (EC) 40 MG TAB PO SCH (07:02)
[2019-02-28 07:17] VITALS: BP 131/71; PULSE 55; RESP 20
[2019-02-28] MEDS: INSULIN ASPART [NOVOLOG] 3 ML PEN SC SCH ×3 (08:11→17:25)
[2019-02-28] MEDS: PROPRANOLOL 20 MG TAB PO SCH (08:24)
[2019-02-28] MEDS: FUROSEMIDE 20 MG TAB PO SCH (08:24)
[2019-02-28] MEDS: SPIRONOLACTONE 50 MG TAB PO SCH (08:25)
[2019-02-28 11:28] VITALS: BP 129/69; PULSE 65; RESP 20
--- NOTE | 2019-02-28 14:07 | CONS ---
Assessment/Plan Assessment/Plan Hospital Course (Demo Recall) #Portal vein thrombosis - 2/2 ETOH Cirrhosis #Etoh cirrhosis #Thrombocytopenia #Esophageal varices Ct, s/p banding by Dr Hernandez -AT this time there is no indication for portal vein thrombosis. This is a chronic thrombosis secondary to long standing cirrhosis. Furthermore the patient has already developed collateral veins around this thrombosed vein. Also pt is severe thrombocytopenic and any anticoagulation could put him at increased risk for GI bleed. -continue current management for cirrhosis and varices Consultation Date/Type/Reason Admit Date/Time Feb 19, 2019 at 18:50 Initial Consult Date 02/22/19 Type of Consult hematology Reason for Consultation portal vein thrombosis Requesting Provider: JACK ANNA MD Date/Time of Note DATE: 02/28/19 TIME: 14:06 24 HR Interval Summary Free Text/Dictation no acute overnight events Exam/Review of Systems Exam Vitals Vital Signs Date Temp Pulse Resp B/P (MAP) Pulse Ox O2 O2 Flow FiO2 Time Delivery Rate 02/28/19 98.0 65 20 129/69 98 11:28 (89) 02/27/19 Room Air 04:31 02/24/19 10 12:00 Intake and Output 02/27/19 02/27/19 02/28/19 1515:00 23:00 07:00 IntakeIntake Total 950 ml BalanceBalance 950 ml Constitutional: alert, oriented Psych: no complaints Head: normocephalic Eyes: nl conjunctiva ENMT: nl external ears & nose Neck: supple Respiratory: clear to auscultation Cardiovascular: regular rate and rhythm Gastrointestinal: soft Musculoskeletal: nl extremities to inspection Results Result Diagram: 02/27/19 0602 02/27/19 0602 Results 24hrs Laboratory Tests Test 02/27/19 17:37 02/28/19 06:22 02/28/19 07:49 02/28/19 11:43 Bedside Glucose 104 105 102 Ammonia 32 #H Medications Medication Current Medications IV Flush (NS 3 ml) 3 ml PER PROTOCOL IV ; Start 02/19/19 at 20:00 Ondansetron HCl (Zofran Inj) 4 mg Q6H PRN IV NAUSEA/VOMITING Last administered on 02/20/19at 09:02; Admin Dose 4 MG; Start 02/19/19 at 20:00 Acetaminophen (Tylenol Tab) 650 mg Q6H PRN PO .PAIN 1-3 OR TEMP; Start 02/19/19 at 20:00 Morphine Sulfate (morphine) 2 mg Q4H PRN IV .SEVERE PAIN 7-10 Last administered on 02/24/19at 08:04; Admin Dose 2 MG; Start 02/19/19 at 20:00 Diagnostic Test (Pha) (Accu-Chek) 1 ea 02 XX ; Start 02/20/19 at 02:00 Insulin Aspart (Novolog Insulin Pen) 5 unit WITH MEALS SC Last administered on 02/28/19at 11:48; Admin Dose 5 UNIT; Start 02/20/19 at 07:55 Miscellaneous Information 1 ea NOTE XX ; Start 02/19/19 at 20:00 Glucose (Glutose) 15 gm Q15M PRN PO DECREASED GLUCOSE; Start 02/19/19 at 20:00 Glucose (Glutose) 22.5 gm Q15M PRN PO DECREASED GLUCOSE; Start 02/19/19 at 20:0 0 Dextrose (D50w Syringe) 25 ml Q15M PRN IV DECREASED GLUCOSE; Start 02/19/19 at 20:00 Dextrose (D50w Syringe) 50 ml Q15M PRN IV DECREASED GLUCOSE; Start 02/19/19 at 20:00 Glucagon (Glucagen) 1 mg Q15M PRN IM DECREASED GLUCOSE; Start 02/19/19 at 20:00 Glucose (Glutose) 15 gm Q15M PRN BUCCAL DECREASED GLUCOSE; Start 02/19/19 at 20:00 Furosemide (Lasix) 20 mg DAILY PO Last administered on 02/28/19at 08:24; Admin Dose 20 MG; Start 02/20/19 at 16:30 Acetaminophen/ Hydrocodone Bitart ([place] (5/325)) 1 tab Q4H WHILE AWAKE PRN PO PAIN LEVEL 6-10 Last administered on 02/26/19at 21:16; Admin Dose 1 TAB; Start 02/20/19 at 16:30 Pantoprazole (Protonix Tab) 40 mg AC BREAKFAST PO Last administered on 02/28/19at 07:02; Admin Dose 40 MG; Start 02/21/19 at 07:25 Spironolactone (Aldactone) 50 mg DAILY PO Last administered on 02/28/19at 08:25; Admin Dose 50 MG; Start 02/20/19 at 16:30 Propranolol HCl (Inderal) 20 mg BID PO Last administered on 02/27/19at 22:07; Admin Dose 20 MG; Start 02/22/19 at 21:00 Lactulose (Enulose) 10 gm Q8 PO Last administered on 02/28/19at 13:26; Admin Dose 10 GM; Start 02/27/19 at 15:00 SYED BAUTISTA M.D. Feb 28, 2019 14:07
[2019-02-28 15:20] VITALS: BP 125/70; PULSE 59; RESP 20
--- NOTE | 2019-03-01 00:35 | DS ---
Date/Time of Note Date/Time of Note DATE: 03/01/19 TIME: 00:32 Discharge Summary Admission/Discharge Info Admit Date/Time Feb 19, 2019 at 18:50 Discharge Date/Time Feb 28, 2019 at 18:48 Patient Condition: Stable Hx of Present Illness The patient is a 63-year-old gentleman with history of alcoholic liver cirrhosis, hypertension history of esophageal varices status post ligation 4 years ago. Patient presented to emergency room with complaints of significant abdominal pain patient developed on Wednesday and one episode of nonbloody emesis. Patient denies any fever, chills, denies any chest pain denies shortness of breath denies any bilateral lower extremity swelling. 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 Patient stated he has been compliant with his medication. Patient denies hematemesis, denies melena , denies hematochezia. Patient is admitted for further evaluation and management. Hospital Course -Alcoholic liver cirrhosis, continue propranolol, Lasix, and spironolactone. Dr. Hernandez is following in gastroenterology consultation. -Portal vein thrombosis, chronic, no indication for vascular interventions. No anticoagulation due to thrombocytopenia. Dr. Ornelas is following in vascular surgery consultation. -Pancytopenia. Dr. Meier is following in hematology consultation. -Portal hypertension -Esophageal varices, status post banding by Dr. Hernandez during EGD on 02/24/19. Pt is able to tolerate diet without nausea and vomiting. -Anemia, rule out GI bleed, stool for OB is neg, continue to monitor H&H. -Hepatic encephalopathy, contine lactulose, monitor ammonia level. Plan of care discussed with Dr. Cai. Home Meds Active Scripts Pantoprazole* (Pantoprazole*) 40 Mg Tablet., 40 MG PO AC BREAKFAST for 30 Days, TAB Prov:BRENNA SPEARS 02/28/19 Lactulose* (Lactulose*) 20 Gm/30 Ml Solution, 10 GM PO DAILY for 30 Days Prov:BRENNA SPEARS 02/28/19 Propranolol Hcl* (Propranolol Hcl*) 20 Mg Tablet, 20 MG PO BID for 30 Days, TAB Prov:BRENNA SPEARS 02/28/19 Reported Medications Sucralfate* (Carafate*) 1 Gm Tab, 1 GM PO AC MEALS AND BEDTIME, TAB 02/19/19 Spironolactone* (Aldactone*) 50 Mg Tablet, 50 MG PO DAILY, #30 TAB 02/19/19 Multivitamins* (Theragran*) 1 Tab Tab, 1 TAB PO DAILY, TAB 02/19/19 Furosemide* (Furosemide*) 20 Mg Tablet, 20 MG PO DAILY, #60 TAB 02/19/19 Hydrocodone/Acetaminophen ([place] 5-325 Tablet) 1 Each Tablet, 1 EACH PO Q4H WHILE AWAKE, TAB 02/19/19 Discontinued Reported Medications Atenolol* (Atenolol*) 25 Mg Tablet, 25 MG PO DAILY, #30 TAB 02/19/19 Follow-up Plan Follow-up with PMD in 2 weeks, follow-up with Dr. Hernandez in 2 weeks Primary Care Provider [facility]. Time spent on discharge: > 30 minutes Pending Labs Laboratory Tests Test 02/28/19 06:22 02/28/19 07:49 02/28/19 11:43 02/28/19 17:17 Ammonia 32 umol/l (9-30) Bedside 105 102 111 Glucose mg/dL (70-220) mg/dL (70-220) mg/dL (70-220) BRENNA SPEARS Mar 01, 2019 00:35
== END 2019-02-28 18:48 | disposition home or self-care (01) | DRG 432 ==
LOC: E/R 15:18 → TEL 18:50
PROVIDERS: ADMIT Internal Medicine; ATTEND Internal Medicine
PROC: 06L38CZ Occlusion of Esophageal Vein with Extraluminal Device, Via Natural or Artificial Opening Endoscopic (ICD-10-PCS; principal; 2019-02-24 12:30)
DX: K70.31 Alcoholic cirrhosis of liver with ascites (principal); I81 Portal vein thrombosis; K29.71 Gastritis, unspecified, with bleeding; K76.6 Portal hypertension; D61.818 Other pancytopenia; I85.10 Secondary esophageal varices without bleeding; K31.7 Polyp of stomach and duodenum; D64.9 Anemia, unspecified; I10 Essential (primary) hypertension; K40.90 Unilateral inguinal hernia, without obstruction or gangrene, not specified as recurrent; D69.6 Thrombocytopenia, unspecified; K70.40 Alcoholic hepatic failure without coma; F10.10 Alcohol abuse, uncomplicated
CPT/HCPCS: 36415; 71045; 74177; 76705; 80048; 80053; 81001; 82105; 82140; 82270; 82607; 82728; 82746; 82962; 83036; 83690; 83735; 84100; 85025; 85045; 85049; 85610; 85670; 85730; 96374; 96375; J0744; J1650; J1815; J2270; J2405; J7030; Q9967